=== PATIENT | female | born 1975 | race Hispanic/Latino ===

== ENCOUNTER 2020-05-19 11:32 | Inpatient (IN) | payer MEDICAID, SELFPAY ==
[2020-05-19] VITALS (35 sets, daily range): BP systolic 72–153; BP diastolic 44–72; PULSE 46–74; RESP 12–23; TEMP 32.9–37; O2SAT 99–100; BMI 27.1
--- NOTE | ~2020-05-19 | XR_ITS ---
EXAMINATION: XR chest 1V portable INDICATION: Shortness of breath and cough TECHNIQUE: Portable AP chest at 1220 hours COMPARISON: None available FINDINGS: There are airspace opacities of the mid and lower lung zones. The lung volumes are low. The re is no pneumothorax. There appears to be a small right pleural effusion. There is enlargement of th e cardiac silhouette. Neurostimulator leads project over the lower thoracic spine. IMPRESSION: 1. Airspace opacities of the mid and lower lung zones, consistent with pneumonia versus pulmonary matthias ma, or less likely atelectasis. 2. Enlargement of the cardiac silhouette which could be due to cardiomegaly and/or pericardial effusi on. 3. Likely small right pleural effusion. Reviewed, dictated and finalized at location A. IMPRESSION: 1. Airspace opacities of the mid and lower lung zones, consistent with pneumoni a versus pulmonary edema, or less likely atelectasis. 2. Enlargement of the cardiac silhouette which could be due to cardiomegaly and /or pericardial effusion. 3. Likely small right pleural effusion.
--- NOTE | ~2020-05-19 | XR_ITS ---
EXAMINATION: XR chest 1V portable DATE: 05/21/2020 05:55 INDICATION: Intubated TECHNIQUE: frontal view of the chest was obtained. COMPARISON: Chest radiograph dated 05/20/2020 FINDINGS: Endotracheal tube tip 3.4 cm above the jimmy. Nasogastric tube extends below the left hemidiaphragm with distal tip collimated off the study. Large-bore dual-lumen right internal jugular central venou s catheter with distal tip near the superior cavoatrial junction. Spinal stimulator leads project ove r the central canal of the lower thoracic spine. No significant change in diffuse bilateral patchy airspace opacities of lungs. There are also unchang ed small bilateral pleural effusions. No pneumothorax. Cardiomegaly. IMPRESSION: 1. Unchanged diffuse bilateral patchy airspace opacities which could represent pneumonia and/or pulmo nary edema. 2. Small bilateral pleural effusions. 3. Cardiomegaly. Reviewed, dictated and finalized at location A. IMPRESSION: 1. Unchanged diffuse bilateral patchy airspace opacities which could represent pneumonia and/or pulmonary edema. 2. Small bilateral pleural effusions. 3. Cardiomegaly.
--- NOTE | ~2020-05-19 | XR_ITS ---
EXAMINATION: XR chest 1V portable DATE: 05/29/2020 05:41 INDICATION: Lung infiltrates. COVID-19 pneumonia. TECHNIQUE: A single frontal view of the chest was obtained. COMPARISON: Chest single view 05/27/2020 FINDINGS: There are airspace and interstitial opacities throughout the lungs bilaterally. No pleural effusion or pneumothorax. Cardiomegaly is noted. A right subclavian central venous catheter is seen w ith tip at the superior cavoatrial junction. Electrodes overlie the spine. IMPRESSION: 1. Diffuse lung disease with slight improvement, consistent with pneumonia versus pulmonary edema yogi henry acute respiratory distress syndrome (ARDS). 2. Cardiomegaly. Reviewed, dictated and finalized at location A. IMPRESSION: 1. Diffuse lung disease with slight improvement, consistent with pneumonia vers us pulmonary edema versus acute respiratory distress syndrome (ARDS). 2. Cardiomegaly.
--- NOTE | ~2020-05-19 | XR_ITS ---
EXAMINATION: XR chest port-a-cath/central EXAM DATE: 05/19/2020 17:54 INDICATION: Logan catheter insertion. TECHNIQUE: Portable AP frontal chest x-ray was obtained. Comparison is made to prior examination from 05/19/2020. FINDINGS: There is severe enlargement of the cardiac silhouette. There is a new right-sided Logan c atheter overlying expected position. There is no pneumothorax suspected. There are no pleural effusio ns. There is extensive bilateral perihilar acute airspace disease unchanged. The infection, acute lung in jury, edema. There are no osseous abnormalities identified. IMPRESSION: 1. No evidence postprocedure pneumothorax. 2. Extensive perihilar acute airspace disease. 3. Cardiomegaly and/or pericardial effusion. Reviewed, dictated and finalized at location A.
--- NOTE | ~2020-05-19 | XR_ITS ---
EXAMINATION: XR chest ET placement EXAM DATE: 05/19/2020 21:11 INDICATION: Respiratory failure. TECHNIQUE: Portable AP frontal chest x-ray was obtained, time stamp on image size 8:46 p.m. Compariso n is made to prior examination from earlier same day. FINDINGS: Endotracheal tube tip is about 1 centimeters above the jimmy (ideal range is between 2 to 5 cm). Both lungs are being aerated. There is a nasogastric tube seen with tip collimated off the st udy, but below the left hemidiaphragm. There is a right-sided Logan catheter in position. Extensive bilateral perihilar distribution acute airspace disease likely pneumonia, acute lung injury , or edema. Please clinically correlate. There are no sizable pleural effusions. There is no pneum othorax suspected. Cardiac silhouette is enlarged The bones and soft tissues are unremarkable. rspace disease appears unchanged. IMPRESSION: 1. ET tube could be safely retracted 1 cm. Please note this was already repositioned on a subsequent x-ray with later time stamp 2. Extensive bilateral acute airspace disease unchanged. Reviewed, dictated and finalized at location A. IMPRESSION: 1. ET tube could be safely retracted 1 cm. Please note this was already reposi tioned on a subsequent x-ray with later time stamp 2. Extensive bilateral acute airspace disease unchanged.
--- NOTE | ~2020-05-19 | XR_ITS ---
EXAMINATION: XR abdomen NG/feed tube insert EXAM DATE: 05/19/2020 21:11 INDICATION: Feeding tube placement. TECHNIQUE: Frontal projection(s) of the abdomen for interpretation. There is no prior study for ashok santamaria. FINDINGS: Feeding tube tip and side-port project over stomach, expected position. Nonobstructive bow el gas pattern. Spine stimulator device. IMPRESSION: Feeding tube overlies expected position. Reviewed, dictated and finalized at location A.
--- NOTE | ~2020-05-19 | US_ITS ---
EXAMINATION: US venous doppler [facility] DATE: 05/20/2020 10:09 INDICATION: Bilateral lower limb swelling TECHNIQUE: Oates scale images without and with compression and Doppler images of the bilateral lower e xtremity veins were obtained. COMPARISON: None FINDINGS: The right common femoral vein, profunda femoral vein, femoral vein, popliteal vein, peroneal trunk, p osterior tibial veins, and greater saphenous vein are patent. The left common femoral vein, profunda femoral vein, femoral vein, popliteal vein, peroneal trunk, po sterior tibial veins, and greater saphenous vein are patent. IMPRESSION: 1. Patent bilateral lower extremity veins. No evidence of deep venous thrombosis. Reviewed, dictated and finalized at location B. IMPRESSION: 1. Patent bilateral lower extremity veins. No evidence of deep venous thrombosi s.
--- NOTE | ~2020-05-19 | XR_ITS ---
XR chest 1V portable DATE: 05/20/2020 06:28 INDICATION: Mechanical ventilation; extensive bilateral infiltrates TECHNIQUE: Portable upright AP chest on 05/20/2020 at 0540 hours COMPARISON: 05/19/2020 portable AP chest at 2046 hours FINDINGS: ET tube in satisfactory position approximately 4.8 cm above jimmy. A nasogastric tube is n oted in the lower body of the stomach. Thoracic spinal leads are noted. Right subclavian Logan catheter, catheter tip overlying the upper right atrium. No pneumothorax. There is cardiomegaly. There are prominent bilateral relatively symmetric primarily central and lower lung zone infiltrates; distribution suggests possible pulmonary edema. Bilateral pneumonia is not ex cluded. There are small bilateral pleural effusions. IMPRESSION: No significant change of extensive bilateral pulmonary infiltrates, cardiomegaly, small p leural effusions since 05/19/2020 ET tube 4.8 cm above jimmy in satisfactory position Reviewed, dictated and finalized at location A. IMPRESSION: No significant change of extensive bilateral pulmonary infiltrates, cardiomegaly, small pleural effusions since 05/19/2020 ET tube 4.8 cm above jimmy in satisfactory position
--- NOTE | ~2020-05-19 | US_ITS ---
EXAMINATION: US renal BI DATE: 05/20/2020 10:09 INDICATION: Elevated creatinine TECHNIQUE: Multiple grayscale and Doppler ultrasound images of the kidneys were obtained. COMPARISON: None. FINDINGS: The right kidney measures 12.3 x 4.4 x 6.4 cm. The left kidney measures 11.3 x 5.4 x 5.4 cm . The kidneys demonstrate increased parenchymal echogenicity. There is no hydronephrosis. The bladder is partially decompressed by a Skelton catheter. There is apparent mild irregular bladder wall thicken ing. IMPRESSION: 1. Medical renal disease. 2. Apparent irregular bladder wall thickening which may reflect cystitis. Reviewed, dictated and finalized at location B.
--- NOTE | ~2020-05-19 | XR_ITS ---
EXAMINATION: XR chest 1V portable DATE: 05/22/2020 06:23 INDICATION: Intubated TECHNIQUE: frontal view of the chest was obtained. COMPARISON: Chest radiograph dated 05/21/2020 FINDINGS: Endotracheal tube tip 5.9 cm above the jimmy. Nasogastric tube tip in proximal side port in the body of the stomach. Dual-lumen right subclavian central venous catheter with distal tip near the superio r cavoatrial junction. Spinal stimulator leads project over the central canal of the mid to lower tho racic spine. Interval decrease in patchy airspace opacities throughout both lungs relatively sparing the apices. S mall right and tiny left pleural effusions. No pneumothorax. Cardiomegaly. IMPRESSION: 1. Endotracheal tube tip 5.9 cm above the jimmy. Consider advancement by 3 cm. 2. Improving bilateral lung disease which could represent pulmonary edema and/or pneumonia. 3. Small right and tiny left pleural effusions. 4. Cardiomegaly. Reviewed, dictated and finalized at location A. IMPRESSION: 1. Endotracheal tube tip 5.9 cm above the jimmy. Consider advancement by 3 cm. 2. Improving bilateral lung disease which could represent pulmonary edema and/o r pneumonia. 3. Small right and tiny left pleural effusions. 4. Cardiomegaly.
--- NOTE | ~2020-05-19 | XR_ITS ---
EXAMINATION: XR chest ET placement EXAM DATE: 05/19/2020 21:11 INDICATION: Intubated. TECHNIQUE: Portable AP frontal chest x-ray was obtained. Comparison is made to prior examination from earlier same date. FINDINGS: Endotracheal tube tip is 3.5 centimeters above the jimmy (ideal range is between 2 to 5 cm ). There is a nasogastric tube seen with tip collimated off the study, but below the left hemidiaphr agm. Right-sided Logan catheter. Extensive bilateral perihilar predominant acute airspace disease. Consider pneumonia, acute lung inju ry, edema. There are no sizable pleural effusions. There is no pneumothorax suspected. The cardia c silhouette is enlarged. The bones and soft tissues are unremarkable. ET tube repositioned, othe rwise no interval change. IMPRESSION: 1. Line(s) and tube(s) in position. 2. Extensive bilateral acute airspace disease unchanged. Reviewed, dictated and finalized at location A.
--- NOTE | ~2020-05-19 | XR_ITS ---
EXAMINATION: XR chest 1V portable DATE: 05/27/2020 06:05 INDICATION: Pulmonary infiltrates TECHNIQUE: frontal view of the chest was obtained. COMPARISON: Chest radiograph dated 05/23/2020 FINDINGS: Large-bore dual-lumen right internal jugular central venous catheter with distal tip at the caudal cueto perior vena cava. Significant increase in patchy airspace opacities throughout both lungs relatively sparing portions of the subpleural lung particularly at the apices. Small bilateral pleural effusions , right greater than left. No pneumothorax. Cardiomegaly spinal stimulator leads projecting over the mid to lower thoracic central canal. IMPRESSION: 1. Significant interval increase in patchy bilateral airspace opacities most likely related to pulmon becky edema although pneumonia not excludable. 2. Small bilateral pleural effusions. 3. Cardiomegaly. Reviewed, dictated and finalized at location A. IMPRESSION: 1. Significant interval increase in patchy bilateral airspace opacities most li olivia related to pulmonary edema although pneumonia not excludable. 2. Small bilateral pleural effusions. 3. Cardiomegaly.
--- NOTE | ~2020-05-19 | XR_ITS ---
EXAMINATION: XR chest 1V portable DATE: 05/23/2020 06:30 INDICATION: Intubated TECHNIQUE: frontal view of the chest was obtained. COMPARISON: Chest radiograph dated 05/22/2020 FINDINGS: Endotracheal tube tip 3.9 cm above the jimmy. Nasogastric tube tip and proximal side port in the bod y of the stomach. Dual-lumen right subclavian central venous catheter with distal tip near the superi or cavoatrial junction. Spinal stimulator leads project over the central canal of the mid to lower th oracic spine. Continued decrease in patchy airspace opacities throughout both lungs relatively sparing the apices. Small right and tiny left pleural effusions. No pneumothorax. Cardiomegaly. IMPRESSION: 1. Limited improvement in bilateral lung disease which could represent pulmonary edema and/or pneumon ia. 2. Small right and tiny left pleural effusions. 3. Cardiomegaly. Reviewed, dictated and finalized at location A. IMPRESSION: 1. Limited improvement in bilateral lung disease which could represent pulmonar y edema and/or pneumonia. 2. Small right and tiny left pleural effusions. 3. Cardiomegaly.
--- NOTE | ~2020-05-19 | XR_ITS ---
EXAMINATION: XR fl guide central line place EXAM DATE: 05/19/2020 17:33 INDICATION: Logan catheter insertion. TECHNIQUE: Fluoroscopy used during XR fl guide central line place performed by Dr. Kashif Vargas. The DAP for this procedure was 0.5 mGym2. FINDINGS: Image demonstrates right-sided Logan catheter overlying expected position. There is evid ence of bilateral airspace disease. Correlate with procedure note. IMPRESSION: Fluoroscopy used during XR fl guide central line place. Reviewed, dictated and finalized at location A.
--- NOTE | 2020-05-19 11:00 | ECG_ITS ---
Measurements Intervals [place] Rate: 56 P: 58 CO: 160 QRS: 59 QRSD: 89 T: 32 QT: 494 QTc: 481 Interpretive Statements SINUS BRADYCARDIA DELAYED PRECORDIAL R/S TRANSITION PROLONGED QT INTERVAL BASELINE WANDER- V1, V3 ABNORMAL ECG Electronically Signed On 05-20-2020 6:54:50 CDT by Collins Aguirre D.O.
[2020-05-19 11:51] LABS: Glucose Point of Care 100 (65-105)
--- NOTE | 2020-05-19 12:10 | ED.GENADULT ---
HPI - General Adult General Chief complaint: Shortness of Breath/Dyspnea Stated complaint: CP/SOB Time Seen by Provider: 05/19/20 11:37 History of Present Illness HPI narrative: Patient is a 46-year-old female who presents the ER with multiple complaints. She is Filipino-speaking and her daughter as well as a Stratus were used for history taking. Patient reports over the last week she has had a multitude of issues. She began with feeling fatigued. She then began having some nausea and vomiting. She reports headache in the back of her head as well as some back pain. Patient does have history of chronic back pain for which she has a spinal stimulator. Patient is also grown much more short of breath and is audibly wheezing in the ER. She has been seen by her PCP who has prescribed her vitamins for anemia. She has not had a COVID swab. No known sick contacts. She stays at home with her family who is otherwise well. She denies aspirating on any of her vomit. Reports she has not kept anything down for a week. Related Data Home Medications Medication Instructions Recorded Confirmed atorvastatin [Lipitor] 40 mg PO HS 05/19/20 carvedilol [Coreg] 25 mg PO BID 05/19/20 furosemide [Lasix] 40 mg PO BID 05/19/20 metformin 850 mg PO BID 05/19/20 pyridoxine (vitamin B6) [Vitamin 250 mg PO DAILY 05/19/20 B-6] Allergies Allergy/AdvReac Type Severity Reaction Status Date / Time No Known Allergies Allergy Verified 05/19/20 12:01 Review of Systems Review of Systems: All systems reviewed & are unremarkable except as noted in HPI and below Constitutional: Constitutional: Reports fatigue, Denies fever(s) and Reports weakness ENT: Denies nasal congestion and Denies sore throat Cardiovascular: Cardiovascular: Denies chest pain, Denies rapid heart rate and Denies radiating jaw, neck or arm pain Respiratory: Respiratory: Reports cough, Reports dyspnea and Reports wheezing Gastrointestinal: Gastrointestinal: Denies abdominal pain, Reports nausea and Reports vomiting Musculoskeletal: Musculoskeletal: Reports back pain, Denies joint swelling and Denies muscle cramps Neurologic: Reports headache(s), Denies focal weakness and Denies numbness PMFSH Past Medical History Medical History (Updated 05/19/20 @ 18:32 by Robert London MD) Diabetes Erythropoietin deficiency anemia Hyperlipidemia Hypocalcemia Metabolic acidosis Surgical History Surgical History History of section Social History Social History Gender identity (if verbalized by the patient): Female Sexual Orientation (if Verbalized by the Patient): Straight or Heterosexual Exam Narrative: Exam Narrative: GENERAL: ill-appearing, well-nourished, and in mild acute distress. HEAD: Normocephalic, atraumatic. NECK: Supple CHEST: Coarse rales bilaterally. Mild respiratory distress.. HEART: Bradycardic and regular. Normal peripheral pulses. ABDOMEN: Soft, nontender, nondistended. EXTREMITIES: Normal range of motion. No edema. SKIN: Warm, dry, no rash. Bruising noted to right thigh from her puppy scratching her. NEURO: Alert and oriented x3. PSYCH: Normal mood and affect. Course Course Emergency Course: Patient is exceedingly ill. Fluid bolus was attempted for hypotension with mild success initially but then patient had rebound hypotension. Due to severity of illness patient received IV antibiotics for possible pneumonia however infiltrates on x-ray could be related to volume overload. After further discussion with the daughter it was discovered patient had been seen by a technical account executive or in October of this year and told that she may require dialysis in the future. Was also reported patient received blood transfusion previously. Patient is a full code. Discussed with patient's daughter who is helped interpret during the constantly skinner
[2020-05-19] MEDS: SODIUM CHLORIDE 0.9% IV 1,800 ML/1,800 ML ML 999 ML IV CONT (12:20)
--- NOTE | 2020-05-19 13:04 | PC.NURSE ---
rn explained to pt and daughter that d/t her bp being continuously in the 80/30-80/40 range that we could not currently give her anything stronger than the tylenol ordered. Will continue to evaluate bp and inform dr of repeated request.
--- NOTE | 2020-05-19 13:23 | PC.NURSE ---
Agnieszka with [facility] was able to obtain iv access and draw blood work for labs. 22g rt forearm - bp cuff moved to leg per Agnieszka.
[2020-05-19 13:42] LABS: Lactic Acid Reflex 1.5 mmol/L (0.7-2.1)
[2020-05-19 13:46] LABS: INR 1.5; Immature Granulocyte Absolute 0.01 K/mm3 (0.00-0.031); Immature Granulocyte Percent A 0.5 % (0-0.5); Immature Platelet Fraction Pct 3.7 % (0.9-11.2); Lymphocytes Absolute Auto 0.22 K/mm3 (0.9-3.2); Lymphocytes Percent Auto 10.1 % (18.3-44.2); Mean Corpuscular HGB Conc 31.9 g/dl (32-36); Mean Corpuscular Hemoglobin 29.1 pg (26-34); Mean Corpuscular Volume 91.2 fl (80-100); Mean Platelet Volume 13.2 fl (7.4-10.4); Monocytes Absolute Auto 0.1 K/mm3 (0.1-0.6); Monocytes Percent Auto 3.7 % (2.6-8.5); Neutrophils Absolute Auto 1.9 K/mm3 (1.3-6.7); Neutrophils Percent Auto 85.7 % (45.5-73.1); Platelet Count Result 52 k/mm3 (150-375); Red Blood Count 2.27 M/mm3 (4.2-5.4); Red Cell Distribution Width 16.8 % (11.5-14.5); White Blood Count 2.2 K/mm3 (4.5-10.0)
[2020-05-19 13:47] LABS: Alanine Aminotransferase 10 U/L (4-35); Albumin Level 1.8 g/dL (3.5-5.1); Alkaline Phosphatase 54 U/L (38-126); Anion Gap 16.1 mmol/L (7-16); Aspartate Amino Transferase 28 U/L (14-36); Bilirubin,Total 0.1 mg/dL (0.2-1.3); Blood Urea Nitrogen 99 mg/dL (7-17); CRP 6.7 mg/dL (<1.0); Calcium 5.5 mg/dL (8.4-10.2); Carbon Dioxide 6 mmol/L (22-30); Chloride 114 mmol/L (98-107); Glucose 61 mg/dL (65-105); Partial Thromboplastin Time 55.3 SECONDS (22.3-36.8); Potassium 4.1 mmol/L (3.4-5.0); Sodium 132 mmol/L (137-145)
[2020-05-19 13:51] LABS: Estimated CRCL calculation 4 ml/min; Estimated Glomerular Filt Rate 3
[2020-05-19 13:52] LABS: NT Pro B Type Natriuretic Pept > 35000 PG/ML (5-100)
[2020-05-19 13:55] LABS: Hemoglobin 6.6 g/dL (12.0-15.0)
[2020-05-19 13:56] LABS: Hematocrit 20.7 % (37.0-47.0)
[2020-05-19] MEDS: DEXTROSE 50% 25 GM/50 ML SYRINGE IV PUSH (14:07)
[2020-05-19 14:44] LABS: Alveolar/Arterial O2 Gradient 60.2 mmHg; Base Excess ABG -22.7 mEq/l (+/-2.0); Carboxyhemoglobin 0.1 % THb (0-2.0); Fractional Inspired Oxygen 28 %; HCO3 ABG 5.8 mEq/l (22.0-26.0); Methemoglobin ABG 0.3 %THb (0-1.5); Oxygen Content ABG 10.7 %vol (16.0-22.0); Oxygen Saturation ABG 96.3 % (95.0-100.0); Oxyhemoglobin 96.6 % THb (90.0-100.0); PO2 ABG 114.8 mmHg (80.0-100.0)
[2020-05-19 14:49] LABS: PCO2 ABG 20.9 mmHg (35.0-45.0); pH ABG 7.059 (7.350-7.450)
[2020-05-19 14:50] LABS: Device NASAL CANNULA; Modified Allen's Test Pass; Site Drawn LEFT RADIAL; Total Hemoglobin 7.7 g/dL (12.0-18.0)
[2020-05-19 14:57] LABS: Hematocrit 22.5 % (37.0-47.0); Hemoglobin 7.2 g/dL (12.0-15.0); Immature Granulocyte Absolute 0.02 K/mm3 (0.00-0.031); Immature Granulocyte Percent A 0.8 % (0-0.5); Lymphocytes Absolute Auto 0.21 K/mm3 (0.9-3.2); Lymphocytes Percent Auto 8.2 % (18.3-44.2); Mean Corpuscular Hemoglobin 29.3 pg (26-34); Mean Corpuscular Volume 91.5 fl (80-100); Mean Platelet Volume 12.1 fl (7.4-10.4); Monocytes Absolute Auto 0.1 K/mm3 (0.1-0.6); Monocytes Percent Auto 3.1 % (2.6-8.5); Neutrophils Absolute Auto 2.2 K/mm3 (1.3-6.7); Neutrophils Percent Auto 87.9 % (45.5-73.1); Platelet Count Result 62 k/mm3 (150-375); Red Blood Count 2.46 M/mm3 (4.2-5.4); Red Cell Distribution Width 16.8 % (11.5-14.5); White Blood Count 2.6 K/mm3 (4.5-10.0)
[2020-05-19] MEDS: CALCIUM GLUC 1,000 MG/NS 50 ML 1,000 MG/50 ML BAG 100 MG IVPB (15:39)
--- NOTE | 2020-05-19 16:01 | WPDANESEPPF ---
Anes - Initial Pre Proc Eval Procedure: Operation Date: 05/19/20 16:00 Proposed Procedures p Insertion Internal Jugular Logan Catheter - Kashif Vargas MD Date/Time: 05/19/20 16:01 Pre Op Diagnosis: acute renal failure,pneumonia,covid pui,anemia Patient Data Age: 46 Gender: F Height: 1.57 m Weight: 61.36 kg Last Vital Signs Temp 37.0 C 05/19/20 11:53 Pulse 55 L 05/19/20 12:10 Resp 17 05/19/20 12:10 BP 98/59 L 05/19/20 12:10 Pulse Ox 100 05/19/20 12:10 Allergies Allergy/AdvReac Type Severity Reaction Status Date / Time No Known Allergies Allergy Verified 05/19/20 12:01 Home Medications Medication Instructions Recorded Confirmed Type atorvastatin [Lipitor] 40 mg PO HS 05/19/20 History carvedilol [Coreg] 25 mg PO BID 05/19/20 History furosemide [Lasix] 40 mg PO BID 05/19/20 History metformin 850 mg PO BID 05/19/20 History pyridoxine (vitamin B6) [Vitamin 250 mg PO DAILY 05/19/20 History B-6] Laboratory Tests 05/19/20 05/19/20 05/19/20 11:46 12:07 13:15 WBC 2.2 K/mm3 L K/mm3 (4.5-10.0) RBC 2.27 M/mm3 L M/mm3 (4.2-5.4) Hgb 6.6 g/dL L* g/dL (12.0-15.0) Hct 20.7 % L* % (37.0-47.0) MCV 91.2 fl fl (80-100) MCH 29.1 pg pg (26-34) MCHC 31.9 g/dl L g/dl (32-36) RDW 16.8 % H % (11.5-14.5) Plt Count 52 k/mm3 L k/mm3 (150-375) MPV 13.2 fl H fl (7.4-10.4) Immature Gran % (Auto) 0.5 % % (0-0.5) Neut % (Auto) 85.7 % H % (45.5-73.1) Lymph % (Auto) 10.1 % L % (18.3-44.2) [place] % (Auto) 3.7 % % (2.6-8.5) Eos % (Auto) 0.0 % % (0-4.4) Baso % (Auto) 0.0 % L % (0.2-1.2) Lymph # (Auto) 0.22 K/mm3 L K/mm3 (0.9-3.2) [place] # (Auto) 0.1 K/mm3 K/mm3 (0.1-0.6) Eos # (Auto) 0.0 K/mm3 K/mm3 (0-0.3) Baso # (Auto) 0.0 K/mm3 K/mm3 (0.0-0.1) Abs Immat Gran (auto) 0.01 K/mm3 K/mm3 (0.00-0.031) Absolute Neuts (auto) 1.9 K/mm3 K/mm3 (1.3-6.7) Absolute Nucleated RBC 0.0 K/mm3 K/mm3 (0.0-0.012) Nucleated RBC % 0.0 % % (0.0-0.2) % Immature Plt Fraction 3.7 % % (0.9-11.2) PT INR APTT Puncture Site ABG pH ABG pCO2 ABG pO2 ABG PO2/FiO2 Ratio ABG HCO3 ABG O2 Saturation ABG O2 Content ABG Base Excess A-a Gradient Oxyhemoglobin Carboxyhemoglobin Methemoglobin Reduced Hemoglobin Total Hemoglobin O2 Delivery Device O2 Liters/Min FiO2 Sodium Potassium Chloride Carbon Dioxide Anion Gap BUN Creatinine Estim Creat Clear Calc Estimated GFR Glucose POC Capillary Glucose 100 mg/dl mg/dl (65-105) Lactic Acid Calcium Total Bilirubin AST ALT Alkaline Phosphatase C-Reactive Protein NT-Pro-B Natriuret Pep Total Protein Albumin SARS-CoV-2 RNA (RT-PCR) Pending Blood Type Antibody Screen Crossmatch 05/19/20 05/19/20 05/19/20 13:15 13:15 13:15 WBC RBC Hgb Hct MCV MCH MCHC RDW Plt Count MPV Immature Gran % (Auto) Neut % (Auto) Lymph % (Auto) [place] % (Auto) Eos % (Auto) Baso % (Auto) Lymph # (Auto) [place] # (Auto) Eos # (Auto) Baso # (Auto)
[2020-05-19 16:13] LABS: Glucose Point of Care 113 (65-105)
[2020-05-19] MEDS: HEPARIN SODIUM 5,000 UNITS/ML VIAL 5000 UNITS SUB-Q (16:45)
[2020-05-19] MEDS: LIDO 1%/EPINEPHRINE 1:100,000 20 ML VIAL 4 ML INFILTRATE (17:06)
--- NOTE | 2020-05-19 17:12 | PM.CNGS ---
Assessment and Plan Assessment and plan (1) Flfva-fe-itljyvr renal failure: Code(s): N17.9 - Acute kidney failure, unspecified; N18.9 - Chronic kidney disease, unspecified Status: Acute Assessment and Plan: Needs urgent dialysis this evening. (2) Hypotension: Code(s): I95.9 - Hypotension, unspecified Status: Acute Assessment and Plan: Started on antibiotics and to be evaluated by medical service and outlet manager. (3) Encounter for central line placement: Code(s): Z45.2 - Encounter for adjustment and management of vascular access device Status: Acute Assessment and Plan: will place Logan dialysis catheter with IV side port in the OR under fluoroscopy with anesthesia emergently. History of Present Illness Consult details Consult date: 05/19/20 Reason for consult: central line Narrative: Patient came to the emergency room very unstable and in need of urgent dialysis. She is taken to surgery for placement of a Logan catheter under fluoroscopy on an emergent basis. She is an anesthesia class 5 E. Review of Systems Review of Systems: ROS unobtainable: Yes unobtainable due to mental status PMFSH Past Medical History Medical History (Updated 05/19/20 @ 17:16 by Kashif Vargas MD) Diabetes Hyperlipidemia Surgical History Surgical History (Updated 05/19/20 @ 12:15 by Robert London MD) History of section Social History Social History Gender identity (if verbalized by the patient): Female Sexual Orientation (if Verbalized by the Patient): Straight or Heterosexual Meds Home Medications and Allergies Home Medications Medication Instructions Recorded Confirmed Type atorvastatin [Lipitor] 40 mg PO HS 05/19/20 History carvedilol [Coreg] 25 mg PO BID 05/19/20 History furosemide [Lasix] 40 mg PO BID 05/19/20 History metformin 850 mg PO BID 05/19/20 History pyridoxine (vitamin B6) [Vitamin 250 mg PO DAILY 05/19/20 History B-6] Allergies Allergy/AdvReac Type Severity Reaction Status Date / Time No Known Allergies Allergy Verified 05/19/20 12:01 Vital Signs Vital Signs - 24 hr 05/19/20 11:38 05/19/20 11:53 05/19/20 11:55 Temperature 37.0 C 37.0 C Pulse Rate 56 L 56 L Respiratory Rate 23 H 18 Blood Pressure 87/50 L Pulse Oximetry 100 100 100 08/06/20 12:10 05/19/20 13:20 05/19/20 14:20 Temperature Pulse Rate 55 L 49 L 46 L Respiratory Rate 17 14 14 Blood Pressure 98/59 L 102/63 103/59 L Pulse Oximetry 100 100 100 Exam Const: General: ill appearing Nutritional Appearance: average body habitus Orientation/consciousness: lethargic and Other orientation findings ( somnolent) Results Labs Result diagrams: 05/19/20 14:48 05/19/20 13:15 Labs: Abnormal lab results 05/19/20 05/19/20 05/19/20 Range/Units 13:15 13:15 13:15 WBC 2.2 L (4.5-10.0) K/mm3 RBC 2.27 L (4.2-5.4) M/mm3 Hgb 6.6 L* (12.0-15.0) g/dL Hct 20.7 L* (37.0-47.0) % MCHC 31.9 L (32-36) g/dl RDW 16.8 H (11.5-14.5) % Plt Count 52 L (150-375) k/mm3 MPV 13.2 H (7.4-10.4) fl Immature Gran % (Auto) (0-0.5) % Neut % (Auto) 85.7 H (45.5-73.1) % Lymph % (Auto) 10.1 L (18.3-44.2) % Baso % (Auto) 0.0 L (0.2-1.2) % Lymph # (Auto) 0.22 L (0.9-3.2) K/mm3 PT 18.0 H (11.1-14.7) Seconds APTT 55.3 H (22.3-36.8) SECONDS ABG pH (7.350-7.450) ABG pCO2 (35.0-45.0) mmHg ABG pO2 (80.0-100.0) mmHg ABG HCO3 (22.0-26.0) mEq/l ABG O2 Content (16.0-22.0) %vol Total Hemoglobin (12.0-18.0) g/dL Sodium 132 L (137-145) mmol/L Chloride 114 H (98-107) mmol/L Carbon Dioxide 6 L (22-30) mmol/L Anion Gap 16.1 H (7-16) mmol/L BUN 99 H (7-17) mg/dL Creatinine 13.50 H (0.7-1.0) mg/dL Estimated GFR 3 L (59 - ) Glucose 61 L (65-105) mg/dL POC Capillary Glucose (65-105) mg/dl Calc
--- NOTE | 2020-05-19 17:18 | P.OP_ITS ---
Procedure Note - Detailed Date of procedure: 05/19/20 Pre-op diagnosis: acute renal failure,pneumonia,covid pui,anemia Acute on chronic renal failure, inadequate venous access Post-op diagnosis: same Procedure performed: attempted placement right internal jugular Logan catheter, placement right subclavian Logan catheter under fluoroscopy Description of procedure: the patient was taken emergently from ER to the operating room and placed in a supine position. Critical care monitoring was provided by the Anesthesia Department throughout the procedure. She was not hypoxemic and did not need intubated. She was very somnolent. The right subclavian and right neck areas were prepped and draped. Multiple attempts were made to cannulate the right internal jugular vein. Although the carotid artery was accessed, I was never able to cannulate the internal jugular vein. I then attempted to cannulate the right subclavian vein. The right subclavian artery was again cannulated. Finally I had was able to cannulate the right subclavian vein. There was considerable back pressure but no pulsatile flow. The guidewire was passed and position confirmed by C-arm fluoroscopy. Serial dilators were used and then a heparinized dual-lumen Logan catheter with side port was advanced over the guidewire and the tip was placed in the distal SVC right atrial junction. Both ports and the IV side port aspirated blood he freely and flushed well with heparin. Each of these ports was capped. Fluoroscopy showed the line to be in good position. Portable chest x-ray is pending. Sterile dressing was applied. Patient transferred directly to the intensive care unit. Anesthesia: MAC and local Surgeon: Kashif Vargas MD Order Fulfillment Specialist: Funmi DANGELO Estimated blood loss (mL): 10 Drains: No Packing: No Pathology: none sent Complications: None Condition: stable Disposition: ICU Findings: DRU CATHETER TIP IN THE DISTAL SVC RIGHT ATRIAL JUNCTION.
[2020-05-19] MEDS: HEPARIN SODIUM, PORCINE 10,000 UNITS/10 ML VIAL 10000 UNITS IV PUSH (17:39)
--- NOTE | 2020-05-19 17:43 | PM.CNNEP ---
Assessment and Plan Assessment and plan (1) Xjlzp-jw-acsqfco renal failure: Code(s): N17.9 - Acute kidney failure, unspecified; N18.9 - Chronic kidney disease, unspecified Status: Acute Assessment and Plan: the patient probably has chronic kidney disease according to her history. Etiology may be diabetes. She does have very low albumin and so could have nephrotic syndrome. This could be from her diabetes as well. She could have other causes of her chronic kidney disease as well including infiltrative diseases, obstruction, inflammatory diseases, or vascular diseases. We will evaluate this when she is more stable. Whether this very high BUN and creatinine is just chronic progression of the above disease or if it is acute kidney injury is unclear at this time. We will do evaluation for this as well. Right now her kidney poisons are so high and her bicarbonate level is very low so I think we should emergently dialyze her. I discussed at length with Dr. London and with MIGUELITO García. I have talked with the dialysis nurse and he will get her on treatment shortly. (2) Hypotension: Code(s): I95.9 - Hypotension, unspecified Status: Acute Assessment and Plan: The patient's blood pressure is very low. If this were purely end-stage renal disease causing her to be ill then her blood pressure generally would be high. So will check for other etiologies of hypotension such as sepsis, cardiac failure, endocrine issues, etc. She will get supportive care. She may need pressors if her blood pressure drops any more especially when she starts dialysis. (3) Metabolic acidosis: Code(s): E87.2 - Acidosis Status: Acute Assessment and Plan: The patient has metabolic acidosis. Her anion gap is 12 . This is technically normal however her albumin is only 1.9 so this may be in fact a little elevated. High anion gap metabolic acidosis can come from uremia which she certainly has. Lactic acidosis can do this as well. She was on metformin as an outpatient apparently. Her lactic acid level drawn in the emergency room was normal at 1.5. Dialysis would take off any residual Metformin that she might have in our system if she was indeed taking it. Her blood gas also shows respiratory acidosis. this is probably because she was ill in the ER but also now she has been sedated because of putting the temporary dialysis catheter in. So she may really retaining CO2 a little more. I asked the nurse to draw another stat blood gas. Discussed with MIGUELITO García. The patient may need to be intubated. (4) Erythropoietin deficiency anemia: Code(s): D63.1 - Anemia in chronic kidney disease Status: Acute Assessment and Plan: The patient's hemoglobin is low. This may be from her chronic kidney disease. She could have some other cause however including GI bleeding, hemolysis etc. Will check stool guaiacs and LDH. (5) Hypocalcemia: Code(s): E83.51 - Hypocalcemia Status: Acute Assessment and Plan: Her calcium levels very low. This is not uncommon in renal failure. She has received some IV calcium and we will use a high calcium bath in dialysis. (6) Diabetes: Code(s): E11.9 - Type 2 diabetes mellitus without complications Status: Acute Assessment and Plan: She is going to have Accu-Cheks and possibly sliding-scale insulin History of Present Illness Reason for Consult Consult date: 05/19/20 Chief Complaint Chief complaint: acute renal failure,pneumonia,covid pui,anemia History of Present Illness Narrative: This patient is a very pleasant 46-year-old lady who is new to this hospital and to this service. The patient just got back from the operating room and cannot give a history. Patient came to the emergency room because she has had about a week or 2 of symptoms such as nausea, vomiting, headaches, s
--- NOTE | 2020-05-19 18:00 | PM.IMHP ---
H&P: HPI History of Present Illness Date/Time: 05/19/20 18:00 <Shantelle García PA-C - Last Filed: 05/20/20 22:00> Chief complaint: Multiple complaints. <Shantelle García PA-C - Last Filed: 05/20/20 22:00> Narrative: Leroy Falcon is a 46-year-old female with chronic kidney disease stage, hypertension, hyperlipidemia, and type 2 diabetes mellitus who presented to the emergency department earlier today via EMS from home with multiple complaints. The patient is Kenyan-speaking and I was able to get only a small amount of history from her with my limited Kenyan. An attempt to obtain a formal history was unsuccessful, as the patient is so weak and drowsy that the park interpreter was unable to understand what she was trying to say. Her daughter, Bhavna, was able to provide me with some history as detailed below. The patient her family recently moved to the area from just outside of [place], and she has never been seen at this facility before. She has been hospitalized in the past for uncontrolled diabetes, but her daughter reports that her diabetes has been under pretty strict control over the past 1 year. The patient's last hospitalization was in October 2019 for what sounds like pneumonia. At that time she was told she had chronic kidney disease stage 4, and that she would probably be on dialysis at some point in time. In any regard, she has not felt well for the past 10 to 14 days with multiple symptoms including nausea and vomiting (patient reportedly is unable to keep down liquids or solids for any length of time), progressive weakness, lightheadedness / dizziness upon standing, and fatigue. yesterday she told her daughter that she had several episodes of diarrhea as well. Daughter leaves for work early in the morning ( the patient is on disability) and she typically calls her mother mid morning to check up on her. today she phoned her mom around 10:00, and she did not answer. She phoned again 20 minutes later in the patient did answer however was unable to speak and she sounded like she was breathing heavily. Daughter than raced home to check on her, and found her mother very short of breath and weak. She called 911, and on EMS arrival the patient was hypoglycemic with a glucose of 48. She was also relatively hypotensive with a blood pressure of 90/50. She was found to have presumed acute kidney injury on chronic kidney failure as well as profound metabolic acidosis, is being admitted in this setting. In fact, she went for placement of a Logan catheter and is being started on dialysis tonight. From what limited information together from the patient herself, she has had a diffuse headache for the past 2 weeks. She has not noticed a decrease in urine output or change in her urine. she began feeling short of breath sometime yesterday, and has gotten progressively worse. She has not had fever, chills, sweats, cold or flu symptoms, or cough. No recent travel or sick contacts. The family members that she lives at home with are tested for COVID-19 weekly due to their job, and have been negative. Upon my discussions with the patient, she reports a diffuse headache for the past 2 weeks Due to continued tachypnea impending respiratory failure, the decision was made to intubate the patient after discussions with Dr. Patel. <Shantelle García PA-C - Last Filed: 05/20/20 22:00> Review of Systems Review of Systems: Narrative: A complete review of systems was very limited due to the patient's clinical condition as detailed in HPI. She has very poor vision, and she is seeing a retinal specialist up in [place]. It sounds as though she started having injections and laser treatment sometime this year. Except as documented, all other systems were negative. <Shantelle García PA-C - Last Filed: 05/20/20 22:00> [facility] Past Medical History Medical History: Medical History Acquired
[2020-05-19 18:06] LABS: Alveolar/Arterial O2 Gradient 201.4 mmHg; Base Excess ABG -22.4 mEq/l (+/-2.0); Carboxyhemoglobin 0.3 % THb (0-2.0); Fractional Inspired Oxygen 50 %; HCO3 ABG 5.5 mEq/l (22.0-26.0); Methemoglobin ABG 0.5 %THb (0-1.5); Oxygen Content ABG 10.6 %vol (16.0-22.0); Oxygen Saturation ABG 97.7 % (95.0-100.0); Oxyhemoglobin 96.4 % THb (90.0-100.0); PO2 ABG 134.2 mmHg (80.0-100.0); PO2 FiO2 Ratio Arterial Blood 2.68 %; Reduced Hemoglobin 2.8 %THb (0-5.0)
[2020-05-19 18:09] LABS: Device SIMPLE MASK; PCO2 ABG 18.6 mmHg (35.0-45.0); Site Drawn RIGHT BRACHIAL; Total Hemoglobin 7.6 g/dL (12.0-18.0); pH ABG 7.089 (7.350-7.450)
[2020-05-19] MEDS: SODIUM BICARBONATE 8.4% 50 MEQ/50 ML VIAL 100 MEQ IV PUSH (18:21)
[2020-05-19 18:36] LABS: Glucose Point of Care 105 (65-105)
[2020-05-19 19:31] LABS: Hematocrit 19.4 % (37.0-47.0)
[2020-05-19 19:32] LABS: Hemoglobin 6.4 g/dL (12.0-15.0)
[2020-05-19 19:34] LABS: Hepatitis B Surface Antigen Negative (Negative)
[2020-05-19 19:43] LABS: Lactic Acid Reflex 1.5 mmol/L (0.7-2.1)
[2020-05-19 19:44] LABS: Creatine Kinase 299 U/L (30-135)
[2020-05-19 19:45] LABS: Hemoglobin A1C 5.1 % (<5.7)
[2020-05-19 19:51] LABS: Hepatitis B Surface Anti Res Negative
[2020-05-19 19:51] LABS: Alanine Aminotransferase 11 U/L (4-35); Albumin Level 1.8 g/dL (3.5-5.1); Alkaline Phosphatase 52 U/L (38-126); Anion Gap 15.1 mmol/L (7-16); Aspartate Amino Transferase 30 U/L (14-36); Bilirubin,Total 0.1 mg/dL (0.2-1.3); Blood Urea Nitrogen 95 mg/dL (7-17); CRP 7.5 mg/dL (<1.0); Calcium 5.4 mg/dL (8.4-10.2); Carbon Dioxide 10 mmol/L (22-30); Chloride 113 mmol/L (98-107); Glucose 90 mg/dL (65-105); Lactate Dehydrogenase 956 U/L (313-618); Magnesium 1.5 mg/dL (1.6-2.3); Phosphorus 7.1 mg/dL (2.5-4.5); Potassium 4.1 mmol/L (3.4-5.0); Sodium 134 mmol/L (137-145)
[2020-05-19 19:52] LABS: Complement C3 54 mg/dL (88-165)
[2020-05-19 19:53] LABS: Estimated CRCL calculation 5 ml/min; Estimated Glomerular Filt Rate 3
[2020-05-19 19:53] LABS: Erythrocyte Sedimentation Rate 124 mm/hr (0-20)
[2020-05-19 19:57] LABS: Acetaminophen 13 ug/mL (10-30); Salicylate 1.6 mg/dL (2-20)
--- NOTE | 2020-05-19 20:00 | P.PCNBED_ITS ---
Procedures Intubation Intubation Date: 05/19/20 Intubation Time: 20:00 Consent: Patient and her daughter gave verbal consent. A pre-procedural Time-Out was completed immediately before starting the procedure and confirmed: Patient Identification, Site, Procedure, Patient Position and the Availability of Requisite Equipment: Yes Sedative: etomidate Mg given: 10 Paralytic: rocuronium Mg given: 40 Laryngoscope: fiber optic video scope ET tube size: cuffed Tube secured depth (cm): 20 Tube secured location: lips Tube placement confirmation: visualized tube passing through cords, equal breath sounds bilaterally, no breath sounds over epigastrium and confirmation by capnometry Patient tolerated procedure: well Intubation complications: none Additional comments: * Initial chest x-ray showed the ET tip near the right mainstem. ET tube was withdrawn 2 centimeters. * After discussions with Dr. Patel, attending critical care physician, was decided that it would be best to go ahead and intubate the patient. Dr. Patel did give orders for vent settings and sedation. * I discussed the planned procedure with Dr. Harish Childers, attending ED physician; he was available to help if need be.
[2020-05-19 20:04] LABS: Iron < 10 ug/dL (37-170)
[2020-05-19 20:09] LABS: Parathyroid Intact 316.8 pg/mL (7.5-53.5)
[2020-05-19 20:38] LABS: Hepatitis B Surface Antigen Negative (Negative)
--- NOTE | 2020-05-19 20:40 | WPDPROCEDUR ---
Procedures Central Line Placement Right Femoral: Central Line Date: 05/19/20 Central Line Time: 20:40 Discussed w/ the patient/family/POA,the placement of a central venous catheter, including its clinical necessity/indication & associated potential risks, benifits and alternatives.: Yes The patient/family/POA understand(s) and acknowledge(s) the need to proceed with central venous catheter insertion as an important element of the patient's clinical management.: Yes Consent: Both the patient her daughter gave verbal consent. Time Out Performed: Yes Patient Position: supine Patient placed on monitor/pulse ox: Yes Provider Prep: mask, sterile gown, sterile gloves, Max. sterile barrier precautions, cap and hand hygiene with conventional soap/water or alcohol based hand rub Central line prep: Povidone-Iodine 1% and sterile full body sheet applied Local anesthesia used: lidocaine 1% Amount of anesthesia used (ml): 5 Sterile US Technique with sterile gel/sterile probe covers: Yes Central line lumen inserted: triple Namibian: 7 Length (cm): 16 Post procedure: sutured in place, good blood return, all ports aspirated, flushed, capped, tegaderm, hemostatic disc and aseptic technique maintained throughout procedure Post procedure x-ray: other (N/A with femoral placement. ) Patient tolerated procedure: well Complications: none Additional comments: Dr. Harish Childers, attending ED physician was notified of the procedure and was available to help if need be.
[2020-05-19 20:56] LABS: Hepatitis B Surface Anti Res Negative; Hepatitis C Virus Antibody Negative (Negative)
[2020-05-19 21:02] LABS: Vitamin B12 > 1000.0 pg/mL (239-931)
[2020-05-19 21:26] LABS: Free T4 Free Thyroxine Reflex 1.11 ng/dL (0.78-2.19)
[2020-05-19] MEDS: DOPamine 400 MG/D5W 250 ML 400 MG/250 ML BAG 12.6 MG IV CONT (22:05)
[2020-05-19 22:31] LABS: Base Excess ABG -10.1 mEq/l (+/-2.0); Carboxyhemoglobin 0.3 % THb (0-2.0); Fractional Inspired Oxygen 40 %; HCO3 ABG 14.2 mEq/l (22.0-26.0); Methemoglobin ABG 0.7 %THb (0-1.5); Oxygen Content ABG 9.4 %vol (16.0-22.0); Oxygen Saturation ABG 95.2 % (95.0-100.0); Oxyhemoglobin 93.3 % THb (90.0-100.0); PCO2 ABG 25.3 mmHg (35.0-45.0); PO2 ABG 76.3 mmHg (80.0-100.0); PO2 FiO2 Ratio Arterial Blood 1.91 %; Reduced Hemoglobin 5.7 %THb (0-5.0); pH ABG 7.367 (7.350-7.450)
[2020-05-19 22:32] LABS: Arterial Blood Gas PEEP 5 cmH2O; Arterial Blood Gas Tidal Volume 350 ml; Arterial Blood Gas Vent Mode CMV; Arterial Blood Gas Ventilator rate 20 /MIN; Device VENTILATOR; Modified Allen's Test Unable to perform; Site Drawn LEFT RADIAL; Total Hemoglobin 7.1 g/dL (12.0-18.0)
[2020-05-19 22:56] LABS: Total Triiodothyronine (T3) 0.35 NG/ML (0.97-1.69)
[2020-05-19] MEDS: HEPARIN SODIUM 1,000 UNITS/ML VIAL 1000 UNITS IV PUSH (23:55)
[2020-05-20] VITALS (56 sets, daily range): BP systolic 104–198; BP diastolic 49–87; PULSE 59–75; RESP 11–21; TEMP 35.1–37; O2SAT 100; BMI 27.5
--- NOTE | 2020-05-20 | ECHO_ITS ---
Patient Info Name: Leroy Falcon Age: 46 years : 06/28/1973 Gender: Female Ht: 62 in Wt: 148 lbs BSA: 1.73 m2 HR: 62 bpm BP: 122 / 51 mmHg Technical Quality: Good Exam Date: 05/20/2020 8:25 AM Exam Location: [facility] Patient Status: Inpatient Admit Date: 05/19/2020 Staff Ordering Physician: Shantelle García PA-C Brand Engineer: Erlin Reaves, NEIL, RT Attending Provider: Edwin Card MD Referring Physician: Raquel RAUSCH; Exam Type: CA echo dop color flow w con Study Info Indications R06.02 - Shortness of breath Complete two-dimensional, color flow and Doppler transthoracic echocardiogram is performed. Summary 1. Left ventricular chamber dimension is normal. 2. Left ventricular systolic function is normal, estimated at 60-65%. 3. There is moderately increased left ventricular wall thickness. 4. The left ventricular diastolic function is abnormal. 5. E/e' 26 is significantly elevated. 6. Global longitudinal strain is abnormal at -13.1%. 7. Left atrial chamber dimension is mildly enlarged. 8. There is mild tricuspid valve regurgitation. 9. Moderate pulmonary hypertension, estimated pulmonary arterial systolic pressure is 54 mmHg. 10. Dilated inferior vena cava with <50% collapse upon inspiration consistent with significantly elevated right atrial pressure, 15 mmHg. 11. There is small to moderate circumferential pericardial effusion. Posterior effusion measures at 1-1.3 cm but it is smaller in other locations. Left Ventricle E/e' 26 is significantly elevated. Global longitudinal strain is abnormal at -13.1%. Left ventricular chamber dimension is normal. Left ventricular systolic function is normal, estimated at 60-65%. There is moderately increased left ventricular wall thickness. The left ventricular diastolic function is abnormal. Right Ventricle Right ventricular chamber dimension is normal. Right ventricular systolic function is normal. Left Atria Left atrial chamber dimension is mildly enlarged. Right Atria Right atrial chamber dimension is normal. Aortic Valve The aortic valve is trileaflet. There is no aortic valve stenosis. There is no aortic valve regurgitation. Pulmonic Valve There is no pulmonic regurgitation. Mitral Valve There is no mitral valve stenosis. There is no mitral valve regurgitation. Tricuspid Valve There is mild tricuspid valve regurgitation. Moderate pulmonary hypertension, estimated pulmonary arterial systolic pressure is 54 mmHg. Pericardium/Pleural There is small to moderate circumferential pericardial effusion. Posterior effusion measures at 1-1.3 cm but it is smaller in other locations. Inferior Vena Cava Dilated inferior vena cava with <50% collapse upon inspiration consistent with significantly elevated right atrial pressure, 15 mmHg. Aorta The aortic root size at the sinus of Valsalva is normal. Left Ventricular Outflow Tract Name Value Normal LVOT Doppler LVOT Peak Gradient 9 mmHg LVOT Mean Gradient 4 mmHg LVOT VTI 30.47 cm LVOT VTI/AV VTI Ratio 0.82 Mitral Valve
[2020-05-20 00:19] LABS: SARS-CoV-2 RNA PCR Positive
[2020-05-20 00:55] LABS: Hematocrit 25.6 % (37.0-47.0); Hemoglobin 8.8 g/dL (12.0-15.0); Mean Corpuscular HGB Conc 34.4 g/dl (32-36); Mean Corpuscular Volume 90.1 fl (80-100); Mean Platelet Volume 11.7 fl (7.4-10.4); Platelet Count Result 60 k/mm3 (150-375); Red Blood Count 2.84 M/mm3 (4.2-5.4); Red Cell Distribution Width 16.5 % (11.5-14.5); White Blood Count 2.1 K/mm3 (4.5-10.0)
[2020-05-20] MEDS: SODIUM CHLORIDE 0.9% IV 250 ML 30 ML IV CONT ×3 (00:56→10:52)
[2020-05-20 01:08] LABS: INR 1.6; Prothrombin Time 18.8 Seconds (11.1-14.7)
[2020-05-20 01:11] LABS: D Dimer 0.94 ug/mL (<0.48)
[2020-05-20 01:13] LABS: Anion Gap 16.1 mmol/L (7-16); Blood Urea Nitrogen 62 mg/dL (7-17); Calcium 6.4 mg/dL (8.4-10.2); Carbon Dioxide 15 mmol/L (22-30); Chloride 105 mmol/L (98-107); Estimated CRCL calculation 7 ml/min; Estimated Glomerular Filt Rate 5; Glucose 89 mg/dL (65-105); Magnesium 1.5 mg/dL (1.6-2.3); Phosphorus 4.9 mg/dL (2.5-4.5); Potassium 3.1 mmol/L (3.4-5.0); Sodium 133 mmol/L (137-145)
[2020-05-20 01:22] LABS: Fibrinogen 362 mg/dl (215-510)
[2020-05-20 01:24] LABS: Partial Thromboplastin Time > 200.0 SECONDS (22.3-36.8)
[2020-05-20 03:37] LABS: Alveolar/Arterial O2 Gradient 157.2 mmHg; Base Excess ABG -13.3 mEq/l (+/-2.0); Carboxyhemoglobin 0.3 % THb (0-2.0); Fractional Inspired Oxygen 40 %; HCO3 ABG 11.6 mEq/l (22.0-26.0); Methemoglobin ABG 0.4 %THb (0-1.5); Oxygen Saturation ABG 97.1 % (95.0-100.0); Oxyhemoglobin 95.9 % THb (90.0-100.0); PCO2 ABG 24.3 mmHg (35.0-45.0); PO2 ABG 100.1 mmHg (80.0-100.0); Reduced Hemoglobin 3.4 %THb (0-5.0); Total Hemoglobin 10.3 g/dL (12.0-18.0); pH ABG 7.297 (7.350-7.450)
[2020-05-20 03:38] LABS: Device VENTILATOR; Site Drawn RIGHT BRACHIAL
[2020-05-20 03:39] LABS: Arterial Blood Gas PEEP 5 cmH2O; Arterial Blood Gas Tidal Volume 350 ml; Arterial Blood Gas Vent Mode CMV; Arterial Blood Gas Ventilator rate 20 /MIN
[2020-05-20 05:35] LABS: Add Urine Microscopic? YES; Appearance Urine Cloudy (Clear); Bacteria Urine 1+ /hpf; Bilirubin Urine Negative (Negative); Blood Urine 1+ (Negative); Color Urine Yellow (Yellow); Glucose Urine UA 1+ mg/dL (Negative); Ketones Urine Negative (Negative); Leukocyte Esterase Ur Negative LEU/UL (Negative); Nitrate Urine Negative (Negative); Protein Urine 3+ mg/dL (Negative); Specific Grav Ur 1.019 (1.001-1.035); Squamous Epithelial Cell Urine Many /hpf (Few); Urobilinogen Urine Negative mg/dL (<2.0)
[2020-05-20 05:43] LABS: Amphetamine Screen Urine Negative (Negative); Barbiturate Screen Urine Negative (Negative); Benzodiazepines Screen Urine Negative (Negative); Cannabinoid Screen Urine Negative (Negative); Cocaine Screen Urine Negative (Negative); Methadone Screen Urine Negative (Negative); Opiate Screen Urine Negative (Negative); Phencyclidine Screen Urine Negative (Negative)
[2020-05-20 06:13] LABS: Hematocrit 21.4 % (37.0-47.0); Hemoglobin 7.2 g/dL (12.0-15.0); INR 1.5; Immature Granulocyte Absolute 0.15 K/mm3 (0.00-0.031); Immature Granulocyte Percent A 6.7 % (0-0.5); Immature Platelet Fraction Pct 2.5 % (0.9-11.2); Lymphocytes Absolute Auto 0.15 K/mm3 (0.9-3.2); Lymphocytes Percent Auto 6.7 % (18.3-44.2); Mean Corpuscular HGB Conc 33.6 g/dl (32-36); Mean Corpuscular Hemoglobin 30.5 pg (26-34); Mean Corpuscular Volume 90.7 fl (80-100); Monocytes Absolute Auto 0.1 K/mm3 (0.1-0.6); Monocytes Percent Auto 3.1 % (2.6-8.5); Neutrophils Absolute Auto 1.9 K/mm3 (1.3-6.7); Neutrophils Percent Auto 83.5 % (45.5-73.1); Platelet Count Result 55 k/mm3 (150-375); Prothrombin Time 17.4 Seconds (11.1-14.7); Red Blood Count 2.36 M/mm3 (4.2-5.4); Red Cell Distribution Width 16.5 % (11.5-14.5); White Blood Count 2.2 K/mm3 (4.5-10.0)
[2020-05-20 06:14] LABS: Partial Thromboplastin Time 53.6 SECONDS (22.3-36.8)
--- NOTE | 2020-05-20 06:21 | WPDCNINT ---
Assessment and Plan Assessment and plan (1) Acute respiratory failure: Qualifiers: Respiratory failure complication: unspecified whether with hypoxia or hypercapnia Qualified Code(s): J96.00 - Acute respiratory failure, unspecified whether with hypoxia or hypercapnia Code(s): J96.00 - Acute respiratory failure, unspecified whether with hypoxia or hypercapnia Status: Acute Assessment and Plan: patient with severe metabolic acidosis, impending respiratory failure with tachypnea, tachycardia, pneumonia secondary to COVID-19, possible heart failure, volume overload - patient is on CMV mode of ventilation, peep of 5, 40% FiO2 - ABGs and chest x-ray reviewed, ventilator adjusted - sedated with fentanyl and Versed infusion, maintain RASS of 0 to -2, daily sedation vacation - continue azithromycin and ceftriaxone (2) Shock: Code(s): R57.9 - Shock, unspecified Status: Acute Assessment and Plan: patient was initially in the state of shock bradycardic, likely related to severe metabolic acidosis, briefly requiring dopamine for blood pressure support and vasopressor support - once she received her dialysis, dopamine was turned off - currently maintaining adequate blood pressures and heart rate - blood and urine cultures have been obtained and pending - continue to maintain adequate blood pressures - antibiotics as above (3) COVID-19: Code(s): U07.1 - COVID-19 Status: Acute Assessment and Plan: patient positive for COVID-19, has not been feeling well for the last 10-14 days, - currently intubated, according to the literature patient may be outside the window for Remdesivir - infectious disease team has been consulted - continue dexamethasone - patient may benefit from convalescent plasma, will discuss with infectious disease (4) Acute kidney injury superimposed on chronic kidney disease: Code(s): N17.9 - Acute kidney failure, unspecified; N18.9 - Chronic kidney disease, unspecified Status: Acute Assessment and Plan: patient has a history of chronic kidney disease stage 4 and has been told that she may be requiring dialysis at some point - patient presented with nausea, vomiting, diarrhea with decreased p.o. intake - her creatinine on admission was 13.5 with severe metabolic acidosis with a pH of 7.059 and a bicarb of 5.8 - emergent Logan dialysis catheter was inserted and patient received her 1st dialysis on 05/19/2020 - appreciate nephrology following the patient, dialysis per Nephrology - renal ultrasound is pending (5) Pancytopenia: Code(s): D61.818 - Other pancytopenia Status: Acute Assessment and Plan: patient with pancytopenia - has a history of chronic - pancytopenia could be related to bone marrow issue secondary to uremia - Dr. Jarquin has been consulted - patient received 2 units of FFP since she has been having a lot of bleeding around the site of Logan catheter (6) Type 2 diabetes mellitus: Code(s): E11.9 - Type 2 diabetes mellitus without complications Status: Acute Assessment and Plan: patient with history of type 2 diabetes, continue sliding scale insulin Accu-Cheks - patient on steroids, will monitor blood sugars closely - hemoglobin A1c is 5.1 this admission (7) CHF (congestive heart failure): Qualifiers: Heart failure type: unspecified Heart failure chronicity: unspecified Qualified Code(s): I50.9 - Heart failure, unspecified Code(s): I50.9 - Heart failure, unspecified Status: Acute Assessment and Plan: patient with history of congestive heart failure, unknown if it is systolic or diastolic at this time - bilateral infiltrates seen on chest x-ray could be volume overload secondary to acute on chronic renal failure - echocardiogram has been ordered and pending (8) Pneumonia: Qualifiers: Pneumonia type: due to unspecified organism Laterality: bilate
[2020-05-20 06:24] LABS: Alanine Aminotransferase 12 U/L (4-35); Albumin Level 2.2 g/dL (3.5-5.1); Alkaline Phosphatase 57 U/L (38-126); Anion Gap 20.2 mmol/L (7-16); Aspartate Amino Transferase 32 U/L (14-36); Bilirubin,Total 0.6 mg/dL (0.2-1.3); Blood Urea Nitrogen 61 mg/dL (7-17); CRP 8.7 mg/dL (<1.0); Calcium 6.3 mg/dL (8.4-10.2); Carbon Dioxide 12 mmol/L (22-30); Chloride 106 mmol/L (98-107); Creatine Kinase 199 U/L (30-135); Estimated CRCL calculation 6 ml/min; Estimated Glomerular Filt Rate 5; Glucose 66 mg/dL (65-105); Lactate Dehydrogenase 930 U/L (313-618); Magnesium 1.5 mg/dL (1.6-2.3); Phosphorus 6.2 mg/dL (2.5-4.5); Potassium 3.2 mmol/L (3.4-5.0); Sodium 135 mmol/L (137-145)
[2020-05-20 06:51] LABS: Glucose Point of Care 214 (65-105)
[2020-05-20] MEDS: DEXTROSE 50% 25 GM/50 ML SYRINGE IV PUSH (06:54)
[2020-05-20 07:46] LABS: Creatinine Urine 105.8 mg/dL
[2020-05-20 07:50] LABS: Sodium Urine Random 46 meq/L
--- NOTE | 2020-05-20 07:53 | WPDANESPN ---
Anes - Prog Note Post-Op Date/Time: 05/20/20 07:53 Cardiovascular status: normal Respiratory status: other (intubated/vent) Airway patency: other Mental status: other (sedated) Post-Op hydration status: normal Vital Signs: Last Vital Signs Temp 36.6 C 05/20/20 05:40 Pulse 63 05/20/20 06:23 Resp 20 05/20/20 06:23 BP 122/51 L 05/20/20 05:40 Pulse Ox 100 05/20/20 05:40 I/O: Intake & Output 05/19/20 05/19/20 05/20/20 15:59 23:59 07:59 Intake Total 3000 400 326 Output Total 0 50 Balance 3000 400 276 Laboratory Tests 05/20/20 05:46 05/20/20 05:46 05/19/20 05/19/20 05/19/20 11:46 12:07 13:15 WBC 2.2 L RBC 2.27 L Hgb 6.6 L* Hct 20.7 L* MCV 91.2 MCH 29.1 MCHC 31.9 L RDW 16.8 H Plt Count 52 L MPV 13.2 H Immature Gran % (Auto) 0.5 Neut % (Auto) 85.7 H Lymph % (Auto) 10.1 L [place] % (Auto) 3.7 Eos % (Auto) 0.0 Baso % (Auto) 0.0 L Lymph # (Auto) 0.22 L [place] # (Auto) 0.1 Eos # (Auto) 0.0 Baso # (Auto) 0.0 Abs Immat Gran (auto) 0.01 Absolute Neuts (auto) 1.9 Absolute Nucleated RBC 0.0 Nucleated RBC % 0.0 % Immature Plt Fraction 3.7 ESR PT INR APTT Fibrinogen D-Dimer Puncture Site ABG pH ABG pCO2 ABG pO2 ABG PO2/FiO2 Ratio ABG HCO3 ABG O2 Saturation ABG O2 Content ABG Base Excess A-a Gradient Oxyhemoglobin Carboxyhemoglobin Methemoglobin Reduced Hemoglobin Total Hemoglobin O2 Delivery Device O2 Liters/Min Minute Volume Vent Rate Vent Mode FiO2 Tidal Volume PEEP Peak Inspir Pressure Pressure Support Sodium Potassium Chloride Carbon Dioxide Anion Gap BUN Creatinine Estim Creat Clear Calc Estimated GFR Glucose POC Capillary Glucose 100 Hemoglobin A1c Lactic Acid Calcium Phosphorus Magnesium Iron TIBC % Saturation Ferritin Total Bilirubin AST ALT Alkaline Phosphatase Lactate Dehydrogenase Total Creatine Kinase C-Reactive Protein NT-Pro-B Natriuret Pep Total Protein Albumin Vitamin B12 Folate TSH (Reflex) Free T4 Total T3 PTH Intact PTH Related Protein Random Cortisol Urine Color Urine Appearance Urine pH Ur Specific [place] Urine Protein Urine Glucose (UA) Urine Ketones Ur Blood (Man) Urine Nitrate Urine Bilirubin Urine Urobilinogen Leukocyte Esterase Rfl Urine RBC Urine WBC Ur Squamous Epith Cells Urine Bacteria Hyaline Casts Urine Eosinophils U Random Total Protein Ur Random Sodium Urine Creatinine Salicylates Urine Opiates Screen Urine Methadone Screen Acetaminophen Ur Barbiturates Screen Ur Phencyclidine Scrn Ur Amphetamine Screen U Benzodiazepines Scrn Urine Cocaine Screen U Cannabinoids Screen Serum Immunofixation BOBO Screen Complement C3 Complement C4 Tot Complement (CH50) [place]/Lambda Ratio Free [place] Light Chains Free Lambda Light Chain Hep Bs Antigen Hep Bs Antibody Hep B Core Total Ab Hepatitis C Ab Screen SARS-CoV-2 RNA (RT-PCR) Positive A Blood Type Antibody Screen Crossmatch 05/19/20 05/19/20 05/19/20 13:15 13:15 13:15 WBC RBC Hgb Hct MCV MCH MCHC RDW Plt Count MPV Immature Gran % (Auto) Neut % (Auto) Lymph % (Auto) [place] % (Auto) Eos % (Auto) Baso % (Auto) Lymph # (Auto) [place] # (Auto) Eos # (Auto) Baso # (Auto) Abs Immat Gran (auto) Absolute Neuts (auto) Absolute Nucleated RBC Nucleated RBC % % Immature Plt Fraction ESR PT 18.0 H INR 1.5 APTT 55.3 H Fibrinogen D-Dimer Puncture Site ABG pH ABG pCO2 ABG pO2 ABG PO2/FiO2 Ratio ABG HCO3 ABG O2 Saturation
[2020-05-20 08:24] LABS: Total Protein Urine Random > 600 mg/dL
[2020-05-20] MEDS: DESMOPRESSIN ACETATE INJ 20 MCG in SODIUM CHLORIDE 0.9% IV 50 ML 100 MCG IVPB (09:48)
[2020-05-20] MEDS: FAMOTIDINE 20 MG/2 ML VIAL IV PUSH (10:52)
[2020-05-20 11:46] LABS: Glucose Point of Care 118 (65-105)
--- NOTE | 2020-05-20 12:23 | PCDIET ---
Nutrition Assessment complete. See Nutritional Comprehensive Assessment. Tube feedings recommendations: Nepro at 35 ml/hr goal rate which will provide 1386 kcals and [address] will continue to monitor every 3 days.
[2020-05-20 13:45] LABS: Mean Platelet Volume 12.1 fl (7.4-10.4); Platelet Count Result 51 k/mm3 (150-375)
[2020-05-20 13:56] LABS: INR 1.6; Prothrombin Time 18.2 Seconds (11.1-14.7)
[2020-05-20 13:59] LABS: Magnesium 1.6 mg/dL (1.6-2.3)
[2020-05-20 14:01] LABS: D Dimer 0.76 ug/mL (<0.48); Fibrinogen 257 mg/dl (215-510)
--- NOTE | 2020-05-20 14:48 | WPDINFPN2 ---
Progress Note: A&P Assessment and Plan (1) COVID-19: Code(s): U07.1 - COVID-19 Status: Acute Assessment and Plan: 1. Hypoxemia and lung infiltrates due to CoVid viral pneumonia 2. CRI with worsening 3. DM REC Dexamethasone # 2 / 10. Ok convalescent plasma. There is no remdesivir safety nor dosing data for CrCl <50 cc/min, so it is contra-indicated. Stop antibacterials. Subjective Date/time seen: 05/20/20 14:48 Objective Data Vital Signs Vital Signs: Vital Signs - 24 hr 05/19/20 15:10 05/19/20 16:00 05/19/20 16:15 Temperature Pulse Rate 49 L 65 56 L Respiratory Rate 17 16 15 Blood Pressure 135/55 L 84/44 L 72/47 L Pulse Oximetry 100 99 100 05/19/20 17:30 05/19/20 17:45 05/19/20 18:00 Temperature Pulse Rate 49 L 50 L 53 L Respiratory Rate 16 14 14 Blood Pressure 110/61 101/61 104/62 Pulse Oximetry 100 100 100 05/19/20 18:15 05/19/20 18:30 05/19/20 19:00 Temperature Pulse Rate 50 L 50 L 53 L Respiratory Rate 14 18 15 Blood Pressure 104/49 L 141/52 H 97/62 L Pulse Oximetry 100 100 100 05/19/20 19:30 05/19/20 19:35 05/19/20 20:00 Temperature 32.9 C L 32.9 C L Pulse Rate 53 L 55 L Respiratory Rate 14 16 Blood Pressure 94/47 L 98/58 L Pulse Oximetry 100 100 100 05/19/20 20:25 05/19/20 20:40 05/19/20 21:30 Temperature 32.9 C L Pulse Rate 65 61 65 Respiratory Rate 12 20 Blood Pressure 105/53 L Pulse Oximetry 99 100 05/19/20 21:39 05/19/20 21:45 05/19/20 22:00 Temperature 33.2 C L Pulse Rate 66 66 72 Respiratory Rate 18 Blood Pressure 105/53 L 118/62 124/63 Pulse Oximetry 100 05/19/20 22:13 05/19/20 22:17 05/19/20 22:30 Temperature 33.5 C L Pulse Rate 74 73 72 Respiratory Rate 15 Blood Pressure 124/63 114/53 L 140/70 Pulse Oximetry 100 05/19/20 22:32 05/19/20 22:45 05/19/20 23:00 Temperature 34.1 C L 34.2 C L Pulse Rate 72 69 71 Respiratory Rate 15 21 H Blood Pressure 140/72 139/67 135/71 Pulse Oximetry 100 100 05/19/20 23:15 05/19/20 23:30 05/19/20 23:41 Temperature Pulse Rate 71 71 72 Respiratory Rate Blood Pressure 125/66 110/66 117/68 Pulse Oximetry 05/19/20 23:45 05/20/20 00:00 05/20/20 00:02 Temperature 34.9 C L 35.1 C L Pulse Rate 73 72 71 Respiratory Rate 16 15 Blood Pressure 153/70 H 172/69 H Pulse Oximetry 100 05/20/20 00:41 05/20/20 00:55 05/20/20 02:00 Temperature 36.1 C L Pulse Rate 59 L 61 60 Respiratory Rate 11 L 17 Blood Pressure 107/54 L Pulse Oximetry 100 100 05/20/20 03:24 05/20/20 03:40 05/20/20 04:00 Temperature 36.8 C 36.8 C 36.8 C Pulse Rate 62 66 61 Respiratory Rate 14 16 16 Blood Pressure 104/50 L 113/53 L 117/54 L Pulse Oximetry 100 100 100 05/20/20 04:07 05/20/20 04:40 05/20/20 04:41 Temperature 36.8 C Pulse Rate 60 61 62 Respiratory Rate 20 12 Blood Pressure 122/52 L Pulse Oximetry 100 100 05/20/20 05:15 05/20/20 05:40 05/20/20 06:23 Temperature 36.6 C 36.6 C Pulse Rate 61 63 63 Respiratory Rate 20 16 20 Blood Pressure 120/57 L 122/51 L Pulse Oximetry 100 100 05/20/20 08:00 05/20/20 08:20 05/20/20 09:55 Temperature 36.9 C Pulse Rate 62 62 64 Respiratory Rate 20 Blood Pressure 125/57 L Pulse Oximetry 100 100 05/20/20 10:00 05/20/20 10:54 05/20/20 11:08 Temperature 36.9 C 36.9 C Pulse Rate 62 64 63 Respiratory Rate 21 H 20 Blood Pressure 114/54 L 107/52 L Pulse Oximetry 100 100 100 05/20/20 11:11 05/20/20 11:53 05/20/20 12:00 Temperature 36.9 C 36.8 C 36.8 C Pulse Rate 64 66 67 Respiratory Rate 20 16 16 Blood Pressure 112/53 L 109/49 L 122/51 L Pulse Oximetry 100 100 100 05/20/20 12:10 05/20/20 12:25 05/20/20 13:23 Temperature 36.8 C 36.9 C 36.8 C Pulse Rate 67 66 67 Respiratory Rate 16 20 20 Blood Pressure 122/51 L 117/49 L 121/55 L Pulse Oximetry 100 100 100 05/20/20 13:40 05/20/20 14:00 Temperature 36.8 C Pulse Rate 65 64 Respiratory Rate 20 Blood Pressure 108/57 L
--- NOTE | 2020-05-20 16:01 | PM.PNNEP ---
Progress Note: A&P Assessment and Plan (1) Ojakz-sw-avuiulu renal failure: Code(s): N17.9 - Acute kidney failure, unspecified; N18.9 - Chronic kidney disease, unspecified Status: Acute Assessment and Plan: the patient probably has chronic kidney disease according to her history. renal ultrasound shows increased parenchymal echogenicity consistent with chronic kidney disease. Urine electrolytes are non pre renal. Urine protein shows at least 6 g of protein per 24 hours. Sounds like she has diabetic nephropathy with nephrotic syndrome. Serology and electrophoresis are pending (2) Hypotension: Code(s): I95.9 - Hypotension, unspecified Status: Acute Assessment and Plan: The patient's blood pressure is better. She is on dopamine. COVID is positive. (3) Metabolic acidosis: Code(s): E87.2 - Acidosis Status: Acute Assessment and Plan: The patient has metabolic acidosis. Her anion gap is 17. Lactic acid is normal. Will get another Dialysis treatment today. (4) Erythropoietin deficiency anemia: Code(s): D63.1 - Anemia in chronic kidney disease Status: Acute Assessment and Plan: The patient's hemoglobin is low. This may be from her chronic kidney disease. She could have some other cause however including GI bleeding, hemolysis etc. Will check stool guaiacs and LDH. (5) Hypocalcemia: Code(s): E83.51 - Hypocalcemia Status: Acute Assessment and Plan: Her calcium levels very low. This is not uncommon in renal failure. will use a 3 calcium bath again today. (6) Diabetes: Code(s): E11.9 - Type 2 diabetes mellitus without complications Status: Acute Assessment and Plan: She is going to have Accu-Cheks and possibly sliding-scale insulin Subjective Date/time seen: 05/20/20 16:01 Interval history: the patient is sedated. She is on the ventilator. Review of Systems Review of Systems: ROS unobtainable: Yes unobtainable due to medical condition Exam Narrative: Exam Narrative: WDWN in NAD On the ventilator in the ICU on sedatives. skin no rash head ncat lungs Coarse bilaterally cor reg no rub abd BS+ nontender and soft ext no edema. Objective Data Vital Signs Vital Signs: Vital Signs - 24 hr 05/19/20 16:15 05/19/20 17:30 05/19/20 17:45 Temperature Pulse Rate 56 L 49 L 50 L Respiratory Rate 15 16 14 Blood Pressure 72/47 L 110/61 101/61 Pulse Oximetry 100 100 100 05/19/20 18:00 05/19/20 18:15 05/19/20 18:30 Temperature Pulse Rate 53 L 50 L 50 L Respiratory Rate 14 14 18 Blood Pressure 104/62 104/49 L 141/52 H Pulse Oximetry 100 100 100 05/19/20 19:00 05/19/20 19:30 05/19/20 19:35 Temperature 32.9 C L Pulse Rate 53 L 53 L Respiratory Rate 15 14 Blood Pressure 97/62 L 94/47 L Pulse Oximetry 100 100 100 05/19/20 20:00 05/19/20 20:25 05/19/20 20:40 Temperature 32.9 C L Pulse Rate 55 L 65 61 Respiratory Rate 16 12 Blood Pressure 98/58 L Pulse Oximetry 100 99 05/19/20 21:30 05/19/20 21:39 05/19/20 21:45 Temperature 32.9 C L Pulse Rate 65 66 66 Respiratory Rate 20 Blood Pressure 105/53 L 105/53 L 118/62 Pulse Oximetry 100 05/19/20 22:00 05/19/20 22:13 05/19/20 22:17 Temperature 33.2 C L 33.5 C L Pulse Rate 72 74 73 Respiratory Rate 18 15 Blood Pressure 124/63 124/63 114/53 L Pulse Oximetry 100 100 05/19/20 22:30 05/19/20 22:32 05/19/20 22:45 Temperature 34.1 C L 34.2 C L Pulse Rate 72 72 69 Respiratory Rate 15 21 H Blood Pressure 140/70 140/72 139/67 Pulse Oximetry 100 100 05/19/20 23:00 05/19/20 23:15 05/19/20 23:30 Temperature Pulse Rate 71 71 71 Respiratory Rate Blood Pressure 135/71 125/66 110/66 Pulse Oximetry 05/19/20 23:41 05/19/20 23:45 05/20/20 00:00 Temperature 34.9 C L Pulse Rate 72 73 72 Respiratory Rate 16 Blood Pr
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
[2020-05-20] MEDS: SODIUM CHLORIDE 0.9% IV 250 ML 30 ML (17:45)
[2020-05-20 17:49] LABS: Glucose Point of Care 164 (65-105)
--- NOTE | 2020-05-20 19:09 | PM.IMPN ---
Progress Note: A&P Assessment and Plan (1) Acute respiratory failure: Qualifiers: Respiratory failure complication: unspecified whether with hypoxia or hypercapnia Qualified Code(s): J96.00 - Acute respiratory failure, unspecified whether with hypoxia or hypercapnia Code(s): J96.00 - Acute respiratory failure, unspecified whether with hypoxia or hypercapnia Status: Acute Assessment and Plan: patient intubated and sedated. Stable on mechanical ventilation. Related to COVID pneumonia. Chest x-ray reviewed showing extensive bilateral pulmonary infiltrates. Probably related to COVID but cannot exclude pulmonary edema given her acute kidney injury. Vent management per contracts manager. (2) Septic shock: Code(s): A41.9 - Sepsis, unspecified organism; R65.21 - Severe sepsis with septic shock Status: Acute Assessment and Plan: Patient with hypotension secondary to sepsis and hypovolemia. Patient hypothermic on admission with bradycardia and leukopenia. Patient required dopamine overnight but this was able to be weaned off in the educational technology coordinator hours. Blood pressure has since remained stable. Blood products have helped improved perfusion. Concern patient may have DIC as well. Continue to monitor. appreciate hematology input. (3) COVID-19: Code(s): U07.1 - COVID-19 Status: Acute Assessment and Plan: Chest x-ray showing bilateral pulmonary infiltrates. COVID positive. CRP 8.7 today. LDH better today at 930. Dexamethasone started. Remdesivir held due to her renal failure. Appreciate ID input. (4) Acute kidney injury superimposed on chronic kidney disease: Code(s): N17.9 - Acute kidney failure, unspecified; N18.9 - Chronic kidney disease, unspecified Status: Acute Assessment and Plan: Patient has CKD stage 4. Creatinine 13.5 on admission. Worsening renal function related to hypotension from hypovolemia and sepsis from COVID. Logan catheter placed and hemodialysis started. Appreciate Nephrology input. (5) Chronic anemia: Code(s): D64.9 - Anemia, unspecified Status: Acute Assessment and Plan: Patient with chronic anemia with history of multiple blood transfusions. EGD and colonoscopy approximately 7 years ago reportedly showed no significant findings. suspect acute anemia possibly from GI blood loss given the blackish mat'l from OG. Hgb 6.6 and patietn transfused. Hgb 7.2 this morning. Will repeat HH to ensure stability. Change to Protonix. (6) Metabolic acidosis: Code(s): E87.2 - Acidosis Status: Acute Assessment and Plan: Secondary to renal failure. No evidence of DKA and lactic acid level normal. She was treated with sodium bicarbonate. Further correction with HD. (7) Pancytopenia: Code(s): D61.818 - Other pancytopenia Status: Acute Assessment and Plan: Etiology not clear at this point in time but could be acute vs chronic. Viral illnesses can cause pancytopenia. Hematology following and appreciate their input (8) Type 2 diabetes mellitus: Code(s): E11.9 - Type 2 diabetes mellitus without complications Status: Acute Assessment and Plan: A1c 5.1% but possibly falsely low due to the anemia. Diabetes historically has been poorly controlled but family state improved glycemic control more recently. Continue sliding scale insulin, Accu-Cheks, and hypoglycemic protocol. (9) Essential hypertension: Code(s): I10 - Essential (primary) hypertension Status: Acute Assessment a
--- NOTE | 2020-05-20 19:36 | CONS_ITS ---
DATE OF CONSULTATION: 05/20/2020 REASON FOR CONSULTATION: Dumont virus infection. HISTORY OF PRESENT ILLNESS: The patient is a 44-year-old female who cannot provide any history currently due to intubated and sedated status. Chart indicates a long-standing history of diabetes mellitus, apparently with at least retinopathy and perhaps with nephropathy as well. She was brought to the hospital yesterday with 2 weeks of nausea, vomiting, weakness, orthostatic dizziness, fatigue, one day of diarrhea and on the day of admission, appearance of shortness of breath and weakness by the patient's daughter. Hypoglycemia was found in the emergency room along with hypotension. Headache was also noted and there has been no exposure to dumont virus that we are aware of. The patient had right femoral triple-lumen catheter and a right IJ dialysis catheter with Skelton endotracheal tube or orogastric tube. She remains sedated. ALLERGIES: NONE KNOWN. MEDICATIONS: Home medication list reviewed. She is on dexamethasone day 2. HABITS: No tobacco. No alcohol. No illicit drugs. PAST MEDICAL HISTORY: Chronic anemia, stage IV renal insufficiency, hypertension, hyperlipidemia, . She also has a low pelvic longitudinal scar, which appears surgical in nature that does not suggest standard . FAMILY HISTORY: Diabetes, hypertension. SOCIAL HISTORY: Previously lived in [place], [place], is however [place]. She has 2 children. Lives with her daughter. Disabled. REVIEW OF SYSTEMS: Not obtainable from the patient due to sedation and intubated status. 14-point review otherwise as per record and reviewed. PHYSICAL EXAMINATION: GENERAL: This is a middle-aged female, who appears older than her actual age. No acute distress. VITAL SIGNS: Normal temperature on arrival, last evening hypothermic down to 32.9, which is now normalized and she was not on a hypothermia protocol. 108/57, 64, 20, 100% saturation on 30% FiO2. SKIN: No rashes, warm or dry. No ulcers nor vasculitis lesions. NODES: No cervical adenopathy. EENT: Conjunctivae are normal. Pupils equal, round, reactive to light. She is orally intubated, which compromises exam, but inspection otherwise normal. NECK: No apparent meningismus. No masses. Trachea is in the midline. LUNGS: Diminished breath sounds, otherwise clear to auscultation and percussion. CHEST: Equal expansion. Normal AP diameter. Dialysis catheters above without hematoma. CARDIAC: Regular rate and rhythm. No murmur, gallop, or rub. Dorsalis pedis and radial pulses 2+ and equal. ABDOMEN: Nontender, nondistended, scaphoid. No masses. No organomegaly and a longitudinal scar midline pelvis. EXTREMITIES: No clubbing, cyanosis, edema. LABORATORY DATA: Her COVID assay was reactive. White count 2.2, hemoglobin 7.2, platelets are 55,000. Prothrombin time prolonged. D-dimer elevated. Blood gases 7.30, 24, 100, 12. AA gradient 157, down from 187. She has mild hyponatremia, hypokalemia, CO2 is 12 on the chemistry panel, glucose 214, calcium 6.3, but her albumin is only 2.2. LDH and CPK both high. A CRP 8.7. Urinalysis multiple abnormalities reviewed, not particularly suggestive of infection. Drug screen presumably done for decreased level of consciousness was nonreactive. Hepatitis panel, preliminary nonreactive. RADIOLOGY: I personally reviewed her chest x-ray. She has persistent infiltrates in the inferior mid lung walker bilaterally, more dense on the right. No effusions. Normal heart size. Also reviewed the radiologist's interpretation. Ultrasound of the kidneys with medical renal disease and bladder wall thickening. ASSESSMENT: 1. Abnormal urinalysis, suspect asymptomatic collection and no UTI. 2. Lung infiltrates, dysp
[2020-05-20 20:39] LABS: pH Gastric Fluid 3 (1-8)
[2020-05-20 20:40] LABS: Gastric Negative Control Negative; Gastric Positive Control Positive; Occult Blood Gastric Fluid Negative
[2020-05-20] MEDS: EPOETIN ALFA-EPBX 10,000 UNITS/ML VIAL 10000 UNITS IV PUSH (20:40)
[2020-05-20 20:42] LABS: Hematocrit 18.5 % (37.0-47.0)
[2020-05-20] MEDS: PANTOPRAZOLE SODIUM IV 40 MG VIAL IV PUSH (21:39)
[2020-05-20 23:56] LABS: Glucose Point of Care 126 (65-105)
[2020-05-21] VITALS (38 sets, daily range): BP systolic 140–198; BP diastolic 62–85; PULSE 65–74; RESP 17–23; TEMP 36.6–37.3; O2SAT 98–100
[2020-05-21] MEDS: hydrALAZINE HCL 20 MG/ML VIAL 10 MG IV PUSH ×4 (01:27→18:16)
[2020-05-21 05:16] LABS: Alveolar/Arterial O2 Gradient 49.9 mmHg; Base Excess ABG -4.4 mEq/l (+/-2.0); Carboxyhemoglobin 0.3 % THb (0-2.0); Fractional Inspired Oxygen 30 %; HCO3 ABG 18.9 mEq/l (22.0-26.0); Methemoglobin ABG 0.1 %THb (0-1.5); Oxygen Content ABG 13.1 %vol (16.0-22.0); Oxygen Saturation ABG 98.8 % (95.0-100.0); Oxyhemoglobin 97.4 % THb (90.0-100.0); PCO2 ABG 28.4 mmHg (35.0-45.0); PO2 ABG 130.6 mmHg (80.0-100.0); PO2 FiO2 Ratio Arterial Blood 4.35 %; Reduced Hemoglobin 2.2 %THb (0-5.0); Total Hemoglobin 9.4 g/dL (12.0-18.0); pH ABG 7.441 (7.350-7.450)
[2020-05-21 05:17] LABS: Arterial Blood Gas PEEP 5 cmH2O; Arterial Blood Gas Tidal Volume 350 ml; Arterial Blood Gas Vent Mode CMV; Arterial Blood Gas Ventilator rate 20 /MIN; Device VENTILATOR; Modified Allen's Test Pass; Site Drawn LEFT RADIAL
[2020-05-21 06:38] LABS: Hematocrit 23.6 % (37.0-47.0); Hemoglobin 8.3 g/dL (12.0-15.0); Immature Granulocyte Absolute 0.37 K/mm3 (0.00-0.031); Immature Granulocyte Percent A 9.5 % (0-0.5); Immature Platelet Fraction Pct 2.8 % (0.9-11.2); Lymphocytes Absolute Auto 0.12 K/mm3 (0.9-3.2); Lymphocytes Percent Auto 3.1 % (18.3-44.2); Mean Corpuscular HGB Conc 35.2 g/dl (32-36); Mean Corpuscular Hemoglobin 31.3 pg (26-34); Mean Corpuscular Volume 89.1 fl (80-100); Mean Platelet Volume 11.7 fl (7.4-10.4); Monocytes Absolute Auto 0.1 K/mm3 (0.1-0.6); Monocytes Percent Auto 2.6 % (2.6-8.5); Neutrophils Absolute Auto 3.3 K/mm3 (1.3-6.7); Neutrophils Percent Auto 84.8 % (45.5-73.1); Nucleated Red Blood Cells Perc 0.5 % (0.0-0.2); Platelet Count Result 60 k/mm3 (150-375); Red Blood Count 2.65 M/mm3 (4.2-5.4); Red Cell Distribution Width 15.6 % (11.5-14.5); White Blood Count 3.9 K/mm3 (4.5-10.0)
[2020-05-21 06:43] LABS: Lactic Acid 0.9 mmol/L (0.7-2.1)
[2020-05-21 06:54] LABS: Alanine Aminotransferase 15 U/L (4-35); Albumin Level 2.5 g/dL (3.5-5.1); Alkaline Phosphatase 62 U/L (38-126); Anion Gap 15 mmol/L (8-16); Aspartate Amino Transferase 36 U/L (14-36); Bilirubin,Total 0.9 mg/dL (0.2-1.3); Blood Urea Nitrogen 37 mg/dL (7-17); Carbon Dioxide 21 mmol/L (22-30); Chloride 97 mmol/L (98-107); Estimated CRCL calculation 10 ml/min; Estimated Glomerular Filt Rate 8; Glucose 153 mg/dL (65-105); Magnesium 1.7 mg/dL (1.6-2.3); Phosphorus 5.1 mg/dL (2.5-4.5); Potassium 3.2 mmol/L (3.4-5.0); Sodium 133 mmol/L (137-145)
[2020-05-21 07:07] LABS: INR 1.3; Prothrombin Time 15.4 Seconds (11.1-14.7)
[2020-05-21] MEDS: PANTOPRAZOLE SODIUM IV 40 MG VIAL IV PUSH ×2 (08:42→20:57)
--- NOTE | 2020-05-21 09:38 | WPDINTPN ---
Progress Note: A&P Assessment and Plan (1) Acute respiratory failure: Qualifiers: Respiratory failure complication: unspecified whether with hypoxia or hypercapnia Qualified Code(s): J96.00 - Acute respiratory failure, unspecified whether with hypoxia or hypercapnia Code(s): J96.00 - Acute respiratory failure, unspecified whether with hypoxia or hypercapnia Status: Acute Assessment and Plan: patient with severe metabolic acidosis, impending respiratory failure with tachypnea, tachycardia, pneumonia secondary to COVID-19, possible heart failure, volume overload - patient is on CMV mode of ventilation, peep of 5, 40% FiO2 - ABGs and chest x-ray reviewed, ventilator adjusted will increase PEEP to 8 and FiO2 30% - sedated with fentanyl and Versed infusion, maintain RASS of 0 to -2, daily sedation vacation (2) Shock: Code(s): R57.9 - Shock, unspecified Status: Acute Assessment and Plan: patient was initially in the state of shock bradycardic, likely related to severe metabolic acidosis, briefly requiring dopamine for blood pressure support and vasopressor support - once she received her dialysis, dopamine was turned off - currently maintaining adequate blood pressures and heart rate - blood and urine cultures are negative - continue to maintain adequate blood pressures - ceftriaxone and azithromycin was discontinued by Infectious Disease - bilateral lower extremity venous Dopplers 05/20/2020 was negative for DVT bilaterally (3) COVID-19: Code(s): U07.1 - COVID-19 Status: Acute Assessment and Plan: patient positive for COVID-19, has not been feeling well for the last 10-14 days, - currently intubated, according to the literature patient may be outside the window for Remdesivir - appreciate infectious disease evaluation recommendation. - continue dexamethasone #3/10 - Patient did receive a unit of convalescent plasma on 05/20/2020 - continue droplet, airborne and contact isolation/precautions - will trend inflammatory markers (4) Acute kidney injury superimposed on chronic kidney disease: Code(s): N17.9 - Acute kidney failure, unspecified; N18.9 - Chronic kidney disease, unspecified Status: Acute Assessment and Plan: patient has a history of chronic kidney disease stage 4 and had been told that she may be requiring dialysis at some point - patient presented with nausea, vomiting, diarrhea with decreased p.o. intake - her creatinine on admission was 13.5 with severe metabolic acidosis with a pH of 7.059 and a bicarb of 5.8 - emergent Logan dialysis catheter was inserted in the right subclavian vein and patient received her 1st dialysis on 05/19/2020 - appreciate nephrology following the patient, dialysis per Nephrology - renal ultrasound 05/20/2020 showing medical renal disease (5) Pancytopenia: Code(s): D61.818 - Other pancytopenia Status: Acute Assessment and Plan: patient with pancytopenia - has a history of chronic anemia - pancytopenia could be related to bone marrow issue secondary to uremia, DIC - appreciates the Hematology/Oncology evaluation recommendations. - Patient received a total of 2 units of FFP and 2 units of packed RBCs since admission along with 1 unit of convalescent plasma for COVID-19 - patient to receive Epogen and Venofer - [id number] has been ordered and pending (6) Type 2 diabetes mellitus: Code(s): E11.9 - Type 2 diabetes mellitus without complications Status: Acute Assessment and Plan: patient with history of type 2 diabetes, continue sliding scale insulin Accu-Cheks - patient on steroids, will monitor blood sugars closely - hemoglobin A1c is 5.1 this admission (7) CHF (congestive heart failure): Qualifiers: Heart failure chronicity: unspecified Heart failure type: unspecified Qualified Code(s): I50.9 - Heart failure, unspecified Code(s): I50.9 - Heart fail
--- NOTE | 2020-05-21 10:18 | PM.IMPN ---
Progress Note: A&P Assessment and Plan (1) Acute respiratory failure: Qualifiers: Respiratory failure complication: unspecified whether with hypoxia or hypercapnia Qualified Code(s): J96.00 - Acute respiratory failure, unspecified whether with hypoxia or hypercapnia Code(s): J96.00 - Acute respiratory failure, unspecified whether with hypoxia or hypercapnia Status: Acute Assessment and Plan: Patient intubated and sedated. Stable on mechanical ventilation. Related to COVID pneumonia. Chest x-ray reviewed today showing extensive bilateral pulmonary infiltrates related to COVID but cannot exclude pulmonary edema given her acute kidney injury. On HD but still with positive fluid balance. 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 (2) Septic shock: Code(s): A41.9 - Sepsis, unspecified organism; R65.21 - Severe sepsis with septic shock Status: Acute Assessment and Plan: Patient with hypotension secondary to sepsis and hypovolemia. Patient hypothermic on admission with bradycardia and leukopenia. Patient required dopamine briefly but this was able to be weaned off in the funeral limousine driver hours on 05/20/20. Blood pressure has since remained stable and actually now elevated. Blood products have helped improved perfusion. Concern patient may have DIC as well. Continue to monitor. appreciate hematology input. (3) COVID-19: Code(s): U07.1 - COVID-19 Status: Acute Assessment and Plan: Chest x-ray reviewed today showing persistent bilateral pulmonary infiltrates. COVID positive. CRP 8.7 yesterday. Dexamethasone started. Remdesivir held due to her renal failure. Appreciate ID input. (4) Acute kidney injury superimposed on chronic kidney disease: Code(s): N17.9 - Acute kidney failure, unspecified; N18.9 - Chronic kidney disease, unspecified Status: Acute Assessment and Plan: Patient has CKD stage 4. Creatinine 13.5 on admission. Worsening renal function related to hypotension from hypovolemia and sepsis from COVID. Logan catheter placed and hemodialysis started. Appreciate Nephrology input. (5) Chronic anemia: Code(s): D64.9 - Anemia, unspecified Status: Acute Assessment and Plan: Patient with chronic anemia with history of multiple blood transfusions. EGD and colonoscopy approximately 7 years ago reportedly showed no significant findings. Suspect acute anemia from unclear etiology. Consider hemolysis. LDH 956. Hemoccult negative from NG output. Patient transfused again last night. Hgb 8.3 this morning. Continue serial HH. (6) Metabolic acidosis: Code(s): E87.2 - Acidosis Status: Acute Assessment and Plan: Secondary to renal failure. No evidence of DKA and lactic acid level normal. She was treated with sodium bicarbonate. Further correction with HD. (7) Pancytopenia: Code(s): D61.818 - Other pancytopenia Status: Acute Assessment and Plan: Etiology not clear at this point in time but could be acute vs chronic. Viral illnesses can cause pancytopenia. Hematology following and appreciate their input (8) Type 2 diabetes mellitus: Code(s): E11.9 - Type 2 diabetes mellitus without complications Status: Acute Assessment and Plan: A1c 5.1% but possibly falsely low due to the anemia. Diabetes historically has been poorly controlled but family state improved glycemic control more recently. The patient's blood glucose was reviewed on 05/21/20. Glucose remains well controlled. Continue AccuCheks covering with sliding scale. Hypoglycemia protocol available as needed.
--- NOTE | 2020-05-21 11:14 | P.PNNP_ITS ---
Progress Note: A&P Assessment and Plan (1) Ikwtt-of-sdzbhvb renal failure: Code(s): N17.9 - Acute kidney failure, unspecified; N18.9 - Chronic kidney disease, unspecified Status: Acute Assessment and Plan: * apparently had advanced chronic kidney disease at baseline - renal ultrasound with increased parenchymal echogenicity consistent with chronic kidney disease - nephrotic range proteinuria/nephrotic syndrome seemes apparent - likely has diabetic nephropathy * follow-up on pending testing (SPE/UPE...etc.) * HD day before yesterday, yesterday, and plan HD today * follow electrolytes, volume status, and clearance * given history and evidence to date, patient may now be dialysis dependent... (2) COVID-19: Code(s): U07.1 - COVID-19 Status: Acute Assessment and Plan: * tested positive * had not been feeling well 2 weeks prior to admission * apparently not a candidate for Remdesivir * Infectious Disease following * getting 10 day course of dexamethasone * s/p a unit of convalescent plasma (on 05/20/2020) * remains of droplet, airborne and contact isolation/precautions * trend inflammatory markers (3) Acute respiratory failure: Qualifiers: Respiratory failure complication: unspecified whether with hypoxia or hypercapnia Qualified Code(s): J96.00 - Acute respiratory failure, unspecified whether with hypoxia or hypercapnia Code(s): J96.00 - Acute respiratory failure, unspecified whether with hypoxia or hypercapnia Status: Acute Assessment and Plan: * due acute illness * intubated and on mechanical ventilation * wean as tolerated (4) Hypotension: Code(s): I95.9 - Hypotension, unspecified Status: Acute Assessment and Plan: * some component of shock on admission * briefly on dopamine which has since been weaned off * follow trend of hemodynamics (5) Metabolic acidosis: Code(s): E87.2 - Acidosis Status: Acute Assessment and Plan: * quite severe on admission * corrected with dialytic intervention * follow trend (6) Anemia: Code(s): D64.9 - Anemia, unspecified Status: Acute Assessment and Plan: * somewhat of a chronic issues by history * has required multiple PRBC transfusion in the past * anemia studies suggest signifcant iron deficiency * suspect ALBERTINA, CKD, and acute illness playing a role * pancytopenia contributing as well * getting IV iron * Epogen with HD * follow H/H (7) Hypocalcemia: Code(s): E83.51 - Hypocalcemia Status: Acute Assessment and Plan: * presumably due to renal failure * attempting correct with dialysis (8) Diabetes: Code(s): E11.9 - Type 2 diabetes mellitus without complications Status: Acute Assessment and Plan: * follow accuchecks * on SSI Discussed case with Dr. Patel. Will continue to follow. Subjective Date/time seen: 05/21/20 11:14 Tolerated dialysis yesterday evening without any issues or problems; remains intubated and sedated at this time; no apparent distress noted; plan for another dialysis treatment/session later today Exam Narrative: Exam Narrative: General: WD/WN female intubated/sedated Heart: normal S1 and S2; no rub Lungs: scatttered crackles/rhonchi and diminished throughout Abdomen: soft, nontender, nondistended, positive bowel sounds Extremities: no cyanosis or clubbing; 1+ edema Skin: warm and dry Objecti
--- NOTE | 2020-05-21 11:14 | PM.PNNEP ---
Progress Note: A&P Assessment and Plan (1) [id number]-vmijlum renal failure: Code(s): N17.9 - Acute kidney failure, unspecified; N18.9 - Chronic kidney disease, unspecified Status: Acute Assessment and Plan: apparently had advanced chronic kidney disease at baseline - renal ultrasound with increased parenchymal echogenicity consistent with chronic kidney disease - nephrotic range proteinuria/nephrotic syndrome seemes apparent - likely has diabetic nephropathy follow-up on pending testing (SPE/UPE...etc.) HD day before yesterday, yesterday, and plan HD today follow electrolytes, volume status, and clearance given history and evidence to date, patient may now be dialysis dependent... (2) COVID-19: Code(s): U07.1 - COVID-19 Status: Acute Assessment and Plan: tested positive had not been feeling well 2 weeks prior to admission apparently not a candidate for Remdesivir Infectious Disease following getting 10 day course of dexamethasone s/p a unit of convalescent plasma (on 05/20/2020) remains of droplet, airborne and contact isolation/precautions trend inflammatory markers (3) Acute respiratory failure: Qualifiers: Respiratory failure complication: unspecified whether with hypoxia or hypercapnia Qualified Code(s): J96.00 - Acute respiratory failure, unspecified whether with hypoxia or hypercapnia Code(s): J96.00 - Acute respiratory failure, unspecified whether with hypoxia or hypercapnia Status: Acute Assessment and Plan: due acute illness intubated and on mechanical ventilation wean as tolerated (4) Hypotension: Code(s): I95.9 - Hypotension, unspecified Status: Acute Assessment and Plan: some component of shock on admission briefly on dopamine which has since been weaned off follow trend of hemodynamics (5) Metabolic acidosis: Code(s): E87.2 - Acidosis Status: Acute Assessment and Plan: quite severe on admission corrected with dialytic intervention follow trend (6) Anemia: Code(s): D64.9 - Anemia, unspecified Status: Acute Assessment and Plan: somewhat of a chronic issues by history has required multiple PRBC transfusion in the past anemia studies suggest signifcant iron deficiency suspect ALBERTINA, CKD, and acute illness playing a role pancytopenia contributing as well getting IV iron Epogen with HD follow H/H (7) Hypocalcemia: Code(s): E83.51 - Hypocalcemia Status: Acute Assessment and Plan: presumably due to renal failure attempting correct with dialysis (8) Diabetes: Code(s): E11.9 - Type 2 diabetes mellitus without complications Status: Acute Assessment and Plan: follow accuchecks on SSI Discussed case with Dr. Patel. Will continue to follow. Subjective Date/time seen: 05/21/20 11:14 Tolerated dialysis yesterday evening without any issues or problems; remains intubated and sedated at this time; no apparent distress noted; plan for another dialysis treatment/session later today Exam Narrative: Exam Narrative: General: WD/WN female intubated/sedated Heart: normal S1 and S2; no rub Lungs: scatttered crackles/rhonchi and diminished throughout Abdomen: soft, nontender, nondistended, positive bowel sounds Extremities: no cyanosis or clubbing; 1+ edema Skin: warm and dry Objective Data Vital Signs Vital Signs: Vital Signs Temp Pulse Resp BP Pulse Ox 05/21/20 10:22 69 18 05/21/20 10:00 36.9 C 69 20 186/71 H 100 05/21/20 08:54 68 18 05/21/20 08:15 69 100 05/21/20 08:00 36.9 C 68 21 H 165/67 H 100 05/21/20 06:53 69 21 H 05/21/20 06:10 72 20 05/21/20 06:00 69 22 H 164/62 H 100 05/21/20 04:50 68 100 05/21/20 04:38 70 19 05/21/20 04:00 36.6 C 70 19 154/65 H 100 05/21/20 02:46 71 99 05/21/20 02:00
[2020-05-21] MEDS: carvediloL 25 MG TABLET PO ×2 (12:17→20:57)
[2020-05-21 12:54] LABS: Glucose Point of Care 162 (65-105)
[2020-05-21 13:03] LABS: Percent Iron Saturation < 4 % (20-50)
[2020-05-21 15:44] LABS: Hematocrit 25.2 % (37.0-47.0); Hemoglobin 8.7 g/dL (12.0-15.0)
[2020-05-21 17:49] LABS: Glucose Point of Care 171 (65-105)
[2020-05-22] VITALS (59 sets, daily range): BP systolic 112–174; BP diastolic 61–115; PULSE 60–77; RESP 9–29; TEMP 35.3–37.6; O2SAT 66–100
[2020-05-22 00:35] LABS: Glucose Point of Care 135 (65-105)
[2020-05-22] MEDS: hydrALAZINE HCL 20 MG/ML VIAL IV PUSH ×3 (03:27→12:42)
[2020-05-22 04:15] LABS: Alveolar/Arterial O2 Gradient 76.5 mmHg; Base Excess ABG -0.1 mEq/l (+/-2.0); Carboxyhemoglobin 0.3 % THb (0-2.0); Device VENTILATOR; Fractional Inspired Oxygen 30 %; HCO3 ABG 23.4 mEq/l (22.0-26.0); Methemoglobin ABG 0.2 %THb (0-1.5); Modified Allen's Test Unable to perform; Oxygen Content ABG 15.7 %vol (16.0-22.0); Oxygen Saturation ABG 97.7 % (95.0-100.0); Oxyhemoglobin 96.4 % THb (90.0-100.0); PO2 ABG 97.5 mmHg (80.0-100.0); PO2 FiO2 Ratio Arterial Blood 3.25 %; Reduced Hemoglobin 3.1 %THb (0-5.0); Site Drawn LEFT RADIAL; Total Hemoglobin 11.5 g/dL (12.0-18.0); pH ABG 7.455 (7.350-7.450)
[2020-05-22 04:16] LABS: Arterial Blood Gas PEEP 8 cmH2O; Arterial Blood Gas Tidal Volume 350 ml; Arterial Blood Gas Vent Mode CMV; Arterial Blood Gas Ventilator rate 18 /MIN
[2020-05-22 06:21] LABS: Basophils Percent Auto 0.2 % (0.2-1.2); Hematocrit 26.9 % (37.0-47.0); Hemoglobin 9.4 g/dL (12.0-15.0); Immature Granulocyte Absolute 0.03 K/mm3 (0.00-0.031); Immature Granulocyte Percent A 0.7 % (0-0.5); Immature Platelet Fraction Pct 2.5 % (0.9-11.2); Lymphocytes Absolute Auto 0.07 K/mm3 (0.9-3.2); Lymphocytes Percent Auto 1.7 % (18.3-44.2); Mean Corpuscular HGB Conc 34.9 g/dl (32-36); Mean Corpuscular Hemoglobin 31.3 pg (26-34); Mean Corpuscular Volume 89.7 fl (80-100); Mean Platelet Volume 10.7 fl (7.4-10.4); Monocytes Absolute Auto 0.1 K/mm3 (0.1-0.6); Monocytes Percent Auto 3.2 % (2.6-8.5); Neutrophils Absolute Auto 3.9 K/mm3 (1.3-6.7); Neutrophils Percent Auto 94.2 % (45.5-73.1); Nucleated Red Blood Cells Absolute Auto 0.1 K/mm3 (0.0-0.012); Nucleated Red Blood Cells Perc 1.5 % (0.0-0.2); Platelet Count Result 66 k/mm3 (150-375); Red Cell Distribution Width 15.6 % (11.5-14.5); White Blood Count 4.1 K/mm3 (4.5-10.0)
[2020-05-22 06:33] LABS: Lactic Acid 0.7 mmol/L (0.7-2.1)
[2020-05-22 06:34] LABS: INR 1.1; Prothrombin Time 14.2 Seconds (11.1-14.7)
[2020-05-22 06:35] LABS: Partial Thromboplastin Time 46.2 SECONDS (22.3-36.8)
[2020-05-22 06:38] LABS: Lactate Dehydrogenase 1037 U/L (313-618)
[2020-05-22 06:54] LABS: Alanine Aminotransferase 15 U/L (4-35); Albumin Level 2.6 g/dL (3.5-5.1); Alkaline Phosphatase 67 U/L (38-126); Anion Gap 11 mmol/L (8-16); Aspartate Amino Transferase 37 U/L (14-36); Bilirubin,Total 0.8 mg/dL (0.2-1.3); Blood Urea Nitrogen 20 mg/dL (7-17); Calcium 7.1 mg/dL (8.4-10.2); Carbon Dioxide 26 mmol/L (22-30); Chloride 97 mmol/L (98-107); Estimated CRCL calculation 17 ml/min; Estimated Glomerular Filt Rate 15; Glucose 148 mg/dL (65-105); Magnesium 1.7 mg/dL (1.6-2.3); Phosphorus 3.4 mg/dL (2.5-4.5); Potassium 3.5 mmol/L (3.4-5.0); Sodium 134 mmol/L (137-145)
[2020-05-22] MEDS: carvediloL 25 MG TABLET PO ×2 (07:41→21:04)
[2020-05-22] MEDS: PANTOPRAZOLE SODIUM IV 40 MG VIAL IV PUSH ×2 (07:42→21:04)
--- NOTE | 2020-05-22 09:38 | WPDINTPN ---
Progress Note: A&P Assessment and Plan (1) Acute respiratory failure: Qualifiers: Respiratory failure complication: unspecified whether with hypoxia or hypercapnia Qualified Code(s): J96.00 - Acute respiratory failure, unspecified whether with hypoxia or hypercapnia Code(s): J96.00 - Acute respiratory failure, unspecified whether with hypoxia or hypercapnia Status: Acute Assessment and Plan: patient with severe metabolic acidosis, impending respiratory failure with tachypnea, tachycardia, pneumonia secondary to COVID-19, possible heart failure, volume overload - patient is on CMV mode of ventilation, peep of 5, 40% FiO2 - ABGs and chest x-ray reviewed, will decrease respiratory rate. Chest x-ray improving - sedated with fentanyl and Versed infusion, maintain RASS of 0 to -2, daily sedation vacation (2) Shock: Code(s): R57.9 - Shock, unspecified Status: Acute Assessment and Plan: RESOLVED: on admission patient was in a state of shock with bradycardic, likely related to severe metabolic acidosis, briefly requiring dopamine for blood pressure support and vasopressor support - once she received her dialysis, dopamine was turned off - blood pressure is elevated, restarted Coreg - blood and urine cultures are negative - ceftriaxone and azithromycin was discontinued by Infectious Disease - bilateral lower extremity venous Dopplers 05/20/2020 was negative for DVT bilaterally (3) COVID-19: Code(s): U07.1 - COVID-19 Status: Acute Assessment and Plan: patient positive for COVID-19, has not been feeling well for the last 10-14 days, - currently intubated, according to the literature patient may be outside the window for Remdesivir - appreciate infectious disease evaluation recommendation. - continue dexamethasone #4/10 - Patient did receive a unit of convalescent plasma on 05/20/2020 - continue droplet, airborne and contact isolation/precautions - CRP trending down (4) Acute kidney injury superimposed on chronic kidney disease: Code(s): N17.9 - Acute kidney failure, unspecified; N18.9 - Chronic kidney disease, unspecified Status: Acute Assessment and Plan: patient has a history of chronic kidney disease stage 4 and had been told that she may be requiring dialysis at some point - patient presented with nausea, vomiting, diarrhea with decreased p.o. intake - her creatinine on admission was 13.5 with severe metabolic acidosis with a pH of 7.059 and a bicarb of 5.8 - emergent Logan dialysis catheter was inserted in the right subclavian vein and patient received her 1st dialysis on 05/19/2020 - appreciate nephrology following the patient, dialysis per Nephrology - renal ultrasound 05/20/2020 showing medical renal disease (5) Pancytopenia: Code(s): D61.818 - Other pancytopenia Status: Acute Assessment and Plan: patient with pancytopenia - has a history of chronic anemia - pancytopenia could be related to bone marrow issue secondary to uremia, DIC - appreciates the Hematology/Oncology evaluation recommendations. - Patient received a total of 2 units of FFP and 2 units of packed RBCs since admission along with 1 unit of convalescent plasma for COVID-19 - patient to receive Epogen and Venofer - [id number] has been ordered and pending (6) Type 2 diabetes mellitus: Code(s): E11.9 - Type 2 diabetes mellitus without complications Status: Acute Assessment and Plan: patient with history of type 2 diabetes, continue sliding scale insulin Accu-Cheks - patient on steroids, will monitor blood sugars closely - hemoglobin A1c is 5.1 this admission (7) CHF (congestive heart failure): Qualifiers: Heart failure chronicity: unspecified Heart failure type: unspecified Qualified Code(s): I50.9 - Heart failure, unspecified Code(s): I50.9 - Heart failure, unspecified Status: Acute Assessment and Pl
[2020-05-22 12:06] LABS: Glucose Point of Care 163 (65-105)
[2020-05-22 13:45] LABS: ADAMTS-13 Activity 92 % Activity (68-163)
[2020-05-22] MEDS: amLODIPine BESYLATE 5 MG TABLET PO (14:21)
--- NOTE | 2020-05-22 15:38 | P.PNNP_ITS ---
Progress Note: A&P Assessment and Plan (1) Lzvco-om-oettpzo renal failure: Code(s): N17.9 - Acute kidney failure, unspecified; N18.9 - Chronic kidney disease, unspecified Status: Acute Assessment and Plan: * apparently had advanced chronic kidney disease at baseline - renal ultrasound with increased parenchymal echogenicity consistent with chronic kidney disease - nephrotic range proteinuria/nephrotic syndrome seemes apparent - likely has diabetic nephropathy * follow-up on pending testing (SPE/UPE...etc.) * HD , Saturday, and Saturday this week * follow electrolytes, volume status, and clearance * given history and evidence to date, patient may now be dialysis dependent... (2) COVID-19: Code(s): U07.1 - COVID-19 Status: Acute Assessment and Plan: * tested positive * had not been feeling well 2 weeks prior to admission * apparently not a candidate for Remdesivir * Infectious Disease following * getting 10 day course of dexamethasone * s/p a unit of convalescent plasma (on 05/20/2020) * remains of droplet, airborne and contact isolation/precautions * trend inflammatory markers (3) Acute respiratory failure: Qualifiers: Respiratory failure complication: unspecified whether with hypoxia or hypercapnia Qualified Code(s): J96.00 - Acute respiratory failure, unspecified whether with hypoxia or hypercapnia Code(s): J96.00 - Acute respiratory failure, unspecified whether with hypoxia or hypercapnia Status: Acute Assessment and Plan: * due acute illness * intubated and on mechanical ventilation * wean as tolerated * DUF today for for fluid removal (4) Hypotension: Code(s): I95.9 - Hypotension, unspecified Status: Acute Assessment and Plan: * some component of shock on admission * briefly on dopamine which has since been weaned off * follow trend of hemodynamics (5) Metabolic acidosis: Code(s): E87.2 - Acidosis Status: Acute Assessment and Plan: * quite severe on admission * corrected with dialytic intervention * follow trend (6) Anemia: Code(s): D64.9 - Anemia, unspecified Status: Acute Assessment and Plan: * somewhat of a chronic issues by history * has required multiple PRBC transfusion in the past * anemia studies suggest signifcant iron deficiency * suspect ALBERTINA, CKD, and acute illness playing a role * pancytopenia contributing as well * getting IV iron * Epogen with HD * follow H/H (7) Hypocalcemia: Code(s): E83.51 - Hypocalcemia Status: Acute Assessment and Plan: * presumably due to renal failure * attempting correct with dialysis (8) Diabetes: Code(s): E11.9 - Type 2 diabetes mellitus without complications Status: Acute Assessment and Plan: * follow accuchecks * on SSI Discussed case with Dr. Patel. Will continue to follow. Subjective Date/time seen: 05/22/20 15:38 Tolerated hemodialysis treatment yesterday without any issue of problems; remains intubated and sedated; no other acute events overnight or earlier this AM. Exam Narrative: Exam Narrative: General: WD/WN female intubated/sedated Heart: normal S1 and S2; no rub Lungs: scatttered crackles/rhonchi and diminished throughout Abdomen: soft, nontender, nondistended, positive bowel sounds Extremities: no cyanosis or clubbing; 1+ edema Skin: warm and intact Objective Data
--- NOTE | 2020-05-22 15:38 | PM.PNNEP ---
Progress Note: A&P Assessment and Plan (1) Fvhjl-yr-zmvtbbh renal failure: Code(s): N17.9 - Acute kidney failure, unspecified; N18.9 - Chronic kidney disease, unspecified Status: Acute Assessment and Plan: apparently had advanced chronic kidney disease at baseline - renal ultrasound with increased parenchymal echogenicity consistent with chronic kidney disease - nephrotic range proteinuria/nephrotic syndrome seemes apparent - likely has diabetic nephropathy follow-up on pending testing (SPE/UPE...etc.) HD , Saturday, and Saturday this week follow electrolytes, volume status, and clearance given history and evidence to date, patient may now be dialysis dependent... (2) COVID-19: Code(s): U07.1 - COVID-19 Status: Acute Assessment and Plan: tested positive had not been feeling well 2 weeks prior to admission apparently not a candidate for Remdesivir Infectious Disease following getting 10 day course of dexamethasone s/p a unit of convalescent plasma (on 05/20/2020) remains of droplet, airborne and contact isolation/precautions trend inflammatory markers (3) Acute respiratory failure: Qualifiers: Respiratory failure complication: unspecified whether with hypoxia or hypercapnia Qualified Code(s): J96.00 - Acute respiratory failure, unspecified whether with hypoxia or hypercapnia Code(s): J96.00 - Acute respiratory failure, unspecified whether with hypoxia or hypercapnia Status: Acute Assessment and Plan: due acute illness intubated and on mechanical ventilation wean as tolerated DUF today for for fluid removal (4) Hypotension: Code(s): I95.9 - Hypotension, unspecified Status: Acute Assessment and Plan: some component of shock on admission briefly on dopamine which has since been weaned off follow trend of hemodynamics (5) Metabolic acidosis: Code(s): E87.2 - Acidosis Status: Acute Assessment and Plan: quite severe on admission corrected with dialytic intervention follow trend (6) Anemia: Code(s): D64.9 - Anemia, unspecified Status: Acute Assessment and Plan: somewhat of a chronic issues by history has required multiple PRBC transfusion in the past anemia studies suggest signifcant iron deficiency suspect ALBERTINA, CKD, and acute illness playing a role pancytopenia contributing as well getting IV iron Epogen with HD follow H/H (7) Hypocalcemia: Code(s): E83.51 - Hypocalcemia Status: Acute Assessment and Plan: presumably due to renal failure attempting correct with dialysis (8) Diabetes: Code(s): E11.9 - Type 2 diabetes mellitus without complications Status: Acute Assessment and Plan: follow accuchecks on SSI Discussed case with Dr. Patel. Will continue to follow. Subjective Date/time seen: 05/22/20 15:38 Tolerated hemodialysis treatment yesterday without any issue of problems; remains intubated and sedated; no other acute events overnight or earlier this AM. Exam Narrative: Exam Narrative: General: WD/WN female intubated/sedated Heart: normal S1 and S2; no rub Lungs: scatttered crackles/rhonchi and diminished throughout Abdomen: soft, nontender, nondistended, positive bowel sounds Extremities: no cyanosis or clubbing; 1+ edema Skin: warm and intact Objective Data Vital Signs Vital Signs: Vital Signs Temp Pulse Resp BP Pulse Ox 05/22/20 14:47 70 99 05/22/20 14:00 37.1 C 68 16 163/67 H 99 05/22/20 12:00 68 05/22/20 11:30 68 99 05/22/20 11:24 73 22 H 100 05/22/20 11:23 37.4 C 69 17 174/72 H 99 05/22/20 10:00 37.6 C 69 18 164/69 H 100 05/22/20 09:59 69 05/22/20 08:40 71 99 05/22/20 08:00 71 05/22/20 07:54 37.4 C 73 22 H 164/84 H 100 05/22/20 07:41 68 05/22/20 06:38 71 18 05/22/20
--- NOTE | 2020-05-22 18:12 | PM.IMPN ---
Progress Note: A&P Assessment and Plan (1) Acute respiratory failure: Qualifiers: Respiratory failure complication: unspecified whether with hypoxia or hypercapnia Qualified Code(s): J96.00 - Acute respiratory failure, unspecified whether with hypoxia or hypercapnia Code(s): J96.00 - Acute respiratory failure, unspecified whether with hypoxia or hypercapnia Status: Acute Assessment and Plan: Patient intubated and sedated. Stable on mechanical ventilation. Related to COVID pneumonia. Chest x-ray reviewed today showing improvement in the extensive bilateral pulmonary infiltrates related to COVID and probably pulmonary edema from her renal failure. Continue HD for fluid managment. Vent management per commercial loan collection officer. (2) Septic shock: Code(s): A41.9 - Sepsis, unspecified organism; R65.21 - Severe sepsis with septic shock Status: Acute Assessment and Plan: Patient with hypotension secondary to sepsis and hypovolemia. Patient also with hypothermic on admission with bradycardia and leukopenia. Patient required dopamine briefly but this was weaned off in the early childhood educator aide hours on 05/20/20. Blood pressure has since remained stable and actually now elevated. Blood products have helped improved perfusion. Concern patient may have DIC as well. Continue to monitor. appreciate hematology input. (3) COVID-19: Code(s): U07.1 - COVID-19 Status: Acute Assessment and Plan: Chest x-ray reviewed today showing persistent bilateral pulmonary infiltrates. COVID positive. CRP better at 7.0. Continue Dexamethasone. Remdesivir held due to her renal failure. Appreciate ID input. (4) Acute kidney injury superimposed on chronic kidney disease: Code(s): N17.9 - Acute kidney failure, unspecified; N18.9 - Chronic kidney disease, unspecified Status: Acute Assessment and Plan: Patient has CKD stage 4. Creatinine 13.5 on admission. Worsening renal function related to hypotension from hypovolemia and sepsis from COVID. Logan catheter placed 05/19/20 and hemodialysis started. Appreciate Nephrology input. (5) Chronic anemia: Code(s): D64.9 - Anemia, unspecified Status: Acute Assessment and Plan: Patient with chronic anemia with history of multiple blood transfusions. EGD and colonoscopy approximately 7 years ago reportedly showed no significant findings. Suspect acute anemia from unclear etiology. Consider hemolysis. LDH 956. Hemoccult negative from NG output. Hgb 9.4 this morning. Continue to monitor (6) Metabolic acidosis: Code(s): E87.2 - Acidosis Status: Acute Assessment and Plan: Secondary to renal failure. No evidence of DKA and lactic acid level normal. She was treated with sodium bicarbonate. Resolved with HD. (7) Pancytopenia: Code(s): D61.818 - Other pancytopenia Status: Acute Assessment and Plan: Etiology not clear but could be acute vs acute/chronic. Viral illnesses can cause pancytopenia. WBC better probably related to the steroids. Plt count climbing slowly. Hgb better at 9.4 now. Hematology following and appreciate their input (8) Type 2 diabetes mellitus: Code(s): E11.9 - Type 2 diabetes mellitus without complications Status: Acute Assessment and Plan: A1c 5.1% but possibly falsely low due to the anemia. Diabetes historically has been poorly controlled but family state improved glycemic control more recently. The patient's blood glucose was reviewed on 05/22/20. Glucose remains reasonably well controlled. Continue AccuCheks covering with sliding scale.
[2020-05-22 18:15] LABS: Glucose Point of Care 195 (65-105)
[2020-05-22 21:43] LABS: IFOB Positive Control Positive; Immunochemical Fecal Occult Bl Negative (N)
[2020-05-22] MEDS: INSULIN ASPART (*BKC) 100 UNITS/ML SUB-Q (23:14)
[2020-05-22 23:30] LABS: Glucose Point of Care 245 (65-105)
[2020-05-23] VITALS (26 sets, daily range): BP systolic 136–179; BP diastolic 61–94; PULSE 63–753; RESP 13–23; TEMP 36.2–37.1; O2SAT 97–100
[2020-05-23 04:59] LABS: Alveolar/Arterial O2 Gradient 108.9 mmHg; Carboxyhemoglobin 0.3 % THb (0-2.0); Fractional Inspired Oxygen 30 %; HCO3 ABG 18.8 mEq/l (22.0-26.0); Methemoglobin ABG 0.2 %THb (0-1.5); Oxygen Content ABG 14.4 %vol (16.0-22.0); Oxygen Saturation ABG 95.6 % (95.0-100.0); Oxyhemoglobin 93.6 % THb (90.0-100.0); PCO2 ABG 27.3 mmHg (35.0-45.0); PO2 ABG 72.9 mmHg (80.0-100.0); PO2 FiO2 Ratio Arterial Blood 2.43 %; Reduced Hemoglobin 5.9 %THb (0-5.0); Total Hemoglobin 10.9 g/dL (12.0-18.0); pH ABG 7.456 (7.350-7.450)
[2020-05-23 05:00] LABS: Device VENTILATOR; Modified Allen's Test Unable to perform; Site Drawn LEFT RADIAL
[2020-05-23 05:01] LABS: Arterial Blood Gas PEEP 8 cmH2O; Arterial Blood Gas Tidal Volume 350 ml; Arterial Blood Gas Vent Mode CMV; Arterial Blood Gas Ventilator rate 16 /MIN
[2020-05-23] MEDS: INSULIN ASPART (*BKC) 100 UNITS/ML SUB-Q ×4 (05:22→21:43)
[2020-05-23] MEDS: hydrALAZINE HCL 20 MG/ML VIAL IV PUSH (05:33)
[2020-05-23 05:57] LABS: Glucose Point of Care 294 (65-105)
[2020-05-23 06:04] LABS: Basophils Percent Auto 0.1 % (0.2-1.2); Hematocrit 28.4 % (37.0-47.0); Hemoglobin 9.6 g/dL (12.0-15.0); Immature Granulocyte Absolute 0.07 K/mm3 (0.00-0.031); Immature Platelet Fraction Pct 2.1 % (0.9-11.2); Lymphocytes Absolute Auto 0.06 K/mm3 (0.9-3.2); Lymphocytes Percent Auto 0.9 % (18.3-44.2); Mean Corpuscular HGB Conc 33.8 g/dl (32-36); Mean Corpuscular Volume 91.6 fl (80-100); Mean Platelet Volume 10.2 fl (7.4-10.4); Monocytes Absolute Auto 0.2 K/mm3 (0.1-0.6); Monocytes Percent Auto 2.5 % (2.6-8.5); Neutrophils Absolute Auto 6.5 K/mm3 (1.3-6.7); Neutrophils Percent Auto 95.5 % (45.5-73.1); Nucleated Red Blood Cells Absolute Auto 0.1 K/mm3 (0.0-0.012); Nucleated Red Blood Cells Perc 0.7 % (0.0-0.2); Platelet Count Result 74 k/mm3 (150-375); Red Cell Distribution Width 15.4 % (11.5-14.5); White Blood Count 6.8 K/mm3 (4.5-10.0)
[2020-05-23 06:14] LABS: INR 1.1; Prothrombin Time 13.9 Seconds (11.1-14.7)
[2020-05-23 06:15] LABS: Partial Thromboplastin Time 41.3 SECONDS (22.3-36.8)
[2020-05-23 06:18] LABS: Lactic Acid 0.6 mmol/L (0.7-2.1)
[2020-05-23 06:25] LABS: Alanine Aminotransferase 18 U/L (4-35); Albumin Level 2.5 g/dL (3.5-5.1); Alkaline Phosphatase 92 U/L (38-126); Anion Gap 13 mmol/L (8-16); Aspartate Amino Transferase 42 U/L (14-36); Bilirubin,Total 0.7 mg/dL (0.2-1.3); Blood Urea Nitrogen 40 mg/dL (7-17); CRP 5.8 mg/dL (<1.0); Calcium 7.3 mg/dL (8.4-10.2); Carbon Dioxide 24 mmol/L (22-30); Chloride 97 mmol/L (98-107); Estimated CRCL calculation 12 ml/min; Estimated Glomerular Filt Rate 9; Glucose 286 mg/dL (65-105); Lactate Dehydrogenase 1044 U/L (313-618); Magnesium 1.9 mg/dL (1.6-2.3); Phosphorus 4.7 mg/dL (2.5-4.5); Potassium 3.6 mmol/L (3.4-5.0); Sodium 134 mmol/L (137-145)
[2020-05-23 06:32] LABS: Hypochromasia 1+ (NORMAL); Platelet Estimate Decreased (Adequate); Poikilocytosis 1+ (NORMAL)
--- NOTE | 2020-05-23 08:15 | WPDINTPN ---
Progress Note: A&P Assessment and Plan (1) Acute respiratory failure: Qualifiers: Respiratory failure complication: unspecified whether with hypoxia or hypercapnia Qualified Code(s): J96.00 - Acute respiratory failure, unspecified whether with hypoxia or hypercapnia Code(s): J96.00 - Acute respiratory failure, unspecified whether with hypoxia or hypercapnia Status: Acute Assessment and Plan: respiratory failure secondary to pneumonia secondary to COVID-19, possible heart failure, volume overload - patient is on CMV mode of ventilation - decrease PEEP to 5 - ABGs and chest x-ray reviewed, - sedated with fentanyl and Versed infusion, maintain RASS of 0 to -2, daily sedation vacation - plan for additional hemodialysis session today. sedation vacation and possible breathing trial after hemodialysis (2) Shock: Code(s): R57.9 - Shock, unspecified Status: Acute Assessment and Plan: RESOLVED: on admission patient was in a state of shock with bradycardic, likely related to severe metabolic acidosis, briefly requiring dopamine for blood pressure support and vasopressor support - once she received her dialysis, dopamine was turned off - blood pressure is elevated, restarted Coreg - blood and urine cultures are negative - ceftriaxone and azithromycin was discontinued by Infectious Disease - bilateral lower extremity venous Dopplers 05/20/2020 was negative for DVT bilaterally (3) COVID-19: Code(s): U07.1 - COVID-19 Status: Acute Assessment and Plan: patient positive for COVID-19, has not been feeling well for the last 10-14 days, - did not receive Remdesivir due to late presentation and renal failure - appreciate infectious disease evaluation recommendation. - continue dexamethasone for 10 days - Patient did receive a unit of convalescent plasma on 05/20/2020 - continue droplet, airborne and contact isolation/precautions - monitor inflammatory markers (4) Acute kidney injury superimposed on chronic kidney disease: Code(s): N17.9 - Acute kidney failure, unspecified; N18.9 - Chronic kidney disease, unspecified Status: Acute Assessment and Plan: patient has a history of chronic kidney disease stage 4 and had been told that she may be requiring dialysis at some point - her creatinine on admission was 13.5 with severe metabolic acidosis with a pH of 7.059 and a bicarb of 5.8 - emergent Logan dialysis catheter was inserted in the right subclavian vein and patient received her 1st dialysis on 05/19/2020 - appreciate nephrology following the patient, dialysis per Nephrology - renal ultrasound 05/20/2020 showing medical renal disease - repeat hemodialysis session today - monitor electrolytes (5) Pancytopenia: Code(s): D61.818 - Other pancytopenia Status: Acute Assessment and Plan: patient with pancytopenia - has a history of chronic anemia - pancytopenia could be related to bone marrow issue secondary to uremia, DIC - appreciates the Hematology/Oncology evaluation recommendations. - Patient received a total of 2 units of FFP and 2 units of packed RBCs since admission along with 1 unit of convalescent plasma for COVID-19 - patient to receive Epogen and Venofer - [id number] activity in normal range - hemoglobin stable and platelet count is improving (6) Type 2 diabetes mellitus: Code(s): E11.9 - Type 2 diabetes mellitus without complications Status: Acute Assessment and Plan: patient with history of type 2 diabetes, continue sliding scale insulin Accu-Cheks - patient on steroids, will monitor blood sugars closely - hemoglobin A1c is 5.1 this admission - add Martina (7) CHF (congestive heart failure): Qualifiers: Heart failure chronicity: unspecified Heart failure type: unspecified Qualified Code(s): I50.9 - Heart failure, unspecified Code(s): I50.9 - Heart failure, unspecified
[2020-05-23] MEDS: carvediloL 25 MG TABLET PO ×2 (08:43→21:43)
[2020-05-23] MEDS: amLODIPine BESYLATE 5 MG TABLET PO (08:43)
[2020-05-23] MEDS: PANTOPRAZOLE SODIUM IV 40 MG VIAL IV PUSH ×2 (08:43→21:42)
--- NOTE | 2020-05-23 09:56 | WPDINFPN2 ---
Progress Note: A&P Assessment and Plan (1) COVID-19: Code(s): U07.1 - COVID-19 Status: Acute Assessment and Plan: 1. Hypoxemia and lung infiltrates due to CoVid viral pneumonia, remains intubated, CXR clearer (could be due to fluid overload as well) 2. CRI with worsening 3. DM and hyperglycemia, at least in part due to steroid REC Dexamethasone # 5 / 10. Plasma given 05/20. There is no remdesivir safety nor dosing data for CrCl <30 cc/min, so it is contra-indicated. Off antibacterials. Subjective Date/time seen: 05/23/20 09:56 Objective Data Vital Signs Vital Signs: Vital Signs - 24 hr 05/22/20 09:59 05/22/20 10:00 05/22/20 11:23 Temperature 37.6 C 37.4 C Pulse Rate 69 69 69 Respiratory Rate 18 17 Blood Pressure 164/69 H 174/72 H Pulse Oximetry 100 99 05/22/20 11:24 05/22/20 11:30 05/22/20 12:00 Temperature Pulse Rate 73 68 68 Respiratory Rate 22 H Blood Pressure Pulse Oximetry 100 99 05/22/20 14:00 05/22/20 14:47 05/22/20 16:00 Temperature 37.1 C 37.1 C Pulse Rate 68 70 66 Respiratory Rate 16 16 Blood Pressure 163/67 H 158/73 H Pulse Oximetry 99 99 99 05/22/20 16:32 05/22/20 16:36 05/22/20 18:00 Temperature 36.3 C L Pulse Rate 67 64 Respiratory Rate 17 16 Blood Pressure 112/61 Pulse Oximetry 66 L 99 05/22/20 20:00 05/22/20 20:06 05/22/20 21:00 Temperature 35.4 C L 35.3 C L Pulse Rate 64 61 62 Respiratory Rate 17 17 Blood Pressure 136/76 Pulse Oximetry 98 100 05/22/20 21:01 05/22/20 21:04 05/22/20 21:15 Temperature 35.3 C L 35.3 C L Pulse Rate 63 66 Respiratory Rate 17 Blood Pressure 147/72 H Pulse Oximetry 98 05/22/20 21:16 05/22/20 21:30 05/22/20 21:31 Temperature 35.3 C L 35.5 C L 35.5 C L Pulse Rate 66 67 Respiratory Rate 20 15 Blood Pressure 141/68 H 136/85 Pulse Oximetry 99 98 05/22/20 21:45 05/22/20 21:46 05/22/20 22:00 Temperature 35.8 C L 35.8 C L 36.0 C L Pulse Rate 65 64 Respiratory Rate 17 17 Blood Pressure 130/63 Pulse Oximetry 100 05/22/20 22:01 05/22/20 22:15 05/22/20 22:16 Temperature 36.0 C L 36.2 C L 36.2 C L Pulse Rate 64 65 Respiratory Rate 17 17 Blood Pressure 132/63 133/65 Pulse Oximetry 99 99 05/22/20 22:30 05/22/20 22:31 05/22/20 22:45 Temperature 36.0 C L 36.4 C L 36.6 C Pulse Rate 66 Respiratory Rate 18 Blood Pressure 136/66 Pulse Oximetry 99 05/22/20 22:46 05/22/20 22:59 05/22/20 23:00 Temperature 36.6 C 36.8 C Pulse Rate 67 66 Respiratory Rate 9 L Blood Pressure 141/67 H Pulse Oximetry 99 100 05/22/20 23:01 05/23/20 00:00 05/23/20 01:34 Temperature 36.8 C 37.1 C Pulse Rate 69 63 77 Respiratory Rate 29 H 18 Blood Pressure 143/64 H 153/72 H Pulse Oximetry 99 98 99 05/23/20 02:00 05/23/20 04:00 05/23/20 04:42 Temperature 36.2 C L Pulse Rate 64 70 65 Respiratory Rate 17 18 Blood Pressure 161/66 H 170/69 H Pulse Oximetry 97 99 98 05/23/20 05:33 05/23/20 06:00 05/23/20 06:11 Temperature 36.3 C L 36.3 C L Pulse Rate 70 73 72 Respiratory Rate 18 16 17 Blood Pressure 179/74 H 154/69 H Pulse Oximetry 100 99 05/23/20 06:14 05/23/20 06:17 05/23/20 08:00 Temperature 36.4 C Pulse Rate 74 74 72 Respiratory Rate 21 H 22 H 19 Blood Pressure 158/84 H Pulse Oximetry 100 05/23/20 08:39 05/23/20 08:43 Temperature Pulse Rate 78 76 Respiratory Rate Blood Pressure Pulse Oximetry 99 Intake/Output Intake/Output: Intake & Output 05/20/20 05/21/20 05/22/20 05/23/20 23:59 23:59 23:59 23:59 Intake Total 2140 459 255 383 Output Total 5089 885 5975 50 Balance 690 813 -3415 333 Meds/Results Medications: Active Medications Generic Name Dose Route Start Last Admin Trade Name Freq PRN Reason Stop Dose Admin Acetaminophen 650 mg 05/19/20 16:00 Tylenol Tablet PO Q4H PRN Mild Pain (1-3) or Fever Amlodipine Besylate 5 mg 05/22/20 11:30 05/23/20 08:43 Norvasc PO
--- NOTE | 2020-05-23 11:24 | PCDIET ---
Nutrition Follow-Up Complete: Nutrition Diagnosis: Inadequate energy intake related to mechanical vent as evidenced by NPO diet. Nutrition Goal: Meet estimated nutritional needs. Goal met. Patient tolerating Nepro at recommended goal rate of 35mL/hr. Plan for dialysis today, then breathing trial. MD ordered to hold tube feedings for breathing trial. Last recorded weight is 65.4 kg which is down from last review. -I/O with 2L fluid removal in dialysis yesterday. Bowel Motility: Large BM overnight reported by nursing. Labs Reviewed: Hgb (9.6), Hct (28.4), Glu (294), BUN (40), Cr (5.0), Na (134), Alb (2.5), Dorothy Ca (8.5) Meds Noted: Albumin, Novolog, Decadron, Versed, Dopamine, Protonix, Retacrit, Fentanyl Additional Notes: s/p Iron Sucrose x 3 days. Right neck incision. No pressure sores documented. Will continue to monitor with same goals. Nutrition Monitoring and Evaluation: Will follow every Saturday/Saturday. Follow daily in ICU rounds.
[2020-05-23] MEDS: INSULIN GLARGINE (*BKC) 100 UNITS/ML 20 UNITS SUB-Q (14:16)
[2020-05-23 14:20] LABS: Glucose Point of Care 412 (65-105)
--- NOTE | 2020-05-23 17:43 | WPDONCPN ---
Progress Note: A/P - Additional Plan 1. Pancytopenia. Patient multifactorial anemia improving (Hgb 9.6) after blood transfusion, dialysis with EPO and IV iron. Additionally, platelets up to 74,000 (dima 51,000). Her WBC has normalized for now. Suspect related to DIC sepsis in setting of COVID-19 infection. 2. Coagulopathy. s/p 3U of FFP. PTT is trending downward and nearly normalized. [id number] testing was normal. 3. Acute on chronic kidney disease. Patient on dialysis currently with EPO injection. Cr now down from 13.5 to 5.0. Anemia improving. - Time Spent With Patient Total time spent is greater than 50% in coordination of care (as documented) at patient's floor/unit and/or counseling patient: less than 15 minutes Subjective Interval history: 44 yo female who remains intubated and sedated. She presented with n/v and headaches, found to be COVID-19 positive according to her medical record as she is unable to give history at this time. Hematology workup to date favors coagulopathy r/t DIC sepsis. Additionally, labs were c/w WARREN. IV iron infusion was ordered. She remains on dialysis and receiving concurrent EPO. She has been transfused with 2U PRBCs, 3U FFP and 1U of convalescent plasma for COVID-19 infection. Review of Systems - Review of Systems unobtainable due to endotracheal tube - Neurologic Reports headache(s), Reports weakness, Denies focal weakness, Denies numbness Exam Vital signs: Temp Pulse Resp BP Pulse Ox 36.3 C L 72 18 145/94 H 97 05/23/20 14:00 05/23/20 15:11 05/23/20 14:00 05/23/20 14:00 05/23/20 15:11 - Constitutional Comments: Intubated, Telugu-speaking per chart - Routine HEENT Exam Head: Present: normal inspection, normocephalic Eye: Absent: scleral icterus - Routine Respiratory Exam Present: patient mechanically ventilated - Routine Cardiovascular Exam Cardiovascular: Present: RRR - Routine Abdominal Exam Present: normal bowel sounds, soft - Routine Extremities Exam Present: pulses intact - Detailed Upper Extremity Exam Shoulder/Upper Arm: Bilateral swelling (hands) - Detailed Neurological Exam: Coma Scale Eye Opening: Spontaneous PN: Objective Data - Labs CBC & Chem 7: 05/23/20 05:50 05/23/20 05:50 Labs: Laboratory Results - last 24 hr 05/22/20 05/22/20 05/22/20 18:11 21:13 23:10 WBC RBC Hgb Hct MCV MCH MCHC RDW Plt Count MPV Immature Gran % (Auto) Neut % (Auto) Lymph % (Auto) [place] % (Auto) Eos % (Auto) Baso % (Auto) Lymph # (Auto) [place] # (Auto) Eos # (Auto) Baso # (Auto) Abs Immat Gran (auto) Absolute Neuts (auto) Absolute Nucleated RBC Nucleated RBC % Platelet Estimate % Immature Plt Fraction Hypochromasia Poikilocytosis PT INR APTT D-Dimer Puncture Site ABG pH ABG pCO2 ABG pO2 ABG PO2/FiO2 Ratio ABG HCO3 ABG O2 Saturation ABG O2 Content ABG Base Excess A-a Gradient Oxyhemoglobin Carboxyhemoglobin Methemoglobin Reduced Hemoglobin Total Hemoglobin O2 Delivery Device O2 Liters/Min Minute Volume Vent Rate Vent Mode FiO2 Tidal Volume PEEP Peak Inspir Pressure Pressure Support Sodium Potassium Chloride Carbon Dioxide Anion Gap BUN Creatinine Estim Creat Clear Calc Estimated GFR Glucose POC Capillary Glucose 195 H 245 H Lactic Acid Calcium Phosphorus Magnesium Ferritin Total Bilirubin AST ALT Alkaline Phosphatase Lactate Dehydrogenase C-Reactive Protein Total Protein Albumin Stl Occult Blood (IFOB) Negative 05/23/20 05/23/20 05/23/20 04:54 05:20 05:50 WBC 6.8 RBC 3.10 L Hgb 9.6 L Hct 28.4 L MCV 91.6 MCH 31.0 MCHC 33.8 RDW 15.4 H Plt Count 74 L MPV 10.2 Immature Gran % (Auto) 1.0 H Neut % (Aut
--- NOTE | 2020-05-23 17:47 | P.PNNP_ITS ---
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 * plan next HD session tomorrow. (2) COVID-19: Code(s): U07.1 - COVID-19 Status: Acute Assessment and Plan: * tested positive * had not been feeling well 2 weeks prior to admission * apparently not a candidate for Remdesivir * Infectious Disease following * getting 10 day course of dexamethasone * s/p a unit of convalescent plasma (on 05/20/2020) * remains of droplet, airborne and contact isolation/precautions * trend inflammatory markers (3) Acute respiratory failure: Qualifiers: Respiratory failure complication: unspecified whether with hypoxia or hypercapnia Qualified Code(s): J96.00 - Acute respiratory failure, unspecified whether with hypoxia or hypercapnia Code(s): J96.00 - Acute respiratory failure, unspecified whether with hypoxia or hypercapnia Status: Acute Assessment and Plan: * due acute illness * intubated and on mechanical ventilation * wean as tolerated (4) Hypotension: Code(s): I95.9 - Hypotension, unspecified Status: Acute Assessment and Plan: * some component of shock on admission * briefly on dopamine which has since been weaned off * follow trend of hemodynamics (5) Metabolic acidosis: Code(s): E87.2 - Acidosis Status: Acute Assessment and Plan: * quite severe on admission * corrected with dialytic intervention * follow trend (6) Anemia: Code(s): D64.9 - Anemia, unspecified Status: Acute Assessment and Plan: * somewhat of a chronic issue by history * has required multiple PRBC transfusion in the past * anemia studies suggest signifcant iron deficiency * suspect ALBERTINA, CKD, and acute illness playing a role * pancytopenia contributing as well * getting IV iron * Epogen with HD * follow H/H (7) Hypocalcemia: Code(s): E83.51 - Hypocalcemia Status: Acute Assessment and Plan: * presumably due to renal failure * attempting correct with dialysis (8) Diabetes: Code(s): E11.9 - Type 2 diabetes mellitus without complications Status: Acute Assessment and Plan: * follow accuchecks * on SSI Will continue to follow. Subjective Date/time seen: 05/23/20 17:47 Tolerated dry ultrafiltration yesterday without any issues -- fluid removal reduced due hemodynamics (drops in BP); remains on mechanical ventilation at this time. Exam Narrative: Exam Narrative: General: WD/WN female intubated/sedated Heart: normal S1 and S2; no rub Lungs: scatttered crackles/rhonchi and diminished throughout Abdomen: soft, nontender, nondistended, positive bowel sounds Extremities: no cyanosis or clubbing; 1+ edema Skin: warm and intact Objective Data Vital Sign
--- NOTE | 2020-05-23 17:47 | PM.PNNEP ---
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 plan next HD session tomorrow. (2) COVID-19: Code(s): U07.1 - COVID-19 Status: Acute Assessment and Plan: tested positive had not been feeling well 2 weeks prior to admission apparently not a candidate for Remdesivir Infectious Disease following getting 10 day course of dexamethasone s/p a unit of convalescent plasma (on 05/20/2020) remains of droplet, airborne and contact isolation/precautions trend inflammatory markers (3) Acute respiratory failure: Qualifiers: Respiratory failure complication: unspecified whether with hypoxia or hypercapnia Qualified Code(s): J96.00 - Acute respiratory failure, unspecified whether with hypoxia or hypercapnia Code(s): J96.00 - Acute respiratory failure, unspecified whether with hypoxia or hypercapnia Status: Acute Assessment and Plan: due acute illness intubated and on mechanical ventilation wean as tolerated (4) Hypotension: Code(s): I95.9 - Hypotension, unspecified Status: Acute Assessment and Plan: some component of shock on admission briefly on dopamine which has since been weaned off follow trend of hemodynamics (5) Metabolic acidosis: Code(s): E87.2 - Acidosis Status: Acute Assessment and Plan: quite severe on admission corrected with dialytic intervention follow trend (6) Anemia: Code(s): D64.9 - Anemia, unspecified Status: Acute Assessment and Plan: somewhat of a chronic issue by history has required multiple PRBC transfusion in the past anemia studies suggest signifcant iron deficiency suspect ALBERTINA, CKD, and acute illness playing a role pancytopenia contributing as well getting IV iron Epogen with HD follow H/H (7) Hypocalcemia: Code(s): E83.51 - Hypocalcemia Status: Acute Assessment and Plan: presumably due to renal failure attempting correct with dialysis (8) Diabetes: Code(s): E11.9 - Type 2 diabetes mellitus without complications Status: Acute Assessment and Plan: follow accuchecks on SSI Will continue to follow. Subjective Date/time seen: 05/23/20 17:47 Tolerated dry ultrafiltration yesterday without any issues -- fluid removal reduced due hemodynamics (drops in BP); remains on mechanical ventilation at this time. Exam Narrative: Exam Narrative: General: WD/WN female intubated/sedated Heart: normal S1 and S2; no rub Lungs: scatttered crackles/rhonchi and diminished throughout Abdomen: soft, nontender, nondistended, positive bowel sounds Extremities: no cyanosis or clubbing; 1+ edema Skin: warm and intact Objective Data Vital Signs Vital Signs: Vital Signs Temp Pulse Resp BP Pulse Ox 05/23/20 15:11 72 97 05/23/20 14:00 36.3 C L 77 18 145/94 H 97 05/23/20 12:00 36.3 C L 71 18 161/63 H 99 05/23/20 10:35 72 99 05/23/20 10:00 36.4 C L 69 18 168/61 H 100 05/23/20 08:43 76 05/23/20 08:39 78 99 05/23/20 08:00 36.4 C 73 19 158/84 H 100 05/23/20 06:17 74 22 H 05/23/20 06:14 74 21 H 05/23/20 06:11 72 17 05/23/20 06:00 36.3 C L 73 16 154/69 H 99 05/23/20 05:33
--- NOTE | 2020-05-23 18:09 | PM.IMPN ---
Progress Note: A&P Assessment and Plan (1) Acute respiratory failure: Qualifiers: Respiratory failure complication: unspecified whether with hypoxia or hypercapnia Qualified Code(s): J96.00 - Acute respiratory failure, unspecified whether with hypoxia or hypercapnia Code(s): J96.00 - Acute respiratory failure, unspecified whether with hypoxia or hypercapnia Status: Acute Assessment and Plan: Patient intubated and sedated. Stable on mechanical ventilation. Related to COVID pneumonia. Chest x-ray reviewed today showing no change in the extensive bilateral pulmonary infiltrates related to COVID and probably pulmonary edema from her renal failure. Continue HD for fluid managment. Vent management per odd ticket clerk. (2) Septic shock: Code(s): A41.9 - Sepsis, unspecified organism; R65.21 - Severe sepsis with septic shock Status: Acute Assessment and Plan: Patient with hypotension secondary to sepsis and hypovolemia. Patient also with hypothermic on admission with bradycardia and leukopenia. Patient required dopamine briefly but this was weaned off in the health care social worker hours on 05/20/20. Blood pressure has since remained stable and actually now elevated. Blood products have helped improved perfusion. Concern patient may have DIC as well. Continue to monitor. (3) COVID-19: Code(s): U07.1 - COVID-19 Status: Acute Assessment and Plan: COVID positive. Chest x-ray reviewed today showing persistent bilateral pulmonary infiltrates. CRP better at 7.0. Continue Dexamethasone. Convalescent plasma given 05/20/20. Remdesivir held due to her renal failure. Appreciate ID input. (4) Acute kidney injury superimposed on chronic kidney disease: Code(s): N17.9 - Acute kidney failure, unspecified; N18.9 - Chronic kidney disease, unspecified Status: Acute Assessment and Plan: Patient has CKD stage 4. Creatinine 13.5 on admission. Worsening renal function related to hypotension from hypovolemia and sepsis from COVID. Logan catheter placed 05/19/20 and hemodialysis started. Appreciate Nephrology input. (5) Chronic anemia: Code(s): D64.9 - Anemia, unspecified Status: Acute Assessment and Plan: Hgb 6.6 on admission. Patient with chronic anemia with history of multiple blood transfusions. EGD and colonoscopy approximately 7 years ago reportedly showed no significant findings. Suspect acute anemia from unclear etiology. Consider hemolysis. LDH 956. Hemoccult negative from NG output. Hgb 9.6 this morning. Continue to monitor (6) Metabolic acidosis: Code(s): E87.2 - Acidosis Status: Acute Assessment and Plan: Secondary to renal failure. No evidence of DKA and lactic acid level normal. She was treated with sodium bicarbonate. Resolved with HD. (7) Pancytopenia: Code(s): D61.818 - Other pancytopenia Status: Acute Assessment and Plan: Etiology not clear but could be acute vs acute/chronic. Viral illnesses can cause pancytopenia. Suspected she has DIC from COVID. WBC better probably related to the steroids. Plt count climbing slowly. Hgb better at 9.6 now. Hematology following and appreciate their input (8) Type 2 diabetes mellitus: Code(s): E11.9 - Type 2 diabetes mellitus without complications Status: Acute Assessment and Plan: A1c 5.1% but possibly falsely low due to the anemia. Diabetes historically has been poorly controlled but family state improved glycemic control more recently. The patient's blood glucose was reviewed on 05/23/20. Glucose now poorly controlled
[2020-05-23 21:28] LABS: Glucose Point of Care 358 (65-105)
[2020-05-23 22:00] LABS: Glucose Point of Care 332 (65-105)
[2020-05-23 22:02] LABS: Hepatitis B Core Ab Total Nonreactive (Nonreactive)
[2020-05-24] VITALS (40 sets, daily range): BP systolic 83–181; BP diastolic 62–90; PULSE 67–84; RESP 15–23; TEMP 36.1–37.3; O2SAT 93–100
[2020-05-24] MEDS: INSULIN ASPART (*BKC) 100 UNITS/ML SUB-Q ×3 (02:02→08:40)
[2020-05-24 03:12] LABS: Glucose Point of Care 293 (65-105)
[2020-05-24 05:05] LABS: Basophils Percent Auto 0.2 % (0.2-1.2); Hematocrit 26.5 % (37.0-47.0); Hemoglobin 8.9 g/dL (12.0-15.0); Immature Granulocyte Absolute 0.12 K/mm3 (0.00-0.031); Immature Granulocyte Percent A 1.2 % (0-0.5); Immature Platelet Fraction Pct 2.2 % (0.9-11.2); Lymphocytes Absolute Auto 0.11 K/mm3 (0.9-3.2); Lymphocytes Percent Auto 1.1 % (18.3-44.2); Mean Corpuscular HGB Conc 33.6 g/dl (32-36); Mean Corpuscular Hemoglobin 30.6 pg (26-34); Mean Corpuscular Volume 91.1 fl (80-100); Mean Platelet Volume 10.9 fl (7.4-10.4); Monocytes Absolute Auto 0.2 K/mm3 (0.1-0.6); Monocytes Percent Auto 1.8 % (2.6-8.5); Neutrophils Absolute Auto 9.3 K/mm3 (1.3-6.7); Neutrophils Percent Auto 95.7 % (45.5-73.1); Nucleated Red Blood Cells Perc 0.2 % (0.0-0.2); Platelet Count Result 73 k/mm3 (150-375); Red Blood Count 2.91 M/mm3 (4.2-5.4); Red Cell Distribution Width 14.7 % (11.5-14.5); White Blood Count 9.7 K/mm3 (4.5-10.0)
[2020-05-24 05:16] LABS: Lactic Acid 1.7 mmol/L (0.7-2.1)
[2020-05-24 05:18] LABS: INR 1.1; Prothrombin Time 13.7 Seconds (11.1-14.7)
[2020-05-24 05:19] LABS: Partial Thromboplastin Time 36.6 SECONDS (22.3-36.8)
[2020-05-24 05:31] LABS: Alanine Aminotransferase 19 U/L (4-35); Albumin Level 2.4 g/dL (3.5-5.1); Alkaline Phosphatase 106 U/L (38-126); Anion Gap 7 mmol/L (8-16); Aspartate Amino Transferase 37 U/L (14-36); Bilirubin,Total 0.6 mg/dL (0.2-1.3); Blood Urea Nitrogen 57 mg/dL (7-17); Calcium 7.4 mg/dL (8.4-10.2); Carbon Dioxide 29 mmol/L (22-30); Chloride 96 mmol/L (98-107); Estimated CRCL calculation 10 ml/min; Estimated Glomerular Filt Rate 8; Glucose 294 mg/dL (65-105); Magnesium 2.1 mg/dL (1.6-2.3); Phosphorus 3.2 mg/dL (2.5-4.5); Potassium 3.4 mmol/L (3.4-5.0); Sodium 132 mmol/L (137-145)
[2020-05-24] MEDS: hydrALAZINE HCL 20 MG/ML VIAL IV PUSH ×2 (06:31→22:09)
[2020-05-24 06:45] LABS: Glucose Point of Care 303 (65-105)
[2020-05-24] MEDS: carvediloL 25 MG TABLET PO (08:30)
[2020-05-24] MEDS: amLODIPine BESYLATE 5 MG TABLET PO (08:30)
--- NOTE | 2020-05-24 08:30 | WPDINTPN ---
Progress Note: A&P Assessment and Plan (1) Acute respiratory failure: Qualifiers: Respiratory failure complication: unspecified whether with hypoxia or hypercapnia Qualified Code(s): J96.00 - Acute respiratory failure, unspecified whether with hypoxia or hypercapnia Code(s): J96.00 - Acute respiratory failure, unspecified whether with hypoxia or hypercapnia Status: Acute Assessment and Plan: respiratory failure secondary to pneumonia secondary to COVID-19, possible heart failure, volume overload - patient is on CMV mode of ventilation - PEEP decreased to 5 and FiO2 at 30% - ABGs and chest x-ray reviewed, - sedated with fentanyl and Versed infusion, maintain RASS of 0 to -2, daily sedation vacation - plan for additional hemodialysis session today. sedation vacation and possible breathing trial after hemodialysis (2) Shock: Code(s): R57.9 - Shock, unspecified Status: Acute Assessment and Plan: RESOLVED: on admission patient was in a state of shock with bradycardic, likely related to severe metabolic acidosis, briefly requiring dopamine for blood pressure support and vasopressor support - once she received her dialysis, dopamine was turned off - blood pressure is elevated, restarted Coreg - blood and urine cultures are negative - ceftriaxone and azithromycin was discontinued by Infectious Disease - bilateral lower extremity venous Dopplers 05/20/2020 was negative for DVT bilaterally (3) COVID-19: Code(s): U07.1 - COVID-19 Status: Acute Assessment and Plan: patient positive for COVID-19, has not been feeling well for the last 10-14 days, - did not receive Remdesivir due to late presentation and renal failure - appreciate infectious disease evaluation recommendation. - continue dexamethasone for 10 days - Patient did receive a unit of convalescent plasma on 05/20/2020 - continue droplet, airborne and contact isolation/precautions - monitor inflammatory markers (4) Acute kidney injury superimposed on chronic kidney disease: Code(s): N17.9 - Acute kidney failure, unspecified; N18.9 - Chronic kidney disease, unspecified Status: Acute Assessment and Plan: patient has a history of chronic kidney disease stage 4 and had been told that she may be requiring dialysis at some point - her creatinine on admission was 13.5 with severe metabolic acidosis with a pH of 7.059 and a bicarb of 5.8 - emergent Logan dialysis catheter was inserted in the right subclavian vein and patient received her 1st dialysis on 05/19/2020 - appreciate nephrology following the patient, dialysis per Nephrology - renal ultrasound 05/20/2020 showing medical renal disease - Hemodialysis session was not done yesterday but is currently being done at this time - monitor electrolytes (5) Pancytopenia: Code(s): D61.818 - Other pancytopenia Status: Acute Assessment and Plan: patient with pancytopenia - has a history of chronic anemia - pancytopenia could be related to bone marrow issue secondary to uremia, DIC - appreciates the Hematology/Oncology evaluation recommendations. - Patient received a total of 2 units of FFP and 2 units of packed RBCs since admission along with 1 unit of convalescent plasma for COVID-19 - patient to receive Epogen and Venofer - [id number] activity in normal range - hemoglobin stable and platelet count is improving (6) Type 2 diabetes mellitus: Code(s): E11.9 - Type 2 diabetes mellitus without complications Status: Acute Assessment and Plan: patient with history of type 2 diabetes, continue sliding scale insulin Accu-Cheks - patient on steroids, will monitor blood sugars closely - hemoglobin A1c is 5.1 this admission - continue Lantus (7) CHF (congestive heart failure): Qualifiers: Heart failure chronicity: unspecified Heart failure type: unspecified Qualified Code(s): I50.9 - Heart won
[2020-05-24] MEDS: INSULIN GLARGINE (*BKC) 100 UNITS/ML 20 UNITS SUB-Q (08:39)
[2020-05-24] MEDS: PANTOPRAZOLE SODIUM IV 40 MG VIAL IV PUSH ×2 (08:40→22:09)
--- NOTE | 2020-05-24 09:27 | P.PNNP_ITS ---
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 (2) COVID-19: Code(s): U07.1 - COVID-19 Status: Acute Assessment and Plan: * tested positive * had not been feeling well 2 weeks prior to admission * apparently not a candidate for Remdesivir * Infectious Disease following * getting 10 day course of dexamethasone * s/p a unit of convalescent plasma (on 05/20/2020) * remains of droplet, airborne and contact isolation/precautions * trend inflammatory markers (3) Acute respiratory failure: Qualifiers: Respiratory failure complication: unspecified whether with hypoxia or hypercapnia Qualified Code(s): J96.00 - Acute respiratory failure, unspecified whether with hypoxia or hypercapnia Code(s): J96.00 - Acute respiratory failure, unspecified whether with hypoxia or hypercapnia Status: Acute Assessment and Plan: * due acute illness * intubated and on mechanical ventilation * wean as tolerated (4) Hypotension: Code(s): I95.9 - Hypotension, unspecified Status: Acute Assessment and Plan: * some component of shock on admission * briefly on dopamine which has since been weaned off * follow trend of hemodynamics (5) Metabolic acidosis: Code(s): E87.2 - Acidosis Status: Acute Assessment and Plan: * quite severe on admission * corrected with dialytic intervention * follow trend (6) Anemia: Code(s): D64.9 - Anemia, unspecified Status: Acute Assessment and Plan: * somewhat of a chronic issue by history * has required multiple PRBC transfusion in the past * anemia studies suggest signifcant iron deficiency * suspect ALBERTINA, CKD, and acute illness playing a role * pancytopenia contributing as well * getting IV iron * Epogen with HD * follow H/H (7) Hypocalcemia: Code(s): E83.51 - Hypocalcemia Status: Acute Assessment and Plan: * presumably due to renal failure * attempting correct with dialysis (8) Diabetes: Code(s): E11.9 - Type 2 diabetes mellitus without complications Status: Acute Assessment and Plan: * follow accuchecks * on SSI Will continue to follow. Subjective Date/time seen: 05/24/20 09:27 Tolerating hemodialysis at the time of my visit (seen on HD at ~ 9:15AM); remain on mechanical ventilation but remains hemodynamically stable; no new issues or problems to report at this time. Exam 2 Narrative: Exam Narrative: General: WD/WN female intubated/sedated Heart: normal S1 and S2; no rub Lungs: diminished throughout Abdomen: soft, nontender, nondistended, positive bowel sounds Extremities: no cyanosis or clubbing; 1+ edema Skin: no rash Objective Data Vital Signs Vital Signs: Vital Signs Temp Pulse Re
--- NOTE | 2020-05-24 09:27 | PM.PNNEP ---
Progress Note: A&P Assessment and Plan (1) Wqatv-ze-pahjamu renal failure: Code(s): N17.9 - Acute kidney failure, unspecified; N18.9 - Chronic kidney disease, unspecified Status: Acute Assessment and Plan: apparently had advanced chronic kidney disease at baseline - renal ultrasound with increased parenchymal echogenicity consistent with chronic kidney disease - nephrotic range proteinuria/nephrotic syndrome seems apparent - likely has diabetic nephropathy follow-up on pending testing (SPE/UPE...etc.) HD today follow electrolytes, volume status, and clearance given history and evidence to date, patient may now be dialysis dependent... (2) COVID-19: Code(s): U07.1 - COVID-19 Status: Acute Assessment and Plan: tested positive had not been feeling well 2 weeks prior to admission apparently not a candidate for Remdesivir Infectious Disease following getting 10 day course of dexamethasone s/p a unit of convalescent plasma (on 05/20/2020) remains of droplet, airborne and contact isolation/precautions trend inflammatory markers (3) Acute respiratory failure: Qualifiers: Respiratory failure complication: unspecified whether with hypoxia or hypercapnia Qualified Code(s): J96.00 - Acute respiratory failure, unspecified whether with hypoxia or hypercapnia Code(s): J96.00 - Acute respiratory failure, unspecified whether with hypoxia or hypercapnia Status: Acute Assessment and Plan: due acute illness intubated and on mechanical ventilation wean as tolerated (4) Hypotension: Code(s): I95.9 - Hypotension, unspecified Status: Acute Assessment and Plan: some component of shock on admission briefly on dopamine which has since been weaned off follow trend of hemodynamics (5) Metabolic acidosis: Code(s): E87.2 - Acidosis Status: Acute Assessment and Plan: quite severe on admission corrected with dialytic intervention follow trend (6) Anemia: Code(s): D64.9 - Anemia, unspecified Status: Acute Assessment and Plan: somewhat of a chronic issue by history has required multiple PRBC transfusion in the past anemia studies suggest signifcant iron deficiency suspect ALBERTINA, CKD, and acute illness playing a role pancytopenia contributing as well getting IV iron Epogen with HD follow H/H (7) Hypocalcemia: Code(s): E83.51 - Hypocalcemia Status: Acute Assessment and Plan: presumably due to renal failure attempting correct with dialysis (8) Diabetes: Code(s): E11.9 - Type 2 diabetes mellitus without complications Status: Acute Assessment and Plan: follow accuchecks on SSI Will continue to follow. Subjective Date/time seen: 05/24/20 09:27 Tolerating hemodialysis at the time of my visit (seen on HD at ~ 9:15AM); remain on mechanical ventilation but remains hemodynamically stable; no new issues or problems to report at this time. Exam Narrative: Exam Narrative: General: WD/WN female intubated/sedated Heart: normal S1 and S2; no rub Lungs: diminished throughout Abdomen: soft, nontender, nondistended, positive bowel sounds Extremities: no cyanosis or clubbing; 1+ edema Skin: no rash Objective Data Vital Signs Vital Signs: Vital Signs Temp Pulse Resp BP Pulse Ox 05/24/20 09:15 74 140/74 05/24/20 09:06 74 95 05/24/20 09:00 74 155/75 H 05/24/20 08:50 72 162/71 H 05/24/20 08:45 36.6 C 72 18 162/74 H 100 05/24/20 06:30 179/89 H 05/24/20 06:11 68 97 05/24/20 06:00 67 19 181/77 H 97 05/24/20 04:00 36.5 C 69 21 H 170/74 H 100 05/24/20 03:00 69 100 05/24/20 02:00 36.6 C 67 18 165/70 H 98 05/24/20 00:00 36.6 C 70 18 165/77 H 97 05/23/20 23:15 71 97 05/23/20 22:00 36.4 C L 76 16 160/71 H 97 05/23/20 21:43 77 05/23/20 2
[2020-05-24 10:58] LABS: Glucose Point of Care 280 (65-105)
[2020-05-24] MEDS: EPOETIN ALFA-EPBX 10,000 UNITS/ML VIAL 10000 UNITS IV PUSH (10:58)
--- NOTE | 2020-05-24 11:00 | PCDIET ---
Nutrition Follow-Up Complete: Nutrition Diagnosis: Inadequate energy intake related to mechanical vent as evidenced by NPO Nutrition Goal: Meet estimated nutritional needs. Goal met. Patient tolerating Nepro at 35mL/hr goal rate without reported issues. Plan for dialysis again today, then breathing trial. Last recorded weight is 67.5 kg which is up from last review. +I/O. Bowel Motility: Last documented BM on 05/23/20. Labs Reviewed: Hgb (8.9), Hct (26.5), Glu (303), BUN (57), Cr (5.9), Na (132), Alb (2.4), Dorothy Ca (8.68) Meds Noted: Novolog, Lantus, Versed, Albumin, Retacrit, Decadron, Fentanyl, Protonix Additional Notes: Right neck incision present without reported pressure ulcers. 20u Lantus added, along with increase in Novolog from 3u to 5u. Will continue to monitor with same goal. Nutrition Monitoring and Evaluation: Follow up every Saturday/Saturday. Follow daily in ICU rounds.
[2020-05-24 12:21] LABS: Glucose Point of Care 111 (65-105)
[2020-05-24] MEDS: HEPARIN SODIUM 1,000 UNITS/ML VIAL 1000 UNITS IV PUSH (12:32)
[2020-05-24 14:33] LABS: Alveolar/Arterial O2 Gradient 117.7 mmHg; Base Excess ABG 4.2 mEq/l (+/-2.0); Fractional Inspired Oxygen 30 %; Oxygen Saturation ABG 92.2 % (95.0-100.0); Oxyhemoglobin 90.5 % THb (90.0-100.0); PCO2 ABG 34.1 mmHg (35.0-45.0); PO2 ABG 56.1 mmHg (80.0-100.0); PO2 FiO2 Ratio Arterial Blood 1.87 %
[2020-05-24 14:34] LABS: pH ABG 7.517 (7.350-7.450)
[2020-05-24 14:35] LABS: Arterial Blood Gas PEEP 5 cmH2O; Arterial Blood Gas Pressure Support 5 cmH2O; Arterial Blood Gas Vent Mode SPONTANEOUS; Device VENTILATOR; Modified Allen's Test Pass; Site Drawn LEFT RADIAL
--- NOTE | 2020-05-24 15:54 | PM.EVENT ---
Event Note Event Note Event Note: 5/5 PSV SBT done for more than 1/2 hour. RSBI, ABGI and Vitals acceptable. Pt drowsy but easily arousable and following commands intermittently. some of it may be from line language barrier. Will extubate and monitor. NPO for now.
--- NOTE | 2020-05-24 17:20 | PM.IMPN ---
Progress Note: A&P Assessment and Plan (1) Acute respiratory failure: Qualifiers: Respiratory failure complication: unspecified whether with hypoxia or hypercapnia Qualified Code(s): J96.00 - Acute respiratory failure, unspecified whether with hypoxia or hypercapnia Code(s): J96.00 - Acute respiratory failure, unspecified whether with hypoxia or hypercapnia Status: Acute Assessment and Plan: Patient intubated and sedated. Stable on mechanical ventilation. Related to COVID pneumonia. Chest x-ray reviewed 05/23 showing improvement in the extensive bilateral pulmonary infiltrates related to COVID and probably pulmonary edema from her renal failure. Continue HD for fluid managment. Vent management per foreign exchange trader. (2) Septic shock: Code(s): A41.9 - Sepsis, unspecified organism; R65.21 - Severe sepsis with septic shock Status: Acute Assessment and Plan: Patient with hypotension secondary to sepsis and hypovolemia. Patient also with hypothermic on admission with bradycardia and leukopenia. Patient required dopamine briefly but this was weaned off in the early head start director hours on 05/20/20. Blood pressure has since remained stable and actually now elevated. Blood products have helped improved perfusion. Continue to monitor. appreciate hematology input. (3) COVID-19: Code(s): U07.1 - COVID-19 Status: Acute Assessment and Plan: Chest x-ray reviewed today showing persistent bilateral pulmonary infiltrates. COVID positive. CRP better at 7.0. Continue Dexamethasone. Remdesivir held due to her renal failure. Appreciate ID input. (4) Acute kidney injury superimposed on chronic kidney disease: Code(s): N17.9 - Acute kidney failure, unspecified; N18.9 - Chronic kidney disease, unspecified Status: Acute Assessment and Plan: Patient has CKD stage 4. Creatinine 13.5 on admission. Worsening renal function related to hypotension from hypovolemia and sepsis from COVID. Logan catheter placed 05/19/20 and hemodialysis started. Appreciate Nephrology input. dialysis again today (5) Chronic anemia: Code(s): D64.9 - Anemia, unspecified Status: Acute Assessment and Plan: Patient with chronic anemia with history of multiple blood transfusions. EGD and colonoscopy approximately 7 years ago reportedly showed no significant findings. Suspect acute anemia from unclear etiology. Consider hemolysis. LDH 956. Hemoccult negative from NG output. Hgb 9.4 this morning. Continue to monitor (6) Metabolic acidosis: Code(s): E87.2 - Acidosis Status: Acute Assessment and Plan: Secondary to renal failure. No evidence of DKA and lactic acid level normal. She was treated with sodium bicarbonate. Resolved with HD. (7) Pancytopenia: Code(s): D61.818 - Other pancytopenia Status: Acute Assessment and Plan: Etiology not clear but could be acute vs acute/chronic. Viral illnesses can cause pancytopenia. WBC better probably related to the steroids. Plt count climbing slowly. Hgb better at 9.4 now. Hematology following and appreciate their input (8) Type 2 diabetes mellitus: Code(s): E11.9 - Type 2 diabetes mellitus without complications Status: Acute Assessment and Plan: A1c 5.1% but possibly falsely low due to the anemia. Diabetes historically has been poorly controlled but family state improved glycemic control more recently. The patient's blood glucose was reviewed on 05/24/20. Glucose remains reasonably well controlled. Continue AccuCheks covering with sliding scale. Hypoglycemi
[2020-05-24 18:53] LABS: Glucose Point of Care 114 (65-105)
[2020-05-24 20:03] LABS: Complement Total CH50 58 U/mL (31-60)
[2020-05-24 23:30] LABS: Kappa\\Lambda Light Chains 1.75 (0.26-1.65)
[2020-05-24 23:31] LABS: Glucose Point of Care 124 (65-105)
[2020-05-25] VITALS (15 sets, daily range): BP systolic 152–182; BP diastolic 67–93; PULSE 62–98; RESP 15–23; TEMP 36.4–36.9; O2SAT 91–100
[2020-05-25] MEDS: hydrALAZINE HCL 20 MG/ML VIAL IV PUSH ×3 (02:16→22:05)
[2020-05-25 02:35] LABS: Glucose Point of Care 151 (65-105)
[2020-05-25 05:20] LABS: Basophils Percent Auto 0.2 % (0.2-1.2); Hematocrit 26.5 % (37.0-47.0); Hemoglobin 8.9 g/dL (12.0-15.0); Immature Granulocyte Absolute 0.15 K/mm3 (0.00-0.031); Immature Granulocyte Percent A 1.6 % (0-0.5); Immature Platelet Fraction Pct 2.4 % (0.9-11.2); Lymphocytes Absolute Auto 0.12 K/mm3 (0.9-3.2); Lymphocytes Percent Auto 1.3 % (18.3-44.2); Mean Corpuscular HGB Conc 33.6 g/dl (32-36); Mean Corpuscular Volume 92.3 fl (80-100); Mean Platelet Volume 11.5 fl (7.4-10.4); Monocytes Absolute Auto 0.1 K/mm3 (0.1-0.6); Monocytes Percent Auto 1.4 % (2.6-8.5); Neutrophils Absolute Auto 8.7 K/mm3 (1.3-6.7); Neutrophils Percent Auto 95.5 % (45.5-73.1); Nucleated Red Blood Cells Perc 0.3 % (0.0-0.2); Platelet Count Result 71 k/mm3 (150-375); Red Blood Count 2.87 M/mm3 (4.2-5.4); Red Cell Distribution Width 14.7 % (11.5-14.5); White Blood Count 9.1 K/mm3 (4.5-10.0)
[2020-05-25 05:28] LABS: INR 1.2; Prothrombin Time 14.4 Seconds (11.1-14.7)
[2020-05-25 05:29] LABS: Partial Thromboplastin Time 35.1 SECONDS (22.3-36.8)
[2020-05-25 05:32] LABS: D Dimer 3.47 ug/mL (<0.48)
[2020-05-25 05:53] LABS: Lactic Acid 0.7 mmol/L (0.7-2.1)
[2020-05-25 05:58] LABS: Alanine Aminotransferase 25 U/L (4-35); Albumin Level 2.5 g/dL (3.5-5.1); Alkaline Phosphatase 99 U/L (38-126); Anion Gap 6 mmol/L (8-16); Aspartate Amino Transferase 59 U/L (14-36); Bilirubin,Total 0.7 mg/dL (0.2-1.3); Blood Urea Nitrogen 30 mg/dL (7-17); CRP 3.5 mg/dL (<1.0); Calcium 7.7 mg/dL (8.4-10.2); Carbon Dioxide 30 mmol/L (22-30); Chloride 99 mmol/L (98-107); Estimated CRCL calculation 15 ml/min; Estimated Glomerular Filt Rate 12; Glucose 144 mg/dL (65-105); Lactate Dehydrogenase 1319 U/L (313-618); Magnesium 1.8 mg/dL (1.6-2.3); Phosphorus 1.9 mg/dL (2.5-4.5); Potassium 3.5 mmol/L (3.4-5.0); Sodium 135 mmol/L (137-145)
[2020-05-25] MEDS: PANTOPRAZOLE SODIUM IV 40 MG VIAL IV PUSH ×2 (08:28→22:05)
[2020-05-25] MEDS: INSULIN GLARGINE (*BKC) 100 UNITS/ML 10 UNITS SUB-Q (08:46)
--- NOTE | 2020-05-25 09:45 | WPDINTPN ---
Progress Note: A&P Assessment and Plan (1) Acute respiratory failure: Qualifiers: Respiratory failure complication: unspecified whether with hypoxia or hypercapnia Qualified Code(s): J96.00 - Acute respiratory failure, unspecified whether with hypoxia or hypercapnia Code(s): J96.00 - Acute respiratory failure, unspecified whether with hypoxia or hypercapnia Status: Acute Assessment and Plan: respiratory failure secondary to pneumonia secondary to COVID-19, possible heart failure, volume overload - 05/24- extubated after a successful weaning trial - saturating well on nasal cannula - IS and out of bed/ up in chair today (2) Shock: Code(s): R57.9 - Shock, unspecified Status: Acute Assessment and Plan: RESOLVED: on admission patient was in a state of shock with bradycardic, likely related to severe metabolic acidosis, briefly requiring dopamine for blood pressure support and vasopressor support - once she received her dialysis, dopamine was turned off - blood pressure is elevated, restarted Coreg - blood and urine cultures are negative - ceftriaxone and azithromycin was discontinued by Infectious Disease - bilateral lower extremity venous Dopplers 05/20/2020 was negative for DVT bilaterally (3) COVID-19: Code(s): U07.1 - COVID-19 Status: Acute Assessment and Plan: patient positive for COVID-19, has not been feeling well for the last 10-14 days, - did not receive Remdesivir due to late presentation and renal failure - appreciate infectious disease evaluation recommendation. - continue dexamethasone for 10 days - Patient did receive a unit of convalescent plasma on 05/20/2020 - continue droplet, airborne and contact isolation/precautions - monitor inflammatory markers (4) Acute kidney injury superimposed on chronic kidney disease: Code(s): N17.9 - Acute kidney failure, unspecified; N18.9 - Chronic kidney disease, unspecified Status: Acute Assessment and Plan: patient has a history of chronic kidney disease stage 4 and had been told that she may be requiring dialysis at some point - her creatinine on admission was 13.5 with severe metabolic acidosis with a pH of 7.059 and a bicarb of 5.8 - emergent Logan dialysis catheter was inserted in the right subclavian vein and patient received her 1st dialysis on 05/19/2020 - appreciate nephrology following the patient, dialysis per Nephrology - renal ultrasound 05/20/2020 showing medical renal disease - Hemodialysis session was done yesterday - monitor electrolytes. replace low potassium and phosphate (5) Pancytopenia: Code(s): D61.818 - Other pancytopenia Status: Acute Assessment and Plan: patient with pancytopenia - has a history of chronic anemia - pancytopenia could be related to bone marrow issue secondary to uremia, DIC - appreciates the Hematology/Oncology evaluation recommendations. - Patient received a total of 2 units of FFP and 2 units of packed RBCs since admission along with 1 unit of convalescent plasma for COVID-19 - patient to receive Epogen and Venofer - [id number] activity in normal range - hemoglobin stable and platelet count is improving (6) Type 2 diabetes mellitus: Code(s): E11.9 - Type 2 diabetes mellitus without complications Status: Acute Assessment and Plan: patient with history of type 2 diabetes, continue sliding scale insulin Accu-Cheks - patient on steroids, will monitor blood sugars closely - hemoglobin A1c is 5.1 this admission - Since patient is off tube feeds I will decrease Lantus dose (7) CHF (congestive heart failure): Qualifiers: Heart failure chronicity: unspecified Heart failure type: unspecified Qualified Code(s): I50.9 - Heart failure, unspecified Code(s): I50.9 - Heart failure, unspecified Status: Acute Assessment and Plan: patient with history of congestive he
[2020-05-25 10:19] LABS: Glucose Point of Care 121 (65-105)
--- NOTE | 2020-05-25 11:18 | PCFNICU ---
ICU Rounding Note: Pt current nutrition is NPO at this time. Nutrition recommendation: Agree with current recommendations. Recommend continuing tube feeds if patient unable to pass swallow evaluation. Last recorded weight is 67.5 kg. Bowel Motility: last bowel movement reported on 05/25/20 Labs Reviewed: Hgb (8.9) Hct (26.5) Alb (2.5) Na (135) GFR (12) BUN (30) Cr (3.9) Glu (144) Meds Noted: Novolog, Lantus, Versed, Albumin, Retacrit, Decadron, Fentanyl, Protonix Additional Notes: Right neck incision present without reported pressure ulcers. Right cheek bruise and groin puncture also present. Patient was extubated on 05/24/20. swallow evaluation scheduled for 05/25/20. Following daily in ICU rounds. Assessing/reassessing Saturday/Saturday.
--- NOTE | 2020-05-25 12:33 | PCNSR ---
On 05/25/20, the student, Garo Maldonado, provided care and [facility]. I have reviewed the student's documentation and agree with the findings.
--- NOTE | 2020-05-25 13:06 | WPDINFPN2 ---
Progress Note: A&P Assessment and Plan (1) COVID-19: Code(s): U07.1 - COVID-19 Status: Acute Assessment and Plan: 1. Hypoxemia and lung infiltrates due to CoVid viral pneumonia, improving status. 2. CRI with worsening 3. DM and hyperglycemia, at least in part due to steroid REC Dexamethasone # / . Plasma given 05/20. There is no remdesivir safety nor dosing data for CrCl <30 cc/min, so it is contra-indicated. Off antibacterials. Will sign off, thanks Subjective Date/time seen: 05/25/20 13:06 Interval history: opens eyes, lethargic. Femoral line and pedraza out Exam Narrative: Exam Narrative: afebrile. Extubated, on NC O2 Const: General: no acute distress Neck: Neck: supple and no JVD Resp: Effort & Inspection: normal respiratory effort Auscultation: clear to auscultation bilaterally and rales Cardio: Rate: regular rate Rhythm: regular rhythm Heart sounds: no murmurs GI: Inspection: non-distended GI Palp: Yes Soft to palpation and No Tenderness to palpation present (GI) Percussion: Yes normal to percussion Skin: General skin exam: no rashes or lesions noted Objective Data Vital Signs Vital Signs: Vital Signs - 24 hr 05/24/20 13:26 05/24/20 14:00 05/24/20 15:10 Temperature 36.6 C Pulse Rate 75 74 Respiratory Rate 15 Blood Pressure 149/75 H Pulse Oximetry 95 95 94 05/24/20 16:00 05/24/20 18:00 05/24/20 20:00 Temperature 37.3 C 37.2 C 37.2 C Pulse Rate 83 83 84 Respiratory Rate 19 16 22 H Blood Pressure 165/81 H 172/90 H 170/78 H Pulse Oximetry 93 96 95 05/24/20 20:03 05/24/20 22:00 05/24/20 23:00 Temperature Pulse Rate 80 82 Respiratory Rate 18 23 H Blood Pressure 176/80 H 158/82 H Pulse Oximetry 96 05/25/20 00:00 05/25/20 02:00 05/25/20 03:00 Temperature 36.9 C Pulse Rate 83 92 Respiratory Rate 18 21 H Blood Pressure 166/76 H 182/83 H 154/67 H Pulse Oximetry 98 98 05/25/20 04:00 05/25/20 06:00 05/25/20 08:00 Temperature 36.6 C 36.4 C L Pulse Rate 95 98 97 Respiratory Rate 21 H 20 23 H Blood Pressure 155/72 H 161/85 H 175/85 H Pulse Oximetry 93 91 96 05/25/20 09:03 05/25/20 10:00 Temperature Pulse Rate 62 Respiratory Rate 18 Blood Pressure 167/78 H Pulse Oximetry 94 100 Intake/Output Intake/Output: Intake & Output 05/22/20 05/23/20 05/24/20 05/25/20 23:59 23:59 23:59 23:59 Intake Total 255 1025 855 240 Output Total 2150 200 2975 76 Balance -1895 825 -2120 164 Meds/Results Medications: Active Medications Generic Name Dose Route Start Last Admin Trade Name Freq PRN Reason Stop Dose Admin Acetaminophen 650 mg 05/19/20 16:00 Tylenol Tablet PO Q4H PRN Mild Pain (1-3) or Fever Amlodipine Besylate 5 mg 05/22/20 11:30 05/25/20 08:26 Norvasc PO Not Given QAM CHAVA Carvedilol 25 mg 05/21/20 10:03 05/25/20 08:27 Coreg PO Not Given Q12HR CHAVA Dexamethasone Sodium Phosphate 6 mg 05/20/20 00:30 05/25/20 08:27 Decadron 10 Mg/Ml Inj IV PUSH 05/28/20 09:01 6 mg DAILY CHAVA Administration Dextrose 12.5 gm 05/19/20 22:01 05/20/20 06:54 Dextrose 50% Syringe IV PUSH 12.5 gm PRN PRN Administration Hypoglycemia Protocol Glucagon 1 mg 05/19/20 22:01 Glucagon For Inj IM PRN PRN Hypoglycemia Protocol Glucose 15 gm 05/19/20 22:01 Glutose 15 PO PRN PRN Hypoglycemia Protocol Hydralazine HCl 20 mg 05/21/20 18:21 05/25/20 08:27 Apresoline Hcl Inj IV PUSH 20 mg Q4H PRN Administration Blood Pressure - High Dextrose 1,000 mls @ 100 mls/hr 05/19/20 22:01 Dextrose 5% 1,000 Ml IVPB PRN PRN Hypoglycemia Protocol Albumin Human 50 mls @ 999 mls/hr 05/22/20 10:11 Albutein IVPB 06/21/20 10:12 Q10M PRN HYPOTENSION Potassium Phosphate 20 mmol/ 256.6667 mls @ 64 mls/hr 05/25/20 13:00 Sodium Chloride IVPB 05/25/20 17:00 ONCE ONE Insulin Aspart 4 - 8 units 05/23/
[2020-05-25] MEDS: POTASSIUM PHOS,M-BASIC-D-BASIC 20 MMOL in SODIUM CHLORIDE 0.9% IV 250 ML 64 MMOL IVPB (13:18)
--- NOTE | 2020-05-25 13:43 | WPDONCPN ---
Progress Note: A/P - Additional Plan 1. Pancytopenia. Multifactorial anemia peaked at 9.6 after blood transfusion, dialysis with EPO and IV iron. Now down slightly at 8.9. Additionally, platelets stable in 70s (dima 51,000). WBC remains normal. Will continue to monitor. Suspect was related to DIC sepsis in setting of COVID-19 infection. Stepdown planned and now extubated. 2. Coagulopathy. s/p 3U of FFP. PTT is normal. [id number] testing was normal. 3. Acute on chronic kidney disease. Patient on dialysis currently with EPO injection. Cr continues to trend downward, now 3.9. - Time Spent With Patient Total time spent is greater than 50% in coordination of care (as documented) at patient's floor/unit and/or counseling patient: less than 15 minutes (Chart reviewed) Subjective Interval history: 44 yo female who is now extubated since yesterday and tolerating low flow O2 per NC. She presented with n/v and headaches, found to be COVID-19 positive according to her medical record. Hematology workup to date favors coagulopathy r/t DIC sepsis and WARREN. She has had IV iron and remains on dialysis with concurrent EPO. She has been transfused with 2U PRBCs, 3U FFP and 1U of convalescent plasma for COVID-19 infection. Review of Systems - Review of Systems unobtainable due to medical condition (COVID infection, chart reviewed and current status was d/w Ashanti RN) Exam Narrative: Pt. grossly assessed outside of room by inspection and chart review. Asleep. - Constitutional no acute distress Comments: Given pt. COVID infection, able to participate in care with review of labs - Routine Respiratory Exam Absent: respiratory distress - Routine Cardiovascular Exam Cardiovascular: Present: RRR Comments: Per telemetry PN: Objective Data - Labs CBC & Chem 7: 05/25/20 05:04 05/25/20 05:04 Labs: Laboratory Results - last 24 hr 05/19/20 05/19/20 05/24/20 19:18 19:18 14:16 WBC RBC Hgb Hct MCV MCH MCHC RDW Plt Count MPV Immature Gran % (Auto) Neut % (Auto) Lymph % (Auto) [place] % (Auto) Eos % (Auto) Baso % (Auto) Lymph # (Auto) [place] # (Auto) Eos # (Auto) Baso # (Auto) Abs Immat Gran (auto) Absolute Neuts (auto) Absolute Nucleated RBC Nucleated RBC % % Immature Plt Fraction PT INR APTT D-Dimer Puncture Site Left radial ABG pH 7.517 H* ABG pCO2 34.1 L ABG pO2 56.1 L ABG PO2/FiO2 Ratio 1.87 ABG HCO3 27.0 H ABG O2 Saturation 92.2 L ABG O2 Content 14.0 L ABG Base Excess 4.2 A-a Gradient 117.7 Oxyhemoglobin 90.5 Total Hemoglobin 11.0 L O2 Delivery Device Ventilator O2 Liters/Min Not Reportable Minute Volume Not Reportable Vent Rate Not Reportable Vent Mode Spontaneous FiO2 30 Tidal Volume Not Reportable PEEP 5 Peak Inspir Pressure Not Reportable Pressure Support 5 Sodium Potassium Chloride Carbon Dioxide Anion Gap BUN Creatinine Estim Creat Clear Calc Estimated GFR Glucose POC Capillary Glucose Lactic Acid Calcium Phosphorus Magnesium Ferritin Total Bilirubin AST ALT Alkaline Phosphatase Lactate Dehydrogenase C-Reactive Protein Total Protein Albumin Serum Immunofixation see below BOBO Screen Negative Tot Complement (CH50) 58 [place]/Lambda Ratio 1.75 H Free [place] Light Chains 314.0 H Free [place] Light Chain 179.0 H 05/24/20 05/24/20 05/25/20 17:42 22:05 02:13 WBC RBC Hgb Hct MCV MCH MCHC RDW Plt Count MPV Immature Gran % (Auto) Neut % (Auto) Lymph % (Auto) [place] % (Auto) Eos % (Auto) Baso % (Auto) Lymph # (Auto) [place] # (Auto) Eos # (Auto) Baso # (Auto) Abs Immat Gran (auto) Absolute Neuts (auto) Absolute Nucleated RBC Nucleated RBC % % Immature Plt Fr
[2020-05-25 13:56] LABS: Glucose Point of Care 104 (65-105)
--- NOTE | 2020-05-25 16:49 | P.PNNP_ITS ---
Progress Note: A&P Assessment and Plan (1) [id number] renal failure: Code(s): N17.9 - Acute kidney failure, unspecified; N18.9 - Chronic kidney disease, unspecified Status: Acute Assessment and Plan: * apparently had advanced chronic kidney disease at baseline - according to my conversation with daughter, her GFR was ~ 25% in Nov 2019 (stage IV CKD) - renal ultrasound with increased parenchymal echogenicity consistent with chronic kidney disease - nephrotic range proteinuria/nephrotic syndrome seems apparent - likely has diabetic nephropathy * follow-up on pending testing * HD tomorrow * follow electrolytes, volume status, and clearance * follow replete labs and UOP for possible renal recovery * given history and evidence to date, there is a possibility that patient may now be dialysis dependent... (2) COVID-19: Code(s): U07.1 - COVID-19 Status: Acute Assessment and Plan: * tested positive * had not been feeling well 2 weeks prior to admission * apparently not a candidate for Remdesivir * Infectious Disease following * getting 10 day course of dexamethasone * s/p a unit of convalescent plasma (on 05/20/2020) * remains of droplet, airborne and contact isolation/precautions * trend inflammatory markers (3) Acute respiratory failure: Qualifiers: Respiratory failure complication: unspecified whether with hypoxia or hypercapnia Qualified Code(s): J96.00 - Acute respiratory failure, unspecified whether with hypoxia or hypercapnia Code(s): J96.00 - Acute respiratory failure, unspecified whether with hypoxia or hypercapnia Status: Acute Assessment and Plan: * due acute illness * extubated (resolved) * follow respiratory status closely (4) Hypotension: Code(s): I95.9 - Hypotension, unspecified Status: Acute Assessment and Plan: * some component of shock on admission * briefly on dopamine which has since been weaned off * follow trend of hemodynamics (5) Metabolic acidosis: Code(s): E87.2 - Acidosis Status: Acute Assessment and Plan: * quite severe on admission * corrected with dialytic intervention * follow trend (6) Anemia: Code(s): D64.9 - Anemia, unspecified Status: Acute Assessment and Plan: * somewhat of a chronic issue by history * has required multiple PRBC transfusion in the past * anemia studies suggest signifcant iron deficiency * suspect ALBERTINA, CKD, and acute illness playing a role * pancytopenia contributing as well (Hem/Onc following) * getting IV iron * Epogen with HD * follow H/H (7) Hypocalcemia: Code(s): E83.51 - Hypocalcemia Status: Acute Assessment and Plan: * presumably due to renal failure * attempting correct with dialysis (8) Diabetes: Code(s): E11.9 - Type 2 diabetes mellitus without complications Status: Acute Assessment and Plan: * follow accuchecks * on SSI Long and extensive discussion with daughter Bhavna by phone (> 20 minutes) regard her mother's renal dysfunction, dialysis, possible renal recovery....etc. Will continue to follow. Subjective Date/time seen: 05/25/20 16:49 Extubated successfully yesterday and respiratory status relatively stable at this time; tolerated dialysis yesterday as well with no significant issues or problems; no apparent distress voiced on my visit. Exam Narrative: Exam Narrative: General: WD/WN female in
--- NOTE | 2020-05-25 16:49 | PM.PNNEP ---
Progress Note: A&P Assessment and Plan (1) [id number] renal failure: Code(s): N17.9 - Acute kidney failure, unspecified; N18.9 - Chronic kidney disease, unspecified Status: Acute Assessment and Plan: apparently had advanced chronic kidney disease at baseline - according to my conversation with daughter, her GFR was ~ 25% in Nov 2019 (stage IV CKD) - renal ultrasound with increased parenchymal echogenicity consistent with chronic kidney disease - nephrotic range proteinuria/nephrotic syndrome seems apparent - likely has diabetic nephropathy follow-up on pending testing HD tomorrow follow electrolytes, volume status, and clearance follow replete labs and UOP for possible renal recovery given history and evidence to date, there is a possibility that patient may now be dialysis dependent... (2) COVID-19: Code(s): U07.1 - COVID-19 Status: Acute Assessment and Plan: tested positive had not been feeling well 2 weeks prior to admission apparently not a candidate for Remdesivir Infectious Disease following getting 10 day course of dexamethasone s/p a unit of convalescent plasma (on 05/20/2020) remains of droplet, airborne and contact isolation/precautions trend inflammatory markers (3) Acute respiratory failure: Qualifiers: Respiratory failure complication: unspecified whether with hypoxia or hypercapnia Qualified Code(s): J96.00 - Acute respiratory failure, unspecified whether with hypoxia or hypercapnia Code(s): J96.00 - Acute respiratory failure, unspecified whether with hypoxia or hypercapnia Status: Acute Assessment and Plan: due acute illness extubated (resolved) follow respiratory status closely (4) Hypotension: Code(s): I95.9 - Hypotension, unspecified Status: Acute Assessment and Plan: some component of shock on admission briefly on dopamine which has since been weaned off follow trend of hemodynamics (5) Metabolic acidosis: Code(s): E87.2 - Acidosis Status: Acute Assessment and Plan: quite severe on admission corrected with dialytic intervention follow trend (6) Anemia: Code(s): D64.9 - Anemia, unspecified Status: Acute Assessment and Plan: somewhat of a chronic issue by history has required multiple PRBC transfusion in the past anemia studies suggest signifcant iron deficiency suspect LABERTINA, CKD, and acute illness playing a role pancytopenia contributing as well (Hem/Onc following) getting IV iron Epogen with HD follow H/H (7) Hypocalcemia: Code(s): E83.51 - Hypocalcemia Status: Acute Assessment and Plan: presumably due to renal failure attempting correct with dialysis (8) Diabetes: Code(s): E11.9 - Type 2 diabetes mellitus without complications Status: Acute Assessment and Plan: follow accuchecks on SSI Long and extensive discussion with daughter Bhavna by phone (> 20 minutes) regard her mother's renal dysfunction, dialysis, possible renal recovery....etc. Will continue to follow. Subjective Date/time seen: 05/25/20 16:49 Extubated successfully yesterday and respiratory status relatively stable at this time; tolerated dialysis yesterday as well with no significant issues or problems; no apparent distress voiced on my visit. Exam Narrative: Exam Narrative: General: WD/WN female in NAD Heart: normal S1 and S2; no rub Lungs: diminished throughout Abdomen: soft, nontender, nondistended, positive bowel sounds Extremities: no cyanosis or clubbing; 1+ edema Skin: no nodules Objective Data Vital Signs Vital Signs: Vital Signs Temp Pulse Resp BP Pulse Ox 05/25/20 12:00 36.6 C 91 20 152/79 H 99 05/25/20 10:00 62 18 167/78 H 100 05/25/20 09:03 94 05/25/20 08:00 36.4 C L 97 23 H 175/85 H 96 05/25/20 06:00 98 20 161/85 H 91
--- NOTE | 2020-05-25 17:00 | PM.IMPN ---
Progress Note: A&P Assessment and Plan (1) Acute respiratory failure: Qualifiers: Respiratory failure complication: unspecified whether with hypoxia or hypercapnia Qualified Code(s): J96.00 - Acute respiratory failure, unspecified whether with hypoxia or hypercapnia Code(s): J96.00 - Acute respiratory failure, unspecified whether with hypoxia or hypercapnia Status: Acute Assessment and Plan: Patient extubated pm 05/14 and doing well with NC. . Related to COVID pneumonia. Chest x-ray reviewed 05/23 showing improvement in the extensive bilateral pulmonary infiltrates related to COVID and probably pulmonary edema from her renal failure. Continue HD for fluid managment (2800 ml off 05/24).. (2) Septic shock: Code(s): A41.9 - Sepsis, unspecified organism; R65.21 - Severe sepsis with septic shock Status: Acute Assessment and Plan: Patient with hypotension secondary to sepsis and hypovolemia. Patient also with hypothermic on admission with bradycardia and leukopenia. Patient required dopamine briefly but this was weaned off in the transport operations inspector hours on 05/20/20. Blood pressure has since remained stable and actually now elevated. Blood products have helped improved perfusion. (3) COVID-19: Code(s): U07.1 - COVID-19 Status: Acute Assessment and Plan: Chest x-ray reviewed today showing persistent bilateral pulmonary infiltrates. COVID positive. . Continue Dexamethasone.(04/22) Remdesivir held due to her renal failure. (4) Acute kidney injury superimposed on chronic kidney disease: Code(s): N17.9 - Acute kidney failure, unspecified; N18.9 - Chronic kidney disease, unspecified Status: Acute Assessment and Plan: Patient has CKD stage 4. Creatinine 13.5 on admission. Worsening renal function related to hypotension from hypovolemia and sepsis from COVID. Logan catheter placed 05/19/20 and hemodialysis started. Appreciate Nephrology input. dialysis again 05/26 (5) Chronic anemia: Code(s): D64.9 - Anemia, unspecified Status: Acute Assessment and Plan: Patient with chronic anemia with history of multiple blood transfusions. EGD and colonoscopy approximately 7 years ago reportedly showed no significant findings. Suspect acute anemia from unclear etiology. . LDH 956. Hemoccult negative from NG output. Hgb 8.9 again this morning. Continue to monitor has received 2 units of packed cells, 3 units of FFP, and 1 unit of convalescent plasma (6) Metabolic acidosis: Code(s): E87.2 - Acidosis Status: Acute Assessment and Plan: Secondary to renal failure. No evidence of DKA and lactic acid level normal. She was treated with sodium bicarbonate. Resolved with HD. (7) Pancytopenia: Code(s): D61.818 - Other pancytopenia Status: Acute Assessment and Plan: Etiology not clear but could be acute vs acute/chronic. Viral illnesses can cause pancytopenia. WBC better probably related to the steroids. Plt count steady at 70K . Hgb better at 8.9 and stable. Hematology following and appreciate their input (8) Type 2 diabetes mellitus: Code(s): E11.9 - Type 2 diabetes mellitus without complications Status: Acute Assessment and Plan: A1c 5.1% but possibly falsely low due to the anemia. Diabetes historically has been poorly controlled but family state improved glycemic control more recently. The patient's blood glucose was reviewed on 05/25/20. Glucose remains reasonably well controlled. Continue AccuCheks covering with sliding scale. Hypoglycemia protocol available as neede
[2020-05-25 20:57] LABS: Glucose Point of Care 107 (65-105)
[2020-05-25] MEDS: carvediloL 25 MG TABLET PO (22:05)
[2020-05-25 23:23] LABS: Glucose Point of Care 107 (65-105)
[2020-05-26] VITALS (26 sets, daily range): BP systolic 124–179; BP diastolic 61–95; PULSE 70–84; RESP 18–28; TEMP 36–37.1; O2SAT 90–95
[2020-05-26] MEDS: DEXTROSE 50% 25 GM/50 ML SYRINGE IV PUSH ×2 (03:22→09:32)
[2020-05-26 04:23] LABS: Glucose Point of Care 50 (65-105)
[2020-05-26 04:23] LABS: Glucose Point of Care 158 (65-105)
[2020-05-26] MEDS: hydrALAZINE HCL 20 MG/ML VIAL IV PUSH (06:24)
[2020-05-26] MEDS: carvediloL 25 MG TABLET PO ×2 (09:38→22:29)
[2020-05-26] MEDS: PANTOPRAZOLE SODIUM IV 40 MG VIAL IV PUSH ×2 (09:38→22:31)
[2020-05-26] MEDS: amLODIPine BESYLATE 5 MG TABLET PO (09:38)
--- NOTE | 2020-05-26 10:56 | PCDIET ---
Nutrition Follow-Up Complete: Nutrition Diagnosis: Inadequate energy intake related to mechanical vent as related evidenced by NPO Nutrition Goal: Meet estimated nutritional needs. Goal in progress. Patient now on minced and moist diet following CALIBRATION ENGINEER evaluation on 05/25/20. Patient consumed 50% of dinner last night but has not yet eaten today. Recommend adding Nepro 1x daily (425kcal, 19g protein) and monitoring. Would not recommend diet restrictions until intakes consistently meeting needs. Last recorded weight is 65.8 kg which is down from last review. Plan for dialysis today. Bowel Motility: BM x 1 on 05/23/20. Labs Reviewed: Glu (158) Meds Noted: Albumin, Retacrit, Protonix, Decadron, Novolog, Lantus Additional Notes: No pressure sores. Will continue to monitor with same goal. Nutrition Monitoring and evaluation: Follow up every 5 days.
[2020-05-26 11:03] LABS: Glucose Point of Care 48 (65-105)
[2020-05-26 11:03] LABS: Glucose Point of Care 109 (65-105)
[2020-05-26 14:46] LABS: Glucose Point of Care 109 (65-105)
--- NOTE | 2020-05-26 17:07 | PM.IMPN ---
Progress Note: A&P Assessment and Plan (1) Acute respiratory failure: Qualifiers: Respiratory failure complication: unspecified whether with hypoxia or hypercapnia Qualified Code(s): J96.00 - Acute respiratory failure, unspecified whether with hypoxia or hypercapnia Code(s): J96.00 - Acute respiratory failure, unspecified whether with hypoxia or hypercapnia Status: Acute Assessment and Plan: Patient extubated pm 05/24 and doing well with NC. . Related to COVID pneumonia. Chest x-ray reviewed 05/23 showing improvement in the extensive bilateral pulmonary infiltrates related to COVID and probably pulmonary edema from her renal failure. Continue HD for fluid managment (2800 ml off 05/24)..Repeat dialysis today and chest xray 05/27 (2) Septic shock: Code(s): A41.9 - Sepsis, unspecified organism; R65.21 - Severe sepsis with septic shock Status: Acute Assessment and Plan: Patient with hypotension secondary to sepsis and hypovolemia. Patient also with hypothermic on admission with bradycardia and leukopenia. Patient required dopamine briefly but this was weaned off in the business administration instructor hours on 05/20/20. Blood pressure has since remained stable and actually now elevated. Blood products have helped improved perfusion. (3) COVID-19: Code(s): U07.1 - COVID-19 Status: Acute Assessment and Plan: Chest x-ray reviewed 05/23 showing persistent bilateral pulmonary infiltrates. COVID positive. . Continue Dexamethasone.(05/23) Remdesivir held due to her renal failure. (4) Acute kidney injury superimposed on chronic kidney disease: Code(s): N17.9 - Acute kidney failure, unspecified; N18.9 - Chronic kidney disease, unspecified Status: Acute Assessment and Plan: Patient has CKD stage 4. Creatinine 13.5 on admission. Worsening renal function related to hypotension from hypovolemia and sepsis from COVID. Logan catheter placed 05/19/20 and hemodialysis started. Appreciate Nephrology input. dialysis again today 05/26 (5) Chronic anemia: Code(s): D64.9 - Anemia, unspecified Status: Acute Assessment and Plan: Patient with chronic anemia with history of multiple blood transfusions. EGD and colonoscopy approximately 7 years ago reportedly showed no significant findings. Suspect acute anemia from unclear etiology. . LDH 956. Hemoccult negative from NG output. . Continue to monitor has received 2 units of packed cells, 3 units of FFP, and 1 unit of convalescent plasma (6) Metabolic acidosis: Code(s): E87.2 - Acidosis Status: Acute Assessment and Plan: Secondary to renal failure. No evidence of DKA and lactic acid level normal. She was treated with sodium bicarbonate. Resolved with HD. (7) Pancytopenia: Code(s): D61.818 - Other pancytopenia Status: Acute Assessment and Plan: Etiology not clear but could be acute vs acute/chronic. Viral illnesses can cause pancytopenia. WBC better probably related to the steroids. Plt count steady at 70K . Hgb better at 8.9 and stable. Hematology following (8) Type 2 diabetes mellitus: Code(s): E11.9 - Type 2 diabetes mellitus without complications Status: Acute Assessment and Plan: A1c 5.1% but possibly falsely low due to the anemia. Diabetes historically has been poorly controlled but family state improved glycemic control more recently. The patient's blood glucose was reviewed on 05/25/20. Glucose remains reasonably well controlled. Continue AccuCheks covering with sliding scale. Hypoglycemia protocol available as needed. Co
[2020-05-26 17:45] LABS: Glucose Point of Care 119 (65-105)
--- NOTE | 2020-05-26 19:15 | P.PNNP_ITS ---
Progress Note: A&P Assessment and Plan (1) Qpsbq-[id number] renal failure: Code(s): N17.9 - Acute kidney failure, unspecified; N18.9 - Chronic kidney disease, unspecified Status: Acute Assessment and Plan: * apparently had advanced chronic kidney disease at baseline - according to my conversation with daughter, her GFR was ~ 25% in Nov 2019 (stage IV CKD) - renal ultrasound with increased parenchymal echogenicity consistent with chronic kidney disease - nephrotic range proteinuria/nephrotic syndrome seems apparent - likely has diabetic nephropathy * follow-up on pending testing * HD today * follow electrolytes, volume status, and clearance * follow replete labs and UOP for possible renal recovery * given history and evidence to date, there is a possibility that patient may now be dialysis dependent... (2) COVID-19: Code(s): U07.1 - COVID-19 Status: Acute Assessment and Plan: * tested positive * had not been feeling well 2 weeks prior to admission * apparently not a candidate for Remdesivir * Infectious Disease following * getting 10 day course of dexamethasone * s/p a unit of convalescent plasma (on 05/20/2020) * remains of droplet, airborne and contact isolation/precautions * trend inflammatory markers (3) Acute respiratory failure: Qualifiers: Respiratory failure complication: unspecified whether with hypoxia or hypercapnia Qualified Code(s): J96.00 - Acute respiratory failure, unspecified whether with hypoxia or hypercapnia Code(s): J96.00 - Acute respiratory failure, unspecified whether with hypoxia or hypercapnia Status: Acute Assessment and Plan: * due acute illness * extubated (resolved) * follow respiratory status closely (4) Hypotension: Code(s): I95.9 - Hypotension, unspecified Status: Acute Assessment and Plan: * some component of shock on admission * briefly on dopamine which has since been weaned off * follow trend of hemodynamics (acutually a bit hypertensive now -- reassess after ultrafiltration with dialysis today) (5) Metabolic acidosis: Code(s): E87.2 - Acidosis Status: Acute Assessment and Plan: * quite severe on admission * corrected with dialytic intervention * follow trend (6) Anemia: Code(s): D64.9 - Anemia, unspecified Status: Acute Assessment and Plan: * somewhat of a chronic issue by history * has required multiple PRBC transfusion in the past * anemia studies suggest signifcant iron deficiency * suspect ALBERTINA, CKD, and acute illness playing a role * pancytopenia contributing as well (Hem/Onc following) * getting IV iron * Epogen with HD * follow H/H (7) Hypocalcemia: Code(s): E83.51 - Hypocalcemia Status: Acute Assessment and Plan: * presumably due to renal failure * attempting correct with dialysis (8) Diabetes: Code(s): E11.9 - Type 2 diabetes mellitus without complications Status: Acute Assessment and Plan: * follow accuchecks * on SSI Will continue to follow. Subjective Date/time seen: 05/26/20 19:15 Tolerating dialysis at the time of my visit (seen on HD at ~ 7:00PM); appears to be doing reasonably well; no reported issues or problems overnight or earlier today per nursing. Exam Narrative: Exam Narrative: General: WD/WN female in NAD Heart: normal S1 and S2; no rub Lungs: diminished throughout Abdomen: soft, nontender
--- NOTE | 2020-05-26 19:15 | PM.PNNEP ---
Progress Note: A&P Assessment and Plan (1) [id number]-yrkvnhz renal failure: Code(s): N17.9 - Acute kidney failure, unspecified; N18.9 - Chronic kidney disease, unspecified Status: Acute Assessment and Plan: apparently had advanced chronic kidney disease at baseline - according to my conversation with daughter, her GFR was ~ 25% in Nov 2019 (stage IV CKD) - renal ultrasound with increased parenchymal echogenicity consistent with chronic kidney disease - nephrotic range proteinuria/nephrotic syndrome seems apparent - likely has diabetic nephropathy follow-up on pending testing HD today follow electrolytes, volume status, and clearance follow replete labs and UOP for possible renal recovery given history and evidence to date, there is a possibility that patient may now be dialysis dependent... (2) COVID-19: Code(s): U07.1 - COVID-19 Status: Acute Assessment and Plan: tested positive had not been feeling well 2 weeks prior to admission apparently not a candidate for Remdesivir Infectious Disease following getting 10 day course of dexamethasone s/p a unit of convalescent plasma (on 05/20/2020) remains of droplet, airborne and contact isolation/precautions trend inflammatory markers (3) Acute respiratory failure: Qualifiers: Respiratory failure complication: unspecified whether with hypoxia or hypercapnia Qualified Code(s): J96.00 - Acute respiratory failure, unspecified whether with hypoxia or hypercapnia Code(s): J96.00 - Acute respiratory failure, unspecified whether with hypoxia or hypercapnia Status: Acute Assessment and Plan: due acute illness extubated (resolved) follow respiratory status closely (4) Hypotension: Code(s): I95.9 - Hypotension, unspecified Status: Acute Assessment and Plan: some component of shock on admission briefly on dopamine which has since been weaned off follow trend of hemodynamics (acutually a bit hypertensive now -- reassess after ultrafiltration with dialysis today) (5) Metabolic acidosis: Code(s): E87.2 - Acidosis Status: Acute Assessment and Plan: quite severe on admission corrected with dialytic intervention follow trend (6) Anemia: Code(s): D64.9 - Anemia, unspecified Status: Acute Assessment and Plan: somewhat of a chronic issue by history has required multiple PRBC transfusion in the past anemia studies suggest signifcant iron deficiency suspect ALBERTINA, CKD, and acute illness playing a role pancytopenia contributing as well (Hem/Onc following) getting IV iron Epogen with HD follow H/H (7) Hypocalcemia: Code(s): E83.51 - Hypocalcemia Status: Acute Assessment and Plan: presumably due to renal failure attempting correct with dialysis (8) Diabetes: Code(s): E11.9 - Type 2 diabetes mellitus without complications Status: Acute Assessment and Plan: follow accuchecks on SSI Will continue to follow. Subjective Date/time seen: 05/26/20 19:15 Tolerating dialysis at the time of my visit (seen on HD at ~ 7:00PM); appears to be doing reasonably well; no reported issues or problems overnight or earlier today per nursing. Exam Narrative: Exam Narrative: General: WD/WN female in NAD Heart: normal S1 and S2; no rub Lungs: diminished throughout Abdomen: soft, nontender, nondistended, positive bowel sounds Extremities: no cyanosis or clubbing; 1+ edema Skin: warm and dry Objective Data Vital Signs Vital Signs: Vital Signs Temp Pulse Resp BP Pulse Ox 05/26/20 16:00 37.1 C 81 25 H 173/76 H 91 05/26/20 10:00 95 05/26/20 08:00 36.6 C 82 22 H 179/75 H 91 05/26/20 06:00 80 22 H 93 05/26/20 04:00 36.3 C L 77 18 168/85 H 92 05/26/20 02:00 79 22 H 156/65 H 94 05/26/20 00:00 36.6 C 84 26 H 153/70 H 93 05/25/20 22:
[2020-05-26] MEDS: EPOETIN ALFA-EPBX 10,000 UNITS/ML VIAL 10000 UNITS IV PUSH ×2 (19:52→21:53)
[2020-05-26] MEDS: HEPARIN SODIUM 1,000 UNITS/ML VIAL 5000 UNITS (21:52)
[2020-05-26 23:03] LABS: Glucose Point of Care 139 (65-105)
[2020-05-27] VITALS: BP 153/80; PULSE 81; RESP 23; TEMP 36.6; O2SAT 96
[2020-05-27 02:16] LABS: Glucose Point of Care 172 (65-105)
[2020-05-27 05:31] LABS: Basophils Percent Auto 0.3 % (0.2-1.2); Hemoglobin 8.2 g/dL (12.0-15.0); Immature Granulocyte Absolute 0.07 K/mm3 (0.00-0.031); Immature Granulocyte Percent A 1.1 % (0-0.5); Lymphocytes Absolute Auto 0.11 K/mm3 (0.9-3.2); Lymphocytes Percent Auto 1.8 % (18.3-44.2); Mean Corpuscular HGB Conc 32.8 g/dl (32-36); Mean Corpuscular Hemoglobin 30.7 pg (26-34); Mean Corpuscular Volume 93.6 fl (80-100); Mean Platelet Volume 10.8 fl (7.4-10.4); Monocytes Absolute Auto 0.1 K/mm3 (0.1-0.6); Monocytes Percent Auto 1.6 % (2.6-8.5); Neutrophils Absolute Auto 5.9 K/mm3 (1.3-6.7); Neutrophils Percent Auto 95.2 % (45.5-73.1); Nucleated Red Blood Cells Perc 0.3 % (0.0-0.2); Platelet Count Result 76 k/mm3 (150-375); Red Blood Count 2.67 M/mm3 (4.2-5.4); Red Cell Distribution Width 14.9 % (11.5-14.5); White Blood Count 6.2 K/mm3 (4.5-10.0)
[2020-05-27 05:38] LABS: D Dimer 3.02 ug/mL (<0.48)
[2020-05-27 06:01] LABS: Anion Gap 6 mmol/L (8-16); Blood Urea Nitrogen 19 mg/dL (7-17); CRP 12.4 mg/dL (<1.0); Calcium 7.4 mg/dL (8.4-10.2); Carbon Dioxide 28 mmol/L (22-30); Chloride 100 mmol/L (98-107); Estimated CRCL calculation 21 ml/min; Estimated Glomerular Filt Rate 19; Glucose 145 mg/dL (65-105); Lactate Dehydrogenase 1530 U/L (313-618); Potassium 3.6 mmol/L (3.4-5.0); Sodium 134 mmol/L (137-145)
[2020-05-27 07:41] VITALS: O2SAT 90
[2020-05-27 08:00] VITALS: BP 136/79; PULSE 83; RESP 28; TEMP 36.6; O2SAT 91
[2020-05-27] MEDS: amLODIPine BESYLATE 5 MG TABLET 10 MG PO (10:14)
[2020-05-27] MEDS: carvediloL 25 MG TABLET PO ×2 (10:14→20:30)
[2020-05-27] MEDS: PANTOPRAZOLE SODIUM IV 40 MG VIAL IV PUSH ×2 (10:15→20:31)
[2020-05-27 13:04] LABS: Glucose Point of Care 244 (65-105)
--- NOTE | 2020-05-27 13:53 | WPDONCPN ---
Progress Note: A/P - Additional Plan 1. Pancytopenia. Multifactorial anemia peaked at 9.6 after blood transfusion, on HD with EPO and s/p IV iron x 3 doses. Emesis and stool guaiac neg. on 05/20 and 05/22, respectively. Hgb 8.2 currently. Additionally, platelets stable in 70s (dima 51,000). WBC remains normal. After review with Dr. Jarquin, continue to monitor. Suspect was related to DIC sepsis in setting of COVID-19 infection. 2. Coagulopathy. Resolved. s/p 3U of FFP. PTT normalized. [id number] testing was normal. 3. Acute on chronic kidney disease. Patient on dialysis currently with EPO injection. Cr continues to trend downward, now 2.7. - Time Spent With Patient Total time spent is greater than 50% in coordination of care (as documented) at patient's floor/unit and/or counseling patient: less than 15 minutes (Chart review only) Subjective Interval history: 44 yo female who is now extubated since 05/24 and now on higher flow O2, previously on 2-3 L post-extubation. COVID positive. Hematology workup to date favors coagulopathy r/t DIC sepsis, anemia of chronic disease, and WARREN. She has had IV iron and remains on dialysis with concurrent EPO. She has been transfused with 2U PRBCs, 3U FFP and 1U of convalescent plasma for COVID-19 infection. Chart reviewed today, patient not seen. Review of Systems - Review of Systems unobtainable due to medical condition (COVID+, chart reviewed) Exam Narrative: Deferred COVID+, chart reviewed. PN: Objective Data - Labs CBC & Chem 7: 05/27/20 05:07 05/27/20 05:07 Labs: Laboratory Results - last 24 hr 05/26/20 05/26/20 05/26/20 14:34 17:39 22:16 WBC RBC Hgb Hct MCV MCH MCHC RDW Plt Count MPV Immature Gran % (Auto) Neut % (Auto) Lymph % (Auto) Hendry % (Auto) Eos % (Auto) Baso % (Auto) Lymph # (Auto) Hendry # (Auto) Eos # (Auto) Baso # (Auto) Abs Immat Gran (auto) Absolute Neuts (auto) Absolute Nucleated RBC Nucleated RBC % D-Dimer Sodium Potassium Chloride Carbon Dioxide Anion Gap BUN Creatinine Estim Creat Clear Calc Estimated GFR Glucose POC Capillary Glucose 109 119 H 139 H Calcium Ferritin Lactate Dehydrogenase C-Reactive Protein 05/27/20 05/27/20 05/27/20 01:51 05:07 05:07 WBC RBC Hgb Hct MCV MCH MCHC RDW Plt Count MPV Immature Gran % (Auto) Neut % (Auto) Lymph % (Auto) Hendry % (Auto) Eos % (Auto) Baso % (Auto) Lymph # (Auto) Hendry # (Auto) Eos # (Auto) Baso # (Auto) Abs Immat Gran (auto) Absolute Neuts (auto) Absolute Nucleated RBC Nucleated RBC % D-Dimer 3.02 H Sodium Potassium Chloride Carbon Dioxide Anion Gap BUN Creatinine Estim Creat Clear Calc Estimated GFR Glucose POC Capillary Glucose 172 H Calcium Ferritin 934.00 H Lactate Dehydrogenase C-Reactive Protein 05/27/20 05/27/20 05/27/20 05:07 05:07 12:34 WBC 6.2 RBC 2.67 L Hgb 8.2 L Hct 25.0 L MCV 93.6 MCH 30.7 MCHC 32.8 RDW 14.9 H Plt Count 76 L MPV 10.8 H Immature Gran % (Auto) 1.1 H Neut % (Auto) 95.2 H Lymph % (Auto) 1.8 L Hendry % (Auto) 1.6 L Eos % (Auto) 0.0 Baso % (Auto) 0.3 Lymph # (Auto) 0.11 L Hendry # (Auto) 0.1 Eos # (Auto) 0.0 Baso # (Auto) 0.0 Abs Immat Gran (auto) 0.07 H Absolute Neuts (auto) 5.9 Absolute Nucleated RBC 0.0 Nucleated RBC % 0.3 H D-Dimer Sodium 134 L Potassium 3.6 Chloride 100 Carbon Dioxide 28 Anion Gap 6 L BUN 19 H D Creatinine 2.70 H Estim Creat Clear Calc 21 Estimated GFR 19 L Glucose 145 H POC Capillary Glucose 244 H Calcium 7.4 L Ferritin Lactate Dehydrogenase 1530 H C-Reactive Protein 12.4 H
[2020-05-27] MEDS: INSULIN ASPART (*BKC) 100 UNITS/ML SUB-Q ×3 (14:15→20:41)
[2020-05-27 16:00] VITALS: BP 178/72; PULSE 79; RESP 21; TEMP 36.7; O2SAT 97
[2020-05-27 17:18] LABS: Glucose Point of Care 224 (65-105)
--- NOTE | 2020-05-27 17:51 | PM.IMPN ---
Progress Note: A&P Assessment and Plan (1) Acute respiratory failure: Qualifiers: Respiratory failure complication: unspecified whether with hypoxia or hypercapnia Qualified Code(s): J96.00 - Acute respiratory failure, unspecified whether with hypoxia or hypercapnia Code(s): J96.00 - Acute respiratory failure, unspecified whether with hypoxia or hypercapnia Status: Acute Assessment and Plan: Patient extubated pm 05/24 and doing well with NC but oxygen requirements increased. . Related to COVID pneumonia. Chest x-ray reviewed 05/27 showing worsening in the extensive bilateral pulmonary infiltrates related to COVID . Continue HD for fluid managment (3000 ml off 05/26).. (2) Septic shock: Code(s): A41.9 - Sepsis, unspecified organism; R65.21 - Severe sepsis with septic shock Status: Acute Assessment and Plan: Patient with hypotension secondary to sepsis and hypovolemia. Patient also with hypothermic on admission with bradycardia and leukopenia. Patient required dopamine briefly but this was weaned off in the help desk administrator hours on 05/20/20. Blood pressure has since remained stable and actually now elevated. Blood products have helped improved perfusion. (3) COVID-19: Code(s): U07.1 - COVID-19 Status: Acute Assessment and Plan: Chest x-ray reviewed 05/27 showing persistent bilateral pulmonary infiltrates. COVID positive. . Continue Dexamethasone.(06/23) Remdesivir held due to her renal failure. (4) Acute kidney injury superimposed on chronic kidney disease: Code(s): N17.9 - Acute kidney failure, unspecified; N18.9 - Chronic kidney disease, unspecified Status: Acute Assessment and Plan: Patient has CKD stage 4. Creatinine 13.5 on admission. Worsening renal function related to hypotension from hypovolemia and sepsis from COVID. Logan catheter placed 05/19/20 and hemodialysis started. (5) Chronic anemia: Code(s): D64.9 - Anemia, unspecified Status: Acute Assessment and Plan: Patient with chronic anemia with history of multiple blood transfusions. EGD and colonoscopy approximately 7 years ago reportedly showed no significant findings. Suspect acute anemia from unclear etiology. . LDH 956. Hemoccult negative from NG output. . Continue to monitor has received 2 units of packed cells, 3 units of FFP, and 1 unit of convalescent plasma hgb 8.2 today and plat 72K (6) Metabolic acidosis: Code(s): E87.2 - Acidosis Status: Acute Assessment and Plan: Secondary to renal failure. No evidence of DKA and lactic acid level normal. She was treated with sodium bicarbonate. Resolved with HD. (7) Pancytopenia: Code(s): D61.818 - Other pancytopenia Status: Acute Assessment and Plan: Etiology not clear but could be acute vs acute/chronic. Viral illnesses can cause pancytopenia. WBC better probably related to the steroids. Plt count steady at 72K . Hgb better at 8.2 and stable. Hematology following (8) Type 2 diabetes mellitus: Code(s): E11.9 - Type 2 diabetes mellitus without complications Status: Acute Assessment and Plan: A1c 5.1% but possibly falsely low due to the anemia. Diabetes historically has been poorly controlled but family state improved glycemic control more recently. The patient's blood glucose was reviewed on 05/27/20. Glucose remains reasonably well controlled. Continue AccuCheks covering with sliding scale. Hypoglycemia protocol available as needed. Continue current treatment plan. BS higher off lantus and continue to follow ____
[2020-05-27 20:00] VITALS: BP 162/77; PULSE 76; RESP 23; TEMP 36.5; O2SAT 92
[2020-05-27 20:30] VITALS: PULSE 77
[2020-05-27 21:05] LABS: Glucose Point of Care 332 (65-105)
--- NOTE | 2020-05-27 22:55 | P.PNNP_ITS ---
Progress Note: A&P Assessment and Plan (1) [id number] renal failure: Code(s): N17.9 - Acute kidney failure, unspecified; N18.9 - Chronic kidney disease, unspecified Status: Acute Assessment and Plan: * apparently had advanced chronic kidney disease at baseline * due to DM and HTN * HD tomorrow. (2) COVID-19: Code(s): U07.1 - COVID-19 Status: Acute Assessment and Plan: * tested positive * had not been feeling well 2 weeks prior to admission * apparently not a candidate for Remdesivir (3) Acute respiratory failure: Qualifiers: Respiratory failure complication: unspecified whether with hypoxia or hypercapnia Qualified Code(s): J96.00 - Acute respiratory failure, unspecified whether with hypoxia or hypercapnia Code(s): J96.00 - Acute respiratory failure, unspecified whether with hypoxia or hypercapnia Status: Acute Assessment and Plan: * due acute illness * extubated (resolved) * follow respiratory status closely * breathing comfortably sitting up in a chaiir now. (4) Hypotension: Code(s): I95.9 - Hypotension, unspecified Status: Acute Assessment and Plan: * some component of shock on admission * briefly on dopamine which has since been weaned off * now bp is much better. (5) Metabolic acidosis: Code(s): E87.2 - Acidosis Status: Acute Assessment and Plan: * quite severe on admission * corrected with dialytic intervention * follow trend (6) Anemia: Code(s): D64.9 - Anemia, unspecified Status: Acute Assessment and Plan: * somewhat of a chronic issue by history * has required multiple PRBC transfusion in the past * anemia studies suggest signifcant iron deficiency * suspect ALBERTINA, CKD, and acute illness playing a role * pancytopenia contributing as well (Hem/Onc following) * getting IV iron * Epogen with HD * Hb 8.2 (7) Hypocalcemia: Code(s): E83.51 - Hypocalcemia Status: Acute Assessment and Plan: * presumably due to renal failure * attempting correct with dialysis (8) Diabetes: Code(s): E11.9 - Type 2 diabetes mellitus without complications Status: Acute Assessment and Plan: * follow accuchecks * on SSI Will continue to follow. Subjective Date/time seen: 05/27/20 22:55 Interval history: pt comfortable in chair. no cp or sob. Exam Narrative: Exam Narrative: General: WD/WN female in NAD Heart: normal S1 and S2; no rub Lungs: diminished throughout Abdomen: soft, nontender, nondistended, positive bowel sounds Extremities: no cyanosis or clubbing; 1+ edema Skin: warm and dry Objective Data Vital Signs Vital Signs: Vital Signs - 24 hr 05/27/20 00:00 05/27/20 07:41 05/27/20 08:00 Temperature 36.6 C 36.6 C Pulse Rate 81 83 Respiratory Rate 23 H 28 H Blood Pressure 153/80 H 136/79 Pulse Oximetry 96 90 91 05/27/20 16:00 05/27/20 20:00 05/27/20 20:30 Temperature 36.7 C 36.5 C Pulse Rate 79 76 77 Respiratory Rate 21 H 23 H Blood Pressure 178/72 H 162/77 H Pulse Oximetry 97 92 Intake/Output Intake/Output: Intake & Output 05/24/20 05/25/20 05/26/20 05/27/20 23:59 23:59 23:59 23:59 Intake Total 521 440
--- NOTE | 2020-05-27 22:55 | PM.PNNEP ---
Progress Note: A&P Assessment and Plan (1) [id number] renal failure: Code(s): N17.9 - Acute kidney failure, unspecified; N18.9 - Chronic kidney disease, unspecified Status: Acute Assessment and Plan: apparently had advanced chronic kidney disease at baseline due to DM and HTN HD tomorrow. (2) COVID-19: Code(s): U07.1 - COVID-19 Status: Acute Assessment and Plan: tested positive had not been feeling well 2 weeks prior to admission apparently not a candidate for Remdesivir (3) Acute respiratory failure: Qualifiers: Respiratory failure complication: unspecified whether with hypoxia or hypercapnia Qualified Code(s): J96.00 - Acute respiratory failure, unspecified whether with hypoxia or hypercapnia Code(s): J96.00 - Acute respiratory failure, unspecified whether with hypoxia or hypercapnia Status: Acute Assessment and Plan: due acute illness extubated (resolved) follow respiratory status closely breathing comfortably sitting up in a chaiir now. (4) Hypotension: Code(s): I95.9 - Hypotension, unspecified Status: Acute Assessment and Plan: some component of shock on admission briefly on dopamine which has since been weaned off now bp is much better. (5) Metabolic acidosis: Code(s): E87.2 - Acidosis Status: Acute Assessment and Plan: quite severe on admission corrected with dialytic intervention follow trend (6) Anemia: Code(s): D64.9 - Anemia, unspecified Status: Acute Assessment and Plan: somewhat of a chronic issue by history has required multiple PRBC transfusion in the past anemia studies suggest signifcant iron deficiency suspect ALBERTINA, CKD, and acute illness playing a role pancytopenia contributing as well (Hem/Onc following) getting IV iron Epogen with HD Hb 8.2 (7) Hypocalcemia: Code(s): E83.51 - Hypocalcemia Status: Acute Assessment and Plan: presumably due to renal failure attempting correct with dialysis (8) Diabetes: Code(s): E11.9 - Type 2 diabetes mellitus without complications Status: Acute Assessment and Plan: follow accuchecks on SSI Will continue to follow. Subjective Date/time seen: 05/27/20 22:55 Interval history: pt comfortable in chair. no cp or sob. Exam Narrative: Exam Narrative: General: WD/WN female in NAD Heart: normal S1 and S2; no rub Lungs: diminished throughout Abdomen: soft, nontender, nondistended, positive bowel sounds Extremities: no cyanosis or clubbing; 1+ edema Skin: warm and dry Objective Data Vital Signs Vital Signs: Vital Signs - 24 hr 05/27/20 00:00 05/27/20 07:41 05/27/20 08:00 Temperature 36.6 C 36.6 C Pulse Rate 81 83 Respiratory Rate 23 H 28 H Blood Pressure 153/80 H 136/79 Pulse Oximetry 96 90 91 05/27/20 16:00 05/27/20 20:00 05/27/20 20:30 Temperature 36.7 C 36.5 C Pulse Rate 79 76 77 Respiratory Rate 21 H 23 H Blood Pressure 178/72 H 162/77 H Pulse Oximetry 97 92 Intake/Output Intake/Output: Intake & Output 05/24/20 05/25/20 05/26/20 05/27/20 23:59 23:59 23:59 23:59 Intake Total 855 862 874 9069 Output Total 2975 101 3000 200 Balance -2120 339 -2480 1240 Meds/Results Medications: Active Medications Generic Name Dose Route Start Last Admin Trade Name Freq PRN Reason Stop Dose Admin Acetaminophen 650 mg 05/19/20 16:00 Tylenol Tablet PO Q4H PRN Mild Pain (1-3) or Fever Amlodipine Besylate 10 mg 05/27/20 09:00 05/27/20 10:14 Norvasc PO 10 mg QAM CHAVA Administration Carvedilol 25 mg 05/21/20 10:03 05/27/20 20:30 Coreg PO 25 mg Q12HR CHAVA Administration Dexamethasone Sodium Phosphate 6 mg 05/20/20 00:30 05/27/20 10:15 Decadron 10 Mg/Ml Inj IV PUSH 05/28/20 09:01 6 mg DAILY CHAVA Administration Dextrose 12.5 gm 05/19/20 22:01 05/26/20 09:32
[2020-05-28] VITALS (25 sets, daily range): BP systolic 96–168; BP diastolic 36–87; PULSE 64–160; RESP 18–22; TEMP 36.1–37; O2SAT 0–99
[2020-05-28] MEDS: INSULIN ASPART (*BKC) 100 UNITS/ML SUB-Q ×2 (01:23→10:02)
[2020-05-28 01:36] LABS: Glucose Point of Care 205 (65-105)
[2020-05-28 06:36] LABS: Hematocrit 22.6 % (37.0-47.0); Hemoglobin 7.5 g/dL (12.0-15.0); Immature Granulocyte Absolute 0.07 K/mm3 (0.00-0.031); Lymphocytes Absolute Auto 0.12 K/mm3 (0.9-3.2); Lymphocytes Percent Auto 1.6 % (18.3-44.2); Mean Corpuscular HGB Conc 33.2 g/dl (32-36); Mean Corpuscular Hemoglobin 30.2 pg (26-34); Mean Corpuscular Volume 91.1 fl (80-100); Mean Platelet Volume 11.2 fl (7.4-10.4); Monocytes Absolute Auto 0.2 K/mm3 (0.1-0.6); Monocytes Percent Auto 2.5 % (2.6-8.5); Neutrophils Percent Auto 94.9 % (45.5-73.1); Nucleated Red Blood Cells Perc 0.3 % (0.0-0.2); Platelet Count Result 94 k/mm3 (150-375); Red Blood Count 2.48 M/mm3 (4.2-5.4); Red Cell Distribution Width 14.4 % (11.5-14.5); White Blood Count 7.3 K/mm3 (4.5-10.0)
[2020-05-28 07:01] LABS: Anion Gap 8 mmol/L (8-16); Blood Urea Nitrogen 32 mg/dL (7-17); Calcium 7.3 mg/dL (8.4-10.2); Carbon Dioxide 28 mmol/L (22-30); Chloride 95 mmol/L (98-107); Estimated CRCL calculation 12 ml/min; Estimated Glomerular Filt Rate 11; Glucose 166 mg/dL (65-105); Potassium 3.9 mmol/L (3.4-5.0); Sodium 131 mmol/L (137-145)
[2020-05-28] MEDS: carvediloL 25 MG TABLET PO ×2 (09:34→20:22)
[2020-05-28] MEDS: PANTOPRAZOLE SODIUM IV 40 MG VIAL IV PUSH ×2 (09:34→20:22)
[2020-05-28] MEDS: amLODIPine BESYLATE 5 MG TABLET 10 MG PO (09:34)
--- NOTE | 2020-05-28 11:33 | P.PNNP_ITS ---
Progress Note: A&P Assessment and Plan (1) [id number] renal failure: Code(s): N17.9 - Acute kidney failure, unspecified; N18.9 - Chronic kidney disease, unspecified Status: Acute Assessment and Plan: * apparently had advanced chronic kidney disease at baseline * due to DM and HTN * HD to be done later today. * long discussion with the patient and her daughter who speaks Ukrainian. We discussed dialysis access. She lives at [facility] and so was worried about cleanliness. I encouraged her to have the patient keep it covered and avoid unclean situations. She should get a fistula soon as p ossible but has to wait till after COVID and after discharge because we do not do that here. Will try to get her set up with Dr. Valencia at [facility] to get this done. We also discussed transplantation. There are many family members to want to give her kidney. This is fine as long as she can tolerate a transplant. So the daughter is going to call the transplant center she wishes to use and help the patient fill out the paperwork and initiate the application for the transplant. Once the patient is accepted for transplantation put on the list then donors can apply. We also discussed diet . She will do the above so that she can get a start on appointments etc to be done once cleared from COVID-19. Long discussion. We spent 25 minutes discussing the above apart from clinical activity. (2) COVID-19: Code(s): U07.1 - COVID-19 Status: Acute Assessment and Plan: * tested positive * had not been feeling well 2 weeks prior to admission * apparently not a candidate for Remdesivir (3) Acute respiratory failure: Qualifiers: Respiratory failure complication: unspecified whether with hypoxia or hypercapnia Qualified Code(s): J96.00 - Acute respiratory failure, unspecified whether with hypoxia or hypercapnia Code(s): J96.00 - Acute respiratory failure, unspecified whether with hypoxia or hypercapnia Status: Acute Assessment and Plan: * due acute illness * Doing much better now off oxygen. (4) Hypotension: Code(s): I95.9 - Hypotension, unspecified Status: Acute Assessment and Plan: * some component of shock on admission * briefly on dopamine which has since been weaned off * now bp is much better. May need to add antihypertensives at some point. (5) Metabolic acidosis: Code(s): E87.2 - Acidosis Status: Acute Assessment and Plan: * quite severe on admission * Now improved to normal. (6) Anemia: Code(s): D64.9 - Anemia, unspecified Status: Acute Assessment and Plan: * somewhat of a chronic issue by history * has required multiple PRBC transfusion in the past * anemia studies suggest signifcant iron deficiency * suspect ALBERTINA, CKD, and acute illness playing a role * pancytopenia contributing as well (Hem/Onc following) * getting IV iron * Epogen with HD * Hb 7.5 today (7) Hypocalcemia: Code(s): E83.51 - Hypocalcemia Status: Acute Assessment and Plan: * presumably due to renal failure * attempting correct with dialysis (8) Diabetes: Code(s): E11.9 - Type 2 diabetes mellitus without complications Status: Acute Assessment and Plan: * follow accuchecks * on SSI Subjective Date/time seen: 05/28/20 11:33 Interval history: pt comfortable in chair. she feels okay. Eager for discharge. Review of Systems
--- NOTE | 2020-05-28 11:33 | PM.PNNEP ---
Progress Note: A&P Assessment and Plan (1) Cwxlo-qs-ekmnkkf renal failure: Code(s): N17.9 - Acute kidney failure, unspecified; N18.9 - Chronic kidney disease, unspecified Status: Acute Assessment and Plan: apparently had advanced chronic kidney disease at baseline due to DM and HTN HD to be done later today. long discussion with the patient and her daughter who speaks [place]. We discussed dialysis access. She lives at [facility] and so was worried about cleanliness. I encouraged her to have the patient keep it covered and avoid unclean situations. She should get a fistula soon as possible but has to wait till after COVID and after discharge because we do not do that here. Will try to get her set up with Dr. Valencia at [facility] to get this done. We also discussed transplantation. There are many family members to want to give her kidney. This is fine as long as she can tolerate a transplant. So the daughter is going to call the transplant center she wishes to use and help the patient fill out the paperwork and initiate the application for the transplant. Once the patient is accepted for transplantation put on the list then donors can apply. We also discussed diet. She will do the above so that she can get a start on appointments etc to be done once cleared from COVID-19. Long discussion. We spent 25 minutes discussing the above apart from clinical activity. (2) COVID-19: Code(s): U07.1 - COVID-19 Status: Acute Assessment and Plan: tested positive had not been feeling well 2 weeks prior to admission apparently not a candidate for Remdesivir (3) Acute respiratory failure: Qualifiers: Respiratory failure complication: unspecified whether with hypoxia or hypercapnia Qualified Code(s): J96.00 - Acute respiratory failure, unspecified whether with hypoxia or hypercapnia Code(s): J96.00 - Acute respiratory failure, unspecified whether with hypoxia or hypercapnia Status: Acute Assessment and Plan: due acute illness Doing much better now off oxygen. (4) Hypotension: Code(s): I95.9 - Hypotension, unspecified Status: Acute Assessment and Plan: some component of shock on admission briefly on dopamine which has since been weaned off now bp is much better. May need to add antihypertensives at some point. (5) Metabolic acidosis: Code(s): E87.2 - Acidosis Status: Acute Assessment and Plan: quite severe on admission Now improved to normal. (6) Anemia: Code(s): D64.9 - Anemia, unspecified Status: Acute Assessment and Plan: somewhat of a chronic issue by history has required multiple PRBC transfusion in the past anemia studies suggest signifcant iron deficiency suspect ALBERTINA, CKD, and acute illness playing a role pancytopenia contributing as well (Hem/Onc following) getting IV iron Epogen with HD Hb 7.5 today (7) Hypocalcemia: Code(s): E83.51 - Hypocalcemia Status: Acute Assessment and Plan: presumably due to renal failure attempting correct with dialysis (8) Diabetes: Code(s): E11.9 - Type 2 diabetes mellitus without complications Status: Acute Assessment and Plan: follow accuchecks on SSI Subjective Date/time seen: 05/28/20 11:33 Interval history: pt comfortable in chair. she feels okay. Eager for discharge. Review of Systems Cardiovascular: Cardiovascular: Reports no additional cardiovascular complaints Respiratory: Respiratory: Reports no additional respiratory complaints Gastrointestinal: Gastrointestinal: Reports no additional gastrointestinal complaints Genitourinary: Genitourinary: Reports no additional female genitourinary complaints Exam Narrative: Exam Narrative: General: WD/WN female in NAD Heart: normal S1 and S2; no rub Lungs: fairly clear Abdomen: soft, nontende
[2020-05-28 13:05] LABS: Glucose Point of Care 218 (65-105)
[2020-05-28 13:05] LABS: Glucose Point of Care 184 (65-105)
--- NOTE | 2020-05-28 14:38 | PCPTNOTE ---
Addendum entered by Omaira Gould, SENIOR IOS DEVELOPER 05/28/20 15:15: attempted again to see patient this afternoon and she was working with OT. Original Note: The patient treatment was not able to be completed on 05/28/20, due to being transferred to another room. Will plan to continue treatment per plan of care.
--- NOTE | 2020-05-28 14:47 | PCOTNOTE ---
Patient not available this pm due to transfer to room 327; awaiting NUCLEAR EQUIPMENT SALES ENGINEER care and Respiratory.
--- NOTE | 2020-05-28 14:49 | PC.NURSE ---
This patient, Leroy Falcon, was transferred to [ [facility]] on 05/28/20 at 1449. Personal belongings sent with patient. Belongings list checked and signed with receiving. Report given to [ary dalton rn ]. Appropriate documentation sent with patient.
--- NOTE | 2020-05-28 14:57 | PC.NURSE ---
This patient, Leroy Falcon, was received from [ICU] on 05/28/20 at 1440. Personal belongings list checked and signed. Patient/family oriented to unit policies and routines
--- NOTE | 2020-05-28 17:32 | PM.IMPN ---
Progress Note: A&P Assessment and Plan (1) Acute respiratory failure: Qualifiers: Respiratory failure complication: unspecified whether with hypoxia or hypercapnia Qualified Code(s): J96.00 - Acute respiratory failure, unspecified whether with hypoxia or hypercapnia Code(s): J96.00 - Acute respiratory failure, unspecified whether with hypoxia or hypercapnia Status: Acute Assessment and Plan: Patient extubated pm 05/24 and doing well with NC but oxygen requirements increased. . Related to COVID pneumonia. Chest x-ray reviewed 05/27 showing worsening in the extensive bilateral pulmonary infiltrates related to COVID . Continue HD for fluid managment (3000 ml off 05/26).and repeat today . (2) Septic shock: Code(s): A41.9 - Sepsis, unspecified organism; R65.21 - Severe sepsis with septic shock Status: Acute Assessment and Plan: Patient with hypotension secondary to sepsis and hypovolemia. Patient also with hypothermic on admission with bradycardia and leukopenia. Patient required dopamine briefly but this was weaned off in the fruit buying grader hours on 05/20/20. Blood pressure has since remained stable and actually now elevated. Blood products have helped improved perfusion. (3) COVID-19: Code(s): U07.1 - COVID-19 Status: Acute Assessment and Plan: Chest x-ray reviewed 05/27 showing persistent bilateral pulmonary infiltrates. COVID positive. . Continue Dexamethasone.(06/23) Remdesivir held due to her renal failure. (4) Acute kidney injury superimposed on chronic kidney disease: Code(s): N17.9 - Acute kidney failure, unspecified; N18.9 - Chronic kidney disease, unspecified Status: Acute Assessment and Plan: Patient has CKD stage 4. Creatinine 13.5 on admission. Worsening renal function related to hypotension from hypovolemia and sepsis from COVID. Logan catheter placed 05/19/20 and hemodialysis started. (5) Chronic anemia: Code(s): D64.9 - Anemia, unspecified Status: Acute Assessment and Plan: Patient with chronic anemia with history of multiple blood transfusions. EGD and colonoscopy approximately 7 years ago reportedly showed no significant findings. Suspect acute anemia from unclear etiology. . LDH 956. Hemoccult negative from NG output. . Continue to monitor has received 2 units of packed cells, 3 units of FFP, and 1 unit of convalescent plasma hgb 8.2 05/27 and plat 72K, recheck am (6) Metabolic acidosis: Code(s): E87.2 - Acidosis Status: Acute Assessment and Plan: Secondary to renal failure. No evidence of DKA and lactic acid level normal. She was treated with sodium bicarbonate. Resolved with HD. (7) Pancytopenia: Code(s): D61.818 - Other pancytopenia Status: Acute Assessment and Plan: Etiology not clear but could be acute vs acute/chronic. Viral illnesses can cause pancytopenia. WBC better probably related to the steroids. Plt count steady at 72K . Hgb better at 8.2 and stable. Hematology following repeat am (8) Type 2 diabetes mellitus: Code(s): E11.9 - Type 2 diabetes mellitus without complications Status: Acute Assessment and Plan: A1c 5.1% but possibly falsely low due to the anemia. Diabetes historically has been poorly controlled but family state improved glycemic control more recently. The patient's blood glucose was reviewed on 05/28/20. Glucose remains reasonably well controlled. Continue AccuCheks covering with sliding scale. Hypoglycemia protocol available as needed. Continue current treatment plan. BS higher off romy
[2020-05-28 17:55] LABS: Glucose Point of Care 143 (65-105)
[2020-05-28] MEDS: SODIUM CHLORIDE 0.9% IV 1,000 ML 200 ML (18:30)
[2020-05-28] MEDS: HEPARIN SODIUM 1,000 UNITS/ML VIAL 1000 UNITS (18:30)
[2020-05-29] VITALS (9 sets, daily range): BP systolic 128–172; BP diastolic 56–76; PULSE 69–79; RESP 18–20; TEMP 36.2–37.2; O2SAT 85–99
[2020-05-29] LABS: Glucose Point of Care 277 (65-105)
[2020-05-29] MEDS: INSULIN ASPART (*BKC) 100 UNITS/ML SUB-Q (05:25)
[2020-05-29 05:57] LABS: Glucose Point of Care 221 (65-105)
[2020-05-29 07:23] LABS: Basophils Percent Auto 0.1 % (0.2-1.2); Eosinophils Percent Auto 0.1 % (0-4.4); Hematocrit 24.5 % (37.0-47.0); Hemoglobin 8.1 g/dL (12.0-15.0); Immature Granulocyte Absolute 0.04 K/mm3 (0.00-0.031); Immature Granulocyte Percent A 0.5 % (0-0.5); Lymphocytes Absolute Auto 0.12 K/mm3 (0.9-3.2); Lymphocytes Percent Auto 1.4 % (18.3-44.2); Mean Corpuscular HGB Conc 33.1 g/dl (32-36); Mean Corpuscular Hemoglobin 30.6 pg (26-34); Mean Corpuscular Volume 92.5 fl (80-100); Mean Platelet Volume 11.1 fl (7.4-10.4); Monocytes Absolute Auto 0.2 K/mm3 (0.1-0.6); Monocytes Percent Auto 2.5 % (2.6-8.5); Neutrophils Percent Auto 95.4 % (45.5-73.1); Nucleated Red Blood Cells Perc 0.2 % (0.0-0.2); Platelet Count Result 117 k/mm3 (150-375); Red Blood Count 2.65 M/mm3 (4.2-5.4); Red Cell Distribution Width 14.9 % (11.5-14.5); White Blood Count 8.4 K/mm3 (4.5-10.0)
[2020-05-29 07:32] LABS: Albumin Level 2.6 g/dL (3.5-5.1); Anion Gap 6 mmol/L (8-16); Blood Urea Nitrogen 17 mg/dL (7-17); CRP 4.6 mg/dL (<1.0); Calcium 7.5 mg/dL (8.4-10.2); Carbon Dioxide 28 mmol/L (22-30); Chloride 99 mmol/L (98-107); Estimated CRCL calculation 18 ml/min; Estimated Glomerular Filt Rate 18; Glucose 196 mg/dL (65-105); Lactate Dehydrogenase 1246 U/L (313-618); Phosphorus 2.5 mg/dL (2.5-4.5); Potassium 3.3 mmol/L (3.4-5.0); Sodium 133 mmol/L (137-145)
[2020-05-29 07:35] LABS: D Dimer 3.91 ug/mL (<0.48)
[2020-05-29] MEDS: PANTOPRAZOLE SODIUM IV 40 MG VIAL IV PUSH (08:27)
[2020-05-29] MEDS: carvediloL 25 MG TABLET PO (08:27)
[2020-05-29] MEDS: amLODIPine BESYLATE 5 MG TABLET 10 MG PO (08:27)
--- NOTE | 2020-05-29 08:57 | P.PNNP_ITS ---
Progress Note: A&P Assessment and Plan (1) Ujwar-rm-gavhpsw renal failure: Code(s): N17.9 - Acute kidney failure, unspecified; N18.9 - Chronic kidney disease, unspecified Status: Acute Assessment and Plan: * apparently had advanced chronic kidney disease at baseline * due to DM and HTN * HD can be done here if she is still here or at a COVID [facility] unit if discharged. I believe she can go to [place] on Saturdays (2) COVID-19: Code(s): U07.1 - COVID-19 Status: Acute Assessment and Plan: * tested positive * had not been feeling well 2 weeks prior to admission * apparently not a candidate for Remdesivir * No fevers or symptoms. (3) Acute respiratory failure: Qualifiers: Respiratory failure complication: unspecified whether with hypoxia or hypercapnia Qualified Code(s): J96.00 - Acute respiratory failure, unspecified whether with hypoxia or hypercapnia Code(s): J96.00 - Acute respiratory failure, unspecified whether with hypoxia or hypercapnia Status: Acute Assessment and Plan: * due acute illness * on no oxygen supplement. (4) Hypotension: Code(s): I95.9 - Hypotension, unspecified Status: Acute Assessment and Plan: * Resolved (5) Metabolic acidosis: Code(s): E87.2 - Acidosis Status: Acute Assessment and Plan: * resolved (6) Anemia: Code(s): D64.9 - Anemia, unspecified Status: Acute Assessment and Plan: * somewhat of a chronic issue by history * hemoglobin up to 8.1 today. * Supplementing with EPO (7) Hypocalcemia: Code(s): E83.51 - Hypocalcemia Status: Acute Assessment and Plan: * improved (8) Diabetes: Code(s): E11.9 - Type 2 diabetes mellitus without complications Status: Acute Assessment and Plan: * follow accuchecks * on SSI Subjective Date/time seen: 05/29/20 08:57 Interval history: Moved out of the ICU into the regular hospital room. Still on isolation for COVID-19 pt comfortable in chair. she feels okay. Eager for discharge. Exam Narrative: Exam Narrative: General: WD/WN female in NAD Heart: normal S1 and S2; no rub Lungs: fairly clear Abdomen: soft, nontender, nondistended, positive bowel sounds Extremities: no cyanosis or clubbing; trace edema Skin: No rash Objective Data Vital Signs Vital Signs: Vital Signs - 24 hr 05/28/20 09:34 05/28/20 13:54 05/28/20 14:50 Temperature 36.9 C Pulse Rate 73 67 Respiratory Rate 19 Blood Pressure 163/69 H Pulse Oximetry 94 05/28/20 15:00 05/28/20 15:08 05/28/20 15:15 Temperature Pulse Rate 160 H 89 Respiratory Rate Blood Pressure 156/77 H 160/77 H Pulse Oximetry 0 L 05/28/20 15:30 05/28/20 15:45 05/28/20 16:00 Temperature 36.1 C L Pulse Rate 65 65 64 Respiratory Rate 18 Blood Pressure 168/80 H 159/71 H 156/73 H Pulse Oximetry 99 05/28/20 16:15 05/28/20 16:30 05/28/20 16:45 Temperature Pulse Rate 64 64 65 Respiratory Rate Blood Pressure 147/76 H 140/74 126/60 Pulse O
--- NOTE | 2020-05-29 08:57 | PM.PNNEP ---
Progress Note: A&P Assessment and Plan (1) Rbfmn-ke-eioijew renal failure: Code(s): N17.9 - Acute kidney failure, unspecified; N18.9 - Chronic kidney disease, unspecified Status: Acute Assessment and Plan: apparently had advanced chronic kidney disease at baseline due to DM and HTN HD can be done here if she is still here or at a COVID positive [facility] unit if discharged. I believe she can go to [place] on Saturdays (2) COVID-19: Code(s): U07.1 - COVID-19 Status: Acute Assessment and Plan: tested positive had not been feeling well 2 weeks prior to admission apparently not a candidate for Remdesivir No fevers or symptoms. (3) Acute respiratory failure: Qualifiers: Respiratory failure complication: unspecified whether with hypoxia or hypercapnia Qualified Code(s): J96.00 - Acute respiratory failure, unspecified whether with hypoxia or hypercapnia Code(s): J96.00 - Acute respiratory failure, unspecified whether with hypoxia or hypercapnia Status: Acute Assessment and Plan: due acute illness on no oxygen supplement. (4) Hypotension: Code(s): I95.9 - Hypotension, unspecified Status: Acute Assessment and Plan: Resolved (5) Metabolic acidosis: Code(s): E87.2 - Acidosis Status: Acute Assessment and Plan: resolved (6) Anemia: Code(s): D64.9 - Anemia, unspecified Status: Acute Assessment and Plan: somewhat of a chronic issue by history hemoglobin up to 8.1 today. Supplementing with EPO (7) Hypocalcemia: Code(s): E83.51 - Hypocalcemia Status: Acute Assessment and Plan: improved (8) Diabetes: Code(s): E11.9 - Type 2 diabetes mellitus without complications Status: Acute Assessment and Plan: follow accuchecks on SSI Subjective Date/time seen: 05/29/20 08:57 Interval history: Moved out of the ICU into the regular hospital room. Still on isolation for COVID-19 pt comfortable in chair. she feels okay. Eager for discharge. Exam Narrative: Exam Narrative: General: WD/WN female in NAD Heart: normal S1 and S2; no rub Lungs: fairly clear Abdomen: soft, nontender, nondistended, positive bowel sounds Extremities: no cyanosis or clubbing; trace edema Skin: No rash Objective Data Vital Signs Vital Signs: Vital Signs - 24 hr 05/28/20 09:34 05/28/20 13:54 05/28/20 14:50 Temperature 36.9 C Pulse Rate 73 67 Respiratory Rate 19 Blood Pressure 163/69 H Pulse Oximetry 94 05/28/20 15:00 05/28/20 15:08 05/28/20 15:15 Temperature Pulse Rate 160 H 89 Respiratory Rate Blood Pressure 156/77 H 160/77 H Pulse Oximetry 0 L 05/28/20 15:30 05/28/20 15:45 05/28/20 16:00 Temperature 36.1 C L Pulse Rate 65 65 64 Respiratory Rate 18 Blood Pressure 168/80 H 159/71 H 156/73 H Pulse Oximetry 99 05/28/20 16:15 05/28/20 16:30 05/28/20 16:45 Temperature Pulse Rate 64 64 65 Respiratory Rate Blood Pressure 147/76 H 140/74 126/60 Pulse Oximetry 05/28/20 17:00 05/28/20 17:15 05/28/20 17:30 Temperature Pulse Rate 65 65 65 Respiratory Rate Blood Pressure 130/76 131/71 137/71 Pulse Oximetry 05/28/20 17:45 05/28/20 18:00 05/28/20 18:15 Temperature Pulse Rate 71 65 66 Respiratory Rate Blood Pressure 96/36 L 122/68 130/67 Pulse Oximetry 05/28/20 18:30 05/28/20 18:42 05/28/20 20:00 Temperature 36.9 C 36.7 C Pulse Rate 66 68 71 Respiratory Rate 20 20 Blood Pressure 116/59 L 159/68 H 128/53 L Pulse Oximetry 99 05/28/20 20:22 05/29/20 00:00 05/29/20 04:00 Temperature 36.6 C 37.2 C Pulse Rate 76 78 79 Respiratory Rate 20 20 Blood Pressure 153/58 H 167/68 H Pulse Oximetry 99 99 05/29/20 08:27 Temperature Pulse Rate 75 Respiratory Rate Blood Pressure Pulse Oximetry Intak
[2020-05-29 09:46] LABS: Glucose Point of Care 129 (65-105)
[2020-05-29 10:48] LABS: Glucose Point of Care 175 (65-105)
--- NOTE | 2020-05-29 12:06 | PM.IMPN ---
Progress Note: A&P Assessment and Plan (1) Acute respiratory failure: Qualifiers: Respiratory failure complication: unspecified whether with hypoxia or hypercapnia Qualified Code(s): J96.00 - Acute respiratory failure, unspecified whether with hypoxia or hypercapnia Code(s): J96.00 - Acute respiratory failure, unspecified whether with hypoxia or hypercapnia Status: Acute Assessment and Plan: Patient extubated pm 05/24 and doing well with NC . . Related to COVID pneumonia. Chest x-ray reviewed 05/27 showing worsening in the extensive bilateral pulmonary infiltrates related to COVID . Continue HD for fluid managment (3000 ml off 05/26).and 3000 again 05/28 . Saturating well with NC but still desaturates with RA , will have home 02 eval to determine if will need home 02 (2) Septic shock: Code(s): A41.9 - Sepsis, unspecified organism; R65.21 - Severe sepsis with septic shock Status: Acute Assessment and Plan: Patient with hypotension secondary to sepsis and hypovolemia. Patient was hypothermic on admission with bradycardia and leukopenia. Patient required dopamine briefly but this was weaned off in the program manager transportation hours on 05/20/20. Blood pressure has since remained stable and actually now elevated. Blood products have helped improved perfusion. (3) COVID-19: Code(s): U07.1 - COVID-19 Status: Acute Assessment and Plan: Chest x-ray reviewed 05/29 showing improvement in inflitrates. COVID positive. . finish Dexamethasone.(07/23) today 05/29. Remdesivir held due to her renal failure. (4) Acute kidney injury superimposed on chronic kidney disease: Code(s): N17.9 - Acute kidney failure, unspecified; N18.9 - Chronic kidney disease, unspecified Status: Acute Assessment and Plan: Patient has CKD stage 4. Creatinine 13.5 on admission. Worsening renal function related to hypotension from hypovolemia and sepsis from COVID. Logan catheter placed 05/19/20 and hemodialysis started. Will do outpatient //Sat at [facility] (5) Chronic anemia: Code(s): D64.9 - Anemia, unspecified Status: Acute Assessment and Plan: Patient with chronic anemia with history of multiple blood transfusions. EGD and colonoscopy approximately 7 years ago reportedly showed no significant findings. Suspect acute anemia from unclear etiology. . LDH 956. Hemoccult negative from NG output. . Continue to monitor has received 2 units of packed cells, 3 units of FFP, and 1 unit of convalescent plasma hgb 8.1 today(05/29) and plat up to 117K (6) Metabolic acidosis: Code(s): E87.2 - Acidosis Status: Acute Assessment and Plan: Secondary to renal failure. No evidence of DKA and lactic acid level normal. She was treated with sodium bicarbonate. Resolved with HD. (7) Pancytopenia: Code(s): D61.818 - Other pancytopenia Status: Acute Assessment and Plan: Etiology not clear but could be acute vs acute/chronic. Viral illnesses can cause pancytopenia. WBC better probably related to the steroids. Plt count up to 117K . Hgb 8.1 and stable. (8) Type 2 diabetes mellitus: Code(s): E11.9 - Type 2 diabetes mellitus without complications Status: Acute Assessment and Plan: A1c 5.1% but possibly falsely low due to the anemia. Diabetes historically has been poorly controlled but family state improved glycemic control more recently. The patient's blood glucose was reviewed on 05/29/20. Glucose remains reasonably well controlled. Continue AccuCheks covering with sliding scale. Hypoglyce
--- NOTE | 2020-05-29 17:08 | PCRCNOTE ---
Home O2 Evaluation complete. Pt requires 2L O2 with activity. Setup pt with [facility]. [phone] ([facility]).
--- NOTE | 2020-05-29 17:13 | HOMEO2EVAL ---
Home Oxygen Evaluation RC: Home Oxygen (O2) Evaluation Start: 05/29/20 12:03 Freq: ONCE Status: Active Protocol: RPE Activity Type Activity Date Activity User E-Sign Co-Sign Detail Recorded Client Recorded Date Recorded By Document 05/29/20 15:00 TJT [email or web address] 05/29/20 16:48 TJT Document 05/29/20 15:02 TJT [email or web address] 05/29/20 16:52 TJT Document 05/29/20 15:05 TJT [email or web address] 05/29/20 16:53 TJT 05/29/20 05/29/20 05/29/20 15:00 15:02 15:05 Home O2 Evaluation Test Phase Resting Exercise Exercise Oxygen Delivery Room Air Room Air Oxygen Flow Rate (L/min) 2 Fraction of Inspired Oxygen (%) 21 21 28 Pulse Oximetry (90-100 %) 98 85 L 97 Pulse Rate (60-100 beats/min) 69 74 76 Activity Tolerance Fair Good Rating of Perceived Dyspnea (PD) +2 Mild, Some Difficulty, Noticeable to the Observer Ambulation Distance (feet) 60 Home Oxygen Evaluation Comments put pt on 2L O2 put pt on 2L O2 /Sats increased /Sats increased to 97% while to 97% while ambulating ambulating Treatment Charges O2 Evaluation
--- NOTE | 2020-06-04 11:58 | PM.DS ---
DS: Admitting Diagnosis Admitting Diagnosis Admitting Diagnosis: Multiple complaints. DS: Discharge Diagnosis Discharge Diagnosis (1) Acute respiratory failure: Qualifiers: Respiratory failure complication: unspecified whether with hypoxia or hypercapnia Qualified Code(s): J96.00 - Acute respiratory failure, unspecified whether with hypoxia or hypercapnia Code(s): J96.00 - Acute respiratory failure, unspecified whether with hypoxia or hypercapnia Status: Acute Assessment and Plan: Patient extubated pm 05/24 and doing well with NC . . Related to COVID pneumonia. . Continued HD for fluid managment (3000 ml off 05/26).and 3000 again 05/28 . Saturating well with NC but still desaturates with RA , home 02 eval 2L NC and 98% at d/c chest xray 05/29 improved inflitrates (2) Septic shock: Code(s): A41.9 - Sepsis, unspecified organism; R65.21 - Severe sepsis with septic shock Status: Acute Assessment and Plan: Patient with hypotension secondary to sepsis and hypovolemia. Patient was hypothermic on admission with bradycardia and leukopenia. Patient required dopamine briefly but this was weaned off in the facility service associate hours on 05/20/20. Blood pressure has since remained stable and actually now elevated. Blood products have helped improved perfusion. cultures negative (3) COVID-19: Code(s): U07.1 - COVID-19 Status: Acute Assessment and Plan: Chest x-ray reviewed 05/29 showing improvement in inflitrates. COVID positive. . finish Dexamethasone.(07/23) today 05/29. Remdesivir held due to her renal failure. (4) Acute kidney injury superimposed on chronic kidney disease: Code(s): N17.9 - Acute kidney failure, unspecified; N18.9 - Chronic kidney disease, unspecified Status: Acute Assessment and Plan: Patient has CKD stage 4. Creatinine 13.5 on admission. Worsening renal function related to hypotension from hypovolemia and sepsis from COVID. Logan catheter placed 05/19/20 and hemodialysis started. Will do outpatient /Sat at [facility] (5) Chronic anemia: Code(s): D64.9 - Anemia, unspecified Status: Acute Assessment and Plan: Patient with chronic anemia with history of multiple blood transfusions. EGD and colonoscopy approximately 7 years ago reportedly showed no significant findings. Suspect acute anemia from unclear etiology. . LDH 956. Hemoccult negative from NG output. . received 2 units of packed cells, 3 units of FFP, and 1 unit of convalescent plasma hgb 8.1 (05/29) and plat up to 117K (6) Metabolic acidosis: Code(s): E87.2 - Acidosis Status: Acute Assessment and Plan: Secondary to renal failure. No evidence of DKA and lactic acid level normal. She was treated with sodium bicarbonate. Resolved with HD. (7) Pancytopenia: Code(s): D61.818 - Other pancytopenia Status: Acute Assessment and Plan: Etiology not clear but could be acute vs acute/chronic. Viral illnesses can cause pancytopenia. WBC better probably related to the steroids. Plt count up to 117K . Hgb 8.1 and stable. (8) Type 2 diabetes mellitus: Code(s): E11.9 - Type 2 diabetes mellitus without complications Status: Acute Assessment and Plan: A1c 5.1% but possibly falsely low due to the anemia. Diabetes historically has been poorly controlled but family state improved glycemic control more recently. The patient's blood glucose was reviewed on 05/29/20. Glucose remains reasonably well controlled. covered with with sliding scale and lantus while on tube feedings wit
== END 2020-05-29 17:16 | disposition home or self-care (01) | DRG 720 ==
LOC: ANHED 15:51 → ANHICU 18:30 → ANH3MEDSUR 05-29 16:04 → ANHICU 05-30 16:22
PROVIDERS: Internal Medicine; Internal Medicine Hematology & Oncology; Internal Medicine Nephrology; Physician Assistant; Surgery; Admitting Provider Internal Medicine; Emergency Provider Emergency Medicine; Visit Provider Internal Medicine
PROC: 02HV33Z Insertion of Infusion Device into Superior Vena Cava, Percutaneous Approach (ICD-10-PCS; principal; 2020-05-19 16:00)
DX: A41.89 Other specified sepsis (principal); R65.21 Severe sepsis with septic shock; U07.1 COVID-19; J12.89 Other viral pneumonia; J96.01 Acute respiratory failure with hypoxia; E11.21 Type 2 diabetes mellitus with diabetic nephropathy; E11.319 Type 2 diabetes mellitus with unspecified diabetic retinopathy without macular edema; N17.9 Acute kidney failure, unspecified; N18.4 Chronic kidney disease, stage 4 (severe); D61.818 Other pancytopenia; D65 Disseminated intravascular coagulation [defibrination syndrome]; E78.5 Hyperlipidemia, unspecified; E83.51 Hypocalcemia; E11.65 Type 2 diabetes mellitus with hyperglycemia; T38.0X5A Adverse effect of glucocorticoids and synthetic analogues, initial encounter; I50.9 Heart failure, unspecified; I95.9 Hypotension, unspecified; D63.1 Anemia in chronic kidney disease; E87.2 Acidosis; M21.371 Foot drop, right foot; X58.XXXS Exposure to other specified factors, sequela; Z99.2 Dependence on renal dialysis
CPT/HCPCS: 31500; 36415; 36430; 36600; 71045; 76775; 77001; 80048; 80053; 80069; 80307; 81001; 82271; 82274; 82375; 82533; 82550; 82570; 82607; 82728; 82746; 82805; 83036; 83050; 83519; 83540; 83550; 83605; 83615; 83735; 83880; 83883; 83970; 83986; 84100; 84156; 84300; 84439; 84443; 84480; 85014; 85018; 85025; 85027; 85049; 85055; 85380; 85384; 85397; 85610; 85652; 85730; 85999; 86023; 86038; 86140; 86160; 86162; 86334; 86704; 86706; 86803; 86850; 86880; 86900; 86901; 86923; 87040; 87086; 87340; 87635; 92610; 93005; 93306; 93970; 94002; 94003; 94618; 96361; 96365; 96367; 96375; 97110; 97116; 97161; 97165; 97530; 99291; A9270; C1751; C1752; C9113; C9803; G0257; J0131; J0360; J0456; J0610; J0696; J1100; J1265; J1644; J1756; J1815; J2250; J2597; J2704; J3010; J7030; J7050; P9016; P9017; P9059; Q5106; U0003

== ENCOUNTER 2020-06-06 15:33 | Emergency (ER) | payer MEDICAID, SELFPAY ==
[2020-06-06] VITALS (7 sets, daily range): BP systolic 131–150; BP diastolic 56–75; PULSE 87–93; RESP 14–20; TEMP 36.4–37.2; O2SAT 92–100
--- NOTE | ~2020-06-06 | CT_ITS ---
EXAMINATION: CT chest w con, CT UE RT w con DATE: 06/06/2020 19:20 (accession [id number]), 06/06/2020 19:21 (accession [id number]) INDICATION: Dyspnea. Right hand swelling. TECHNIQUE: Computed tomography (CT) of the chest and right upper extremity was performed with 150 cc Omnipaque 350 intravenous contrast. The dose-length product was 802 mGy-cm. Automated exposure control and iterative reconstruction technique were employed. COMPARISON: None FINDINGS: Cardiomegaly. Small pleural effusions, left greater than right. There is mediastinal lympha denopathy. There is extensive patchy airspace consolidation throughout both lungs, consistent with pn eumonia. There is a pericardial effusion. There is subcutaneous edema throughout the right upper extr emity. No fracture or traumatic malalignment. There are spinal stimulator leads. There are multiple i ll-defined nodules in both lungs, most likely infectious/inflammatory. No discrete fluid collection i n the right upper extremity to suggest abscess. There is wedge-shaped appearance to lower thoracic ve rtebra, likely chronic. No osteolytic or osteoblastic lesions. IMPRESSION: 1. Extensive bilateral patchy airspace consolidation with multiple ill-defined nodules in both lungs, most likely pneumonia. 2: Small pleural effusions, left greater than right. 3: Cardiomegaly with pericardial effusion. Reviewed, dictated and finalized at location A. IMPRESSION: 1. Extensive bilateral patchy airspace consolidation with multiple ill-defined nodules in both lungs, most likely pneumonia. 2: Small pleural effusions, left greater than right. 3: Cardiomegaly with pericardial effusion.
--- NOTE | ~2020-06-06 | US_ITS ---
EXAMINATION: US venous doppler UE RT DATE: 06/06/2020 16:45 INDICATION: Right arm swelling and bruising TECHNIQUE: Oates scale images with and without compression and Doppler images of the right upper extre mity veins were obtained. COMPARISON: None. FINDINGS: The right internal jugular vein, subclavian vein, axillary vein, brachial veins, basilic vein, cephal ic vein, radial vein, and ulnar vein are patent.] IMPRESSION: 1. Patent right upper extremity veins. No evidence of deep venous thrombosis. Reviewed, dictated and finalized at location A.
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
--- NOTE | 2020-06-06 16:34 | PC.NURSE ---
Pt to ultrasound via stretcher. Unsuccessful blood draw attempt per [employer] labourer.
[2020-06-06 17:36] LABS: Basophils Percent Auto 0.3 % (0.2-1.2); Eosinophils Percent Auto 0.6 % (0-4.4); Immature Granulocyte Absolute 0.07 K/mm3 (0.00-0.031); Immature Granulocyte Percent A 1.1 % (0-0.5); Lymphocytes Absolute Auto 0.72 K/mm3 (0.9-3.2); Lymphocytes Percent Auto 11.5 % (18.3-44.2); Mean Corpuscular HGB Conc 32.8 g/dl (32-36); Mean Corpuscular Hemoglobin 29.6 pg (26-34); Mean Corpuscular Volume 90.1 fl (80-100); Mean Platelet Volume 10.5 fl (7.4-10.4); Monocytes Absolute Auto 0.8 K/mm3 (0.1-0.6); Monocytes Percent Auto 12.6 % (2.6-8.5); Neutrophils Absolute Auto 4.6 K/mm3 (1.3-6.7); Neutrophils Percent Auto 73.9 % (45.5-73.1); Platelet Count Result 133 k/mm3 (150-375); Red Blood Count 2.23 M/mm3 (4.2-5.4); Red Cell Distribution Width 14.6 % (11.5-14.5); White Blood Count 6.3 K/mm3 (4.5-10.0)
[2020-06-06 17:40] LABS: Hematocrit 20.1 % (37.0-47.0); Hemoglobin 6.6 g/dL (12.0-15.0)
[2020-06-06 17:49] LABS: Anion Gap 11 mmol/L (8-16); Blood Urea Nitrogen 43 mg/dL (7-17); Calcium 7.4 mg/dL (8.4-10.2); Carbon Dioxide 24 mmol/L (22-30); Chloride 96 mmol/L (98-107); Estimated Glomerular Filt Rate 8; Glucose 191 mg/dL (65-105); Potassium 3.9 mmol/L (3.4-5.0); Sodium 131 mmol/L (137-145)
[2020-06-06 18:19] LABS: INR 1.2; Prothrombin Time 15.1 Seconds (11.1-14.7)
[2020-06-06 18:20] LABS: Partial Thromboplastin Time 43.2 SECONDS (22.3-36.8)
--- NOTE | 2020-06-06 19:16 | PC.NURSE ---
Report to [facility]. Pt remains in radiology.
--- NOTE | 2020-06-06 19:27 | PC.NURSE ---
Assumed care of pt at this time. Report from [facility]
--- NOTE | 2020-06-06 19:27 | PC.NURSE ---
Pt. in CT
[2020-06-06] MEDS: SODIUM CHLORIDE 0.9% IV 250 ML 30 ML IV CONT (20:32)
--- NOTE | 2020-06-06 21:05 | PC.NURSE ---
Pt family member requesting pt. not be admitted in hospital Per ERP Ricki pt can sign out ama after receiving unit of blood.
[2020-06-07 13:28] LABS: SARS-CoV-2 RNA PCR Positive
--- NOTE | 2020-06-16 09:50 | PC.NURSE ---
LATE ENTRY This note is being entered to document information to the patient's record. The following information was omitted on [06/06/20], by [Tanya Goddard RN]. NS stop time 2130 1000ml infused
== END 2020-06-06 22:20 | disposition left against medical advice (07) ==
LOC: ANHED 16:04 → ANH3MEDSUR 23:37
PROVIDERS: Emergency Provider Emergency Medicine; Visit Provider Family Medicine
DX: M79.89 Other specified soft tissue disorders (principal); U07.1 COVID-19; E11.22 Type 2 diabetes mellitus with diabetic chronic kidney disease; N18.6 End stage renal disease; I12.0 Hypertensive chronic kidney disease with stage 5 chronic kidney disease or end stage renal disease; E11.319 Type 2 diabetes mellitus with unspecified diabetic retinopathy without macular edema; Z99.2 Dependence on renal dialysis; D63.1 Anemia in chronic kidney disease; E78.5 Hyperlipidemia, unspecified; Z79.84 Long term (current) use of oral hypoglycemic drugs
CPT/HCPCS: 36415; 36430; 71260; 73201; 80048; 85025; 85610; 85730; 86850; 86900; 86901; 86923; 87635; 93971; 96360; 99284; C9803; J7050; P9016; Q9967; U0003